=== PATIENT | male | born 1950 | race Caucasian/White ===

== ENCOUNTER 2018-07-17 10:52 | Inpatient (IN) | payer MEDICARE ==
[~2018-07-17] VITALS: Ht 167.6 cm; Wt 87.6 kg
[~2018-07-17 10:52] MED LIST: ALBU90OI INH; ALBU90OI61 INH; ALUMAG30SU PO; AMLO5 PO; ASPI81CH PO; AZIT500 PO; Aspir 8181 MG PO; BENTYL20 MG PO; BUPRENORPHINE HC8 MG SL; Bumetanide2 MG PO; CARV6.25 PO; CITA20 PO; COMBIVENT INH; COMBIVENT RESPIM4 GM INH; Catapres0.1 MG PO; Clonidine HCl0.2 MG PO; DOCU100 PO; DULERA 200 MCG/13 GM INH; DULO30 PO; FLUSAL2505 IH; FLUSAL2505 INH; FLUSAL5005 INH; GABA300 PO; GUAI600T33 PO; HYDCHL25 PO; Hydrochlorothia25 MG PO; Iron Supplemen325 MG PO; LAMZIDT PO; LEVFLO500 PO; LEVO750 PO; LISI20 PO; LISI5 PO; Lisinopril2.5 MG PO; METH10 PO; METO50 PO; METO50ER PO; MIRALAX119 GM PO; MORP30 PO; NICO14TP TOP; PANT40 PO; PRED10 PO; PRED20 PO; PROM25 PO; Percocet 10-321 EACH PO; Prednisone20 MG PO; SENN187 PO; SIMV10 PO; Stool Softener100 MG PO; TIOT18 INH; TRAZ50 PO; VENL37.5ER PO; VENL75ER PO; Ventolin Soln3 ML INH; Vistaril25 MG PO; Vitamin C1000 M1 PO
[2018-07-17 11:48] LABS: BASOPHILS ABSOLUTE AUTO 0.06 K/mm3 (0.00-0.23); BASOPHILS PERCENT AUTO 0 % (0-2); EOSINOPHILS ABSOLUTE AUTO 0.03 K/mm3 (0.00-0.68); EOSINOPHILS PERCENT AUTO 0 % (0-6); Hematocrit 39.1 % (37.0-53.0); Hemoglobin 11.9 g/dL (13.5-17.5); IMMATURE GRAN ABSOLUTE AUTO 0.23 K/mm3 (0.00-0.10); IMMATURE GRAN PERCENT AUTO 1 % (0-1); LYMPHOCYTES ABSOLUTE AUTO 0.62 K/mm3 (0.84-5.20); LYMPHOCYTES PERCENT AUTO 2 % (21-46); MONOCYTES ABSOLUTE AUTO 1.57 K/mm3 (0.16-1.47); MONOCYTES PERCENT AUTO 6 % (4-13); Mean Corpuscular HGB 30.5 pg (26.0-34.0); Mean Corpuscular HGB Conc 30.4 g/dL (31.5-36.5); Mean Corpuscular Volume 100 fL (80-100); Mean Platelet Volume 11.5 fL (9.1-12.4); NEUTROPHILS ABSOLUTE AUTO 23.28 K/mm3 (1.96-9.15); NEUTROPHILS PERCENT AUTO 90 % (41-73); Platelet Count 196 K/mm3 (150-400); RDW Coefficient Variation 12.1 % (11.7-14.2); RDW Standard Deviation 43.8 fL (35.1-46.3); White Blood Cell Count 25.79 K/mm3 (4.00-11.30)
[2018-07-17 12:13] LABS: Alanine Aminotransfer (ALT/SGP 54 U/L (12-78); Albumin, Blood 3.1 g/dL (3.4-5.0); Albumin/Globulin Ratio 0.8 (0.8-1.8); Alk Phos 165 U/L (50-136); Anion Gap 6 mmol/L (6-16); Aspartate Aminotrans (AST/SGOT 81 U/L (12-37); Bilirubin, Total 0.6 mg/dL (0.1-1.0); Blood Urea Nitrogen 48 mg/dL (8-24); Bun/Creatinine Ratio 20.7 (12.0-20.0); CO2, Blood 37 mmol/L (21-32); Calcium, Blood 9.4 mg/dL (8.5-10.1); Chloride, Blood 96 mmol/L (98-108); Creatinine, Blood 2.32 mg/dL (0.60-1.20); Globulin, Blood 4.1 g/dL (2.2-4.0); Glomerular Filtration Rate 30 (60-); Glucose, Blood 109 mg/dL (70-99); Potassium, Blood 4.2 mmol/L (3.5-5.5); Sodium, Blood 139 mmol/L (136-145); Total Protein, Blood 7.2 g/dL (6.4-8.2); Troponin I <0.015 ng/mL (0.000-0.040)
[2018-07-17] MEDS ORDERED: SERT50 PO (17:54)
[2018-07-17 18:22] LABS: Source, Urine Clean Catch
[2018-07-17 18:27] LABS: Appearance, Urine Hazy (Clear); Bilirubin, Urine Neg (Neg); Blood, Urine 5+ (Neg); Color, Urine Yellow (P-Yellow); Glucose Qualitative, Urine Neg (Neg); Ketones, Urine 1+ (Neg); Leukocyte Esterase, Urine 3+ (Neg); Nitrite, Urine Neg (Neg); Protein, Urine 2+ (Neg); Urobilinogen, Urine NORM (Normal)
[2018-07-17 18:56] LABS: Amorphous Light (0-Heavy); Bacteria Many /hpf; Hyaline Casts 0-2 /lpf (0-2); Squamous Epithelial Cells Few /hpf (Few)
--- NOTE | 2018-07-17 19:13 | NUR ---
SHIFT SUMMARY 1819 PT RECEIVED FROM ER. ALERT AND ORIENTED X3. VSS, SINUS TACHYCARDIA RATE 104 PER TELEMETRY. ABDOMEN DISTENDED, SOFT, TENDER ON PALPATION. PT AWARE OF STRICT NPO STATUS, PT VERBALIZES UNDERSTANDING. LUNG SOUNDS DIMINISHED, EXPIRATORY WHEEZES TO LEFT UPPER LOBE. 1+ PITTING EDEMA TO BLE. PT STANDING AT SIDE OF BED INDEPENDENTLY, DYSPNEA ON EXERTION. C/O 7/10 ABDOMINAL PAIN, MEDICATED WITH PRN PAIN MEDS.
--- NOTE | 2018-07-17 23:46 | NUR ---
24 HOUR URINE STARTED
[2018-07-18 04:22] LABS: Hematocrit 36.9 % (37.0-53.0); Hemoglobin 11.3 g/dL (13.5-17.5); Mean Corpuscular HGB 30.1 pg (26.0-34.0); Mean Corpuscular HGB Conc 30.6 g/dL (31.5-36.5); Mean Corpuscular Volume 98 fL (80-100); Mean Platelet Volume 11.2 fL (9.1-12.4); Platelet Count 203 K/mm3 (150-400); RDW Standard Deviation 43.6 fL (35.1-46.3); Red Blood Cell Count 3.76 M/mm3 (4.30-5.90); White Blood Cell Count 21.25 K/mm3 (4.00-11.30)
[2018-07-18 04:42] LABS: International Normalized Ratio 1.06; Prothrombin Time Results 11.2 Sec (9.7-11.5)
[2018-07-18 04:45] LABS: Albumin, Blood 2.7 g/dL (3.4-5.0); Anion Gap 4 mmol/L (6-16); BAND PERCENT MAN 11 % (0-8); BASOPHILS PERCENT MAN 0 % (0-2); Blood Urea Nitrogen 49 mg/dL (8-24); Bun/Creatinine Ratio 23.2 (12.0-20.0); CO2, Blood 38 mmol/L (21-32); Calcium, Blood 9.1 mg/dL (8.5-10.1); Chloride, Blood 99 mmol/L (98-108); Creatinine, Blood 2.11 mg/dL (0.60-1.20); EOSINOPHILS PERCENT MAN 0 % (0-6); Glomerular Filtration Rate 33 (60-); Glucose, Blood 137 mg/dL (70-99); MONOCYTES ABSOLUTE MAN 0.21 K/mm3 (0.16-1.47); MONOCYTES PERCENT MAN 1 % (4-13); MYELOCYTE ABSOLUTE MAN 0.21 K/mm3 (0.00-0.00); MYELOCYTE PERCENT MAN 1 % (0-0); Magnesium, Blood 2.2 mg/dL (1.6-2.4); NEUTROPHILS ABSOLUTE MAN 20.82 K/mm3 (1.96-9.15); Phosphorus, Blood 3.5 mg/dL (2.5-4.9); Potassium, Blood 4.1 mmol/L (3.5-5.5); SEG NEUTROPHILS PERCENT MAN 87 % (41-73); Sodium, Blood 141 mmol/L (136-145); TOTAL CELLS COUNTED 100
--- NOTE | 2018-07-18 06:53 | NUR ---
PCU NOC SHIFT SUMMARY PATIENT ALERT AND ORIENTED X4. RESP E/U ON 4 LPM NC. VSS. L/S COARSE TO DIM. PATIENTS ABD DISTENDED, FIRM, TENDER AND PAINFUL TO PALPATION. PATIENT MEDICATED FOR PAIN PER EMAR. FLUIDS RUNNING VIA IV PER EMAR. CANNON SAW PATIENT THIS SHIFT AND REDUCED FLUIDS BY 25MLS/HR. NO ACUTE EVENTS T/O SHIFT. VSS. REPORTED BACK TO KOLBY LENZ RN.
--- NOTE | 2018-07-18 13:44 | NUR ---
SANDRINE Be RN CALLED OUT FROM OR2. NOTIFIED US OF PT POSSIBLY NEEDING A VENT. RT CAME AND SET UP VENT IN PACU DUE TO NOT HAVING AVAILABILE BED IN ICU. SPOT 3 READY WITH APPROPRIATE EQUIPMENT FRO PT ARRIVAL FROM OR2.
--- NOTE | 2018-07-18 13:47 | NUR ---
07/18/18 1347 Keo Khan PATIENT ON SCHEDULED ANTIBIOTICS
--- NOTE | 2018-07-18 15:30 | NUR ---
PT TRANSFERRED FROM DAY SURG TO ICU 11 DUE TO INTUBATION. SETTINGS AT PRESSURE SUPPORT 450/PEEP 5/45% FIO2. OG IN PLACE AT LIS PER INSTRUCTION FROM DR DURHAM. ALLAN CATH PLACED PER DR DURHAM. SCDS IN PLACE AND BILATERAL WRIST RESTRAINTS. AWAITING 3RD IV PLACEMENT FOR MAINTENANCE FLUIDS DUE TO IV INCOMPATIBILITIES. CAN CARRIER AWARE.
--- NOTE | 2018-07-18 16:43 | NUR ---
RECEIVED PT FROM OR2 WITH ETT IN PLACE. RT AVAILABLE TO HOOK PT UP TO VENT ON ARRIVAL. PT PLACED ON PRESSURE SUPPORT, FI02 50%, TV 450, PEEP 5. SATS MAINTAINED HIGH 90'S T/O RECOVERY ACCEPT WHEN TO AWAKE. WRIST RESTRAINTS APPLIED, NEW 18G TO LEFT WRIST PLACED, HELD OFF PLACING THE OGT OR ALLAN TILL RECEIVED PROPOFOL DUE TO DECREASED STABILITY WITH FENTANYL COVERAGE. SPOKE TO DR DRUHAM AND RECEIVED ORDERS. CXR DONE. REPORT GIVEN. PT TOLERATED PROPOFOL AT 40MCGS DURING PACU STAY. ALLAN CATHETER PASSED TO ICU STAFF ALONG WITH REPORT REGARDING 24 HOUR URINE IN PROGRESS.
[2018-07-18 16:55] LABS: PCO2 Arterial 58.5 mmHg (35-45); PO2 Arterial 59.7 mmHg (80-100); pH Blood Arterial 7.39 (7.35-7.45)
--- NOTE | 2018-07-18 18:39 | NUR ---
SHIFT SUMMARY: PT REMAINS INTUBATED, AC 16/400/. PROPOFOL AT 30 MCG/KG/MIN. GETS AGITATED WITH REPOSITIONING AND STIMULATION. ALLAN BAG ON ICE FOR 24 HOUR URINE TEST. OG PUTTING OUT GREEN SECRETIONS. PLAN IS TO START WEANING IN AM. NO FURTHER NEEDS OR CONCERNS AT THIS TIME
--- NOTE | 2018-07-18 19:15 | NUR ---
ASSUMING CARE OF PT AT THIS TIME. PT REPORT RECEIVED AT BEDSIDE WITH OFFGOING NURSE, BILL QUIROS. PT LAYING IN BED, INTUBATED, AND SEDATED UPON ENTERING THE ROOM. VS STABLE - SEE VS FS. PT DOES NOT APPEAR TO BE IN DISTRESS AT THIS TIME. WILL REVIEW PLAN OF CARE.
--- NOTE | 2018-07-18 19:30 | NUR ---
ASSESSMENT PT CALM, COOPERATIVE, INCREASED AGITATION AND RESLTESSNESS WITH DECREASED SEDATION, RESPONDS TO VERBAL AND PAINFUL STIMULI, DOES NOT OPEN EYES, DOES NOT TRACK WITH EYES, NO MOVEMENT OF EYES, DOES NOT FOLLOW COMMANDS, DOES NOT NOD HEAD Y/N TO QUESTIONS. PROPOFOL AT 30 MCG/KG/MIN - WILL TITRATE TO EFFECT. NAFISA SENSATION. PT MADRIGAL. SLIGHT WEAKNESS NOTED FROM BASELINE. S/SX OF PAIN/DISCOMFORT NOTED. CNVI 3. MEDICATED WITH FENT PER PHYSICIAN'S ORDER / UTILIZED NONPHARM METHODS. NO S/SX OF PAIN/DSICOMFORT NOTED AFTER ADMINSITERING FENT. PT IN BILAT WRIST RESTRAINTS TO PROTECT VITAL LINES/CORDS/TUBES AND TO PROTECT FROM SELF EXTUBATION. LUNGS CLEAR, LOWER LOBES DIMINIHSED. VENT SETTINGS: AC 16, TV 400, PEEP 5, FIO2 45%. RR 20'S. OXY SAT >90%. SUCTION VIA ETT: SMALL AMOUNTS OF THIN CLEAR SECRETIONS. AFEBRILE. NSR. HR 90'S. SBP 160'S. STRONG PULSES. EDEMA BLE'S. WARM, PINK SKIN. INCREASED RR, HR, AND BP NOTED WITH DECREASED SEDATION. HYPOACTIVE BT X4 QUADRANTS. ABD SOFT, TENDER WITH PALPATION, MOD DIST. OG IN PLACE. OG TO LIS: SMALL AMOUNTS OF GREEN/YELLOW SECRETIONS IN OG. NO BM. NPO D/T INTUBATION. WOUND VAC ABD - NO OUTPUT NOTED. F/C IN PLACE: CLEAR YELLOW URINE NOTED. [address] UNTIL 2344. PIV X3. D5W NS AT 50 ML/HR.
--- NOTE | 2018-07-18 23:45 | NUR ---
24 HR URINE 24 HR URINE COMPLETED AT THIS TIME. 24 HR URINE SENT TO LAB.
[2018-07-19 03:22] LABS: BASOPHILS ABSOLUTE AUTO 0.01 K/mm3 (0.00-0.23); BASOPHILS PERCENT AUTO 0 % (0-2); EOSINOPHILS PERCENT AUTO 0 % (0-6); Hematocrit 32.4 % (37.0-53.0); Hemoglobin 10.2 g/dL (13.5-17.5); IMMATURE GRAN ABSOLUTE AUTO 0.11 K/mm3 (0.00-0.10); IMMATURE GRAN PERCENT AUTO 1 % (0-1); LYMPHOCYTES ABSOLUTE AUTO 0.28 K/mm3 (0.84-5.20); LYMPHOCYTES PERCENT AUTO 2 % (21-46); MONOCYTES ABSOLUTE AUTO 0.68 K/mm3 (0.16-1.47); MONOCYTES PERCENT AUTO 4 % (4-13); Mean Corpuscular HGB Conc 31.5 g/dL (31.5-36.5); Mean Corpuscular Volume 99 fL (80-100); Mean Platelet Volume 11.2 fL (9.1-12.4); NEUTROPHILS ABSOLUTE AUTO 16.14 K/mm3 (1.96-9.15); NEUTROPHILS PERCENT AUTO 94 % (41-73); Platelet Count 178 K/mm3 (150-400); RDW Standard Deviation 43.3 fL (35.1-46.3); Red Blood Cell Count 3.29 M/mm3 (4.30-5.90); White Blood Cell Count 17.22 K/mm3 (4.00-11.30)
[2018-07-19 03:36] LABS: Albumin, Blood 2.1 g/dL (3.4-5.0); Anion Gap 4 mmol/L (6-16); Blood Urea Nitrogen 46 mg/dL (8-24); Bun/Creatinine Ratio 28.4 (12.0-20.0); CO2, Blood 36 mmol/L (21-32); Calcium, Blood 8.5 mg/dL (8.5-10.1); Chloride, Blood 104 mmol/L (98-108); Creatinine, Blood 1.62 mg/dL (0.60-1.20); Glomerular Filtration Rate 45 (60-); Glucose, Blood 185 mg/dL (70-99); Magnesium, Blood 2.1 mg/dL (1.6-2.4); Phosphorus, Blood 1.6 mg/dL (2.5-4.9); Potassium, Blood 3.4 mmol/L (3.5-5.5); Sodium, Blood 144 mmol/L (136-145)
[2018-07-19 04:41] LABS: PCO2 Arterial 60.1 mmHg (35-45); PO2 Arterial 63.4 mmHg (80-100)
--- NOTE | 2018-07-19 05:00 | NUR ---
DR. CANNON CALLED DR. CANNON AT THIS TIME. INFORMED DR. CANNON OF AM LABS, MAINTAINCE FLUID, AND UO. DR. CANNON ORDERED POTASSIUM PHOS 20 MM IV. WAITING FOR MEDICATION FROM PHARMACY AT THIS TIME.
--- NOTE | 2018-07-19 05:13 | NUR ---
SHIFT ASSESSMENT NO ACUTE CHANGES NOTED T/O SHIFT. PT CALM WHILE ON SEDATION, COOPERATIVE, INCREASED AGITATION/ANXIETY/RESTLESSNESS WITH DECREASED SEDATION, RESPONDS TO VERBAL AND PAINFUL STIMULI, OPENED EYES SPONT DURING SEDATION VACATION, TRACKED WITH EYES DURING SEDATION VACATION, FOLLOWED COMMANDS DURING SEDATION VACATION, NODDED HEAD Y/N TO QUESTIONS DURING SEDATION VACATION. PROPOFOL CURRENTLY AT 40 MCG/KG/MIN - CONT TO TITRATE TO EFFECT. PT NODDED HEAD YES TO SENSATION INTACT BUE'S, NODDED HEAD NO TO N/T IN BUE'S, AND NODDED HEAD YES TO N/T BLE'S. PT MADRIGAL. SLIGHT WEAKNESS NOTED. S/SX OF PAIN/DISCOMFORT NOTED T/O SHIFT. PT NODDED HEAD YES TO PAIN/DISCOMFORT THIS AM. CONT TO MEDICATE WITH PAIN MEDS PER PHYSICIAN'S ORDER / UTILIZE NONPHARM METHODS. PT IN BILAT WRIST RESTRAINTS TO PROTECT VITAL LINES/CORDS/TUBES AND TO PROTECT FROM SELF-EXTUBATION. LUNGS CLEAR, LOWER LOBES DIMINISHED. VENT SETTINGS: AC 16, TV 400, PEEP 5, FIO2 40%. CONT TO TITRATE FIO2 TO MAINTAIN SPO2. RR 15 TO 30'S. SBT COMPLETED THIS AM BY RT ANDREW (SEE RT NOTE) ON PRESSURE SUPPORT 7, PEEP 5, FIO2 40%. SUCTION VIA ETT: SMALL AMOUNTS OF THIN CLEAR SECRETIONS. AFEBRILE. NSR WITH PVC'S. HR 70'S TO 90'S. BP STABLE - SEE VS FS. STRONG PULSES. EDEMA BLE'S. WARM, PINK SKIN. INCREASED RR, HR, AND BP NOATED WTIH DECREASED SEDATION. HYPOACTIVE BT X4 QUADRANTS. ABD SOFT, TENDER WITH PALPATION, MOD DIST. OG IN PLACE. OG TO LIS: SMALL AMOUNTS OF GREEN/YELLOW SECRETIONS IN OG TUBE. NO BM T/O SHIFT. NPO D/T INTUBATION. WOUND VAC ABD - NO OUTPUT. F/C IN PLACE: YELLOW CLOUDY URINE. 24 HR URINE COMPLETED AT 2345. PIV X3. D5W NS AT 50 ML/HR. NS TKO AT 10 ML/HR. WAITING FOR POTASSIUM PHOS IV FROM PHARMACY AT THIS TIME. WILL CONT TO MONITOR PT AND WILL PROVIDE BEDSIDE REPORT TO ONCOMING NURSE THIS AM.
--- NOTE | 2018-07-19 07:40 | NUR ---
ASSUMED CARE: PT RESTING IN BED, INTUBATED ON AC 14/400/40%/5. PROPOFOL AT 30MCG/KG/MIN. MINIMAL SECRETIONS FROM LUNGS NOTED. RESTRAINTS IN PLACE, OG PUTTING OUT GREEN SECRETIONS, SMALL AMOUNTS. ALLAN IN PLACE. PLAN IS FOR EXTUBATION TODAY.
--- NOTE | 2018-07-19 10:15 | NUR ---
DR DURHAM CAME TO SEE PT, PUT HIM ON SPONTANEOUS. PROPOFOL OFF, ALLOWING PT TO ROUSE MORE. CURRENTLY HE OPENS HIS EYES AND NODS HIS HEAD WHEN HE HEARS HIS NAME OR TO YES/NO QUESTIONS.
--- NOTE | 2018-07-19 11:00 | NUR ---
PT EXTUBATED. 5L O2 VIA NC. DOES NOT APPEAR TO BE IN ANY ACUTE DISTRESS
--- NOTE | 2018-07-19 18:05 | NUR ---
SHIFT SUMMARY: PT ON 5L NC POST EXTUBATION, SATTING LOW 90S. MEDICATED X2 FOR PAIN. REPOSITIONED IN BED FOR COMFORT. DRESSING IN TACT TO RIGHT MID ABDOMEN. DECLINES FURTHER NEEDS OR CONCERNS AT THIS TIME.
--- NOTE | 2018-07-19 21:39 | NUR ---
ASSUMED CARE PT IS ON 5L O2 NASAL CANULA. PT IS A&OX4; DENIES NEEDS CURRENTLY.
[2018-07-20 03:28] LABS: BASOPHILS ABSOLUTE AUTO 0.02 K/mm3 (0.00-0.23); BASOPHILS PERCENT AUTO 0 % (0-2); EOSINOPHILS PERCENT AUTO 0 % (0-6); Hematocrit 34.3 % (37.0-53.0); Hemoglobin 10.5 g/dL (13.5-17.5); IMMATURE GRAN ABSOLUTE AUTO 0.18 K/mm3 (0.00-0.10); IMMATURE GRAN PERCENT AUTO 1 % (0-1); LYMPHOCYTES ABSOLUTE AUTO 0.32 K/mm3 (0.84-5.20); LYMPHOCYTES PERCENT AUTO 2 % (21-46); MONOCYTES ABSOLUTE AUTO 0.63 K/mm3 (0.16-1.47); MONOCYTES PERCENT AUTO 3 % (4-13); Mean Corpuscular HGB 29.8 pg (26.0-34.0); Mean Corpuscular HGB Conc 30.6 g/dL (31.5-36.5); Mean Corpuscular Volume 97 fL (80-100); Mean Platelet Volume 11.1 fL (9.1-12.4); NEUTROPHILS ABSOLUTE AUTO 17.36 K/mm3 (1.96-9.15); NEUTROPHILS PERCENT AUTO 94 % (41-73); Platelet Count 177 K/mm3 (150-400); RDW Coefficient Variation 12.3 % (11.7-14.2); Red Blood Cell Count 3.52 M/mm3 (4.30-5.90); White Blood Cell Count 18.51 K/mm3 (4.00-11.30)
[2018-07-20 03:44] LABS: Albumin, Blood 2.1 g/dL (3.4-5.0); Anion Gap 4 mmol/L (6-16); Blood Urea Nitrogen 36 mg/dL (8-24); CO2, Blood 35 mmol/L (21-32); Calcium, Blood 8.4 mg/dL (8.5-10.1); Chloride, Blood 109 mmol/L (98-108); Creatinine, Blood 1.44 mg/dL (0.60-1.20); Glomerular Filtration Rate 52 (60-); Glucose, Blood 134 mg/dL (70-99); Magnesium, Blood 2.2 mg/dL (1.6-2.4); Sodium, Blood 148 mmol/L (136-145)
[2018-07-20 05:07] LABS: PCO2 Arterial 66.9 mmHg (35-45); PO2 Arterial 64.2 mmHg (80-100); pH Blood Arterial 7.34 (7.35-7.45)
--- NOTE | 2018-07-20 06:21 | NUR ---
SHIFT SUMMARY PT IS ALERT AND ORIENTED X 4 AND SLEPT THROUGH MOST OF THE NIGHT. PAIN IS ADEQUATELY CONTROLLED WITH 2MG DILAUDID Q2H. PT IS ON 5L NC. CURRENT GTTS: D5W @ 75ML/HR. WOUND VAC INTACT; DERESSING C/D/I.
--- NOTE | 2018-07-20 08:33 | NUR ---
NURSING PCU DAYSHIFT: Assumed care of pt at approx 0700. A/O, pleasant, cooperative w/care. Noted general weakness. C/O 7/10 abd pain r/t recent procedure, treating w/meds and positioning. Skin is fragile w/scattered bruising and scabs on ext's, R abd incision w/prevena vac in place. Cardiac monitoring present, NSR w/PVC's, no c/o CP/pressure, general SHAKE SAWYER edema. L/S w/exp wheezes t/o, respirations shallow, fine crackles to LLL, O2 sat stable on 5L NC, occ congested/SHAKE SAWYER cough. Abd mildly distended, tender, BT hypoactive, tolerating CL diet, FC w/stat lock present and draining well. PIV x2, s/l. Pt denies any current questions/needs at this time. Call light in reach, able to use w/o difficulty. Seen by nephrology, new d/o received, awaiting rounding from surgeon and PMD. Cont to monitor for any changes.
--- NOTE | 2018-07-20 09:09 | NUR ---
NURSING ICU DAYSHIFT: Assumed care of pt at approx 0700. A/O, pleasant, cooperative w/care. Noted general weakness. C/O 10/26 abd pain r/t recent procedure, treating w/meds and positioning. Skin is fragile w/scattered bruising and scabs on ext's, R abd incision w/prevena vac in place. Cardiac monitoring present, NSR w/PVC's, no c/o CP/pressure, general MATTRESS SPECIALIST edema. L/S w/exp wheezes t/o, respirations shallow, fine crackles to LLL, O2 sat stable on 5L NC, occ congested/MATTRESS SPECIALIST cough. Abd mildly distended, tender, BT hypoactive, tolerating CL diet, FC w/stat lock present and draining well. PIV x2, D5 infusing at 75cc as per d/o. Pt denies any current questions/needs at this time. Call light in reach, able to use w/o difficulty. Seen by nephrology, new d/o received, awaiting rounding from surgeon and PMD. Cont to monitor for any changes.
--- NOTE | 2018-07-20 09:09 | NUR ---
NURSING PCU DAYSHIFT: Assumed care of pt at approx 0700. A/O, pleasant, cooperative w/care. Noted general weakness. C/O 7/10 abd pain r/t recent procedure, treating w/meds and positioning. Skin is fragile w/scattered bruising and scabs on ext's, R abd incision w/prevena vac in place. Cardiac monitoring present, NSR w/PVC's, no c/o CP/pressure, general CONSTRUCTION RIGGER edema. L/S w/exp wheezes t/o, respirations shallow, fine crackles to LLL, O2 sat stable on 5L NC, occ congested/CONSTRUCTION RIGGER cough. Abd mildly distended, tender, BT hypoactive, tolerating CL diet, FC w/stat lock present and draining well. PIV x2, D5 infusing at 75cc as per d/o. Pt denies any current questions/needs at this time. Call light in reach, able to use w/o difficulty. Seen by nephrology, new d/o received, awaiting rounding from surgeon and PMD. Cont to monitor for any changes.
--- NOTE | 2018-07-20 10:44 | NUR ---
NOTED CONFUSION/FORGETFUL Though pt was oriented this a.m., intermittent confusion and forgetfulness has been noted. Pt asked who had eaten most of his CL breakfast this a.m. and had no recollection of what care was completed the previous hour. Intermittent irritability also noted followed by pt apologizing and stating he is not sure as to why he is making irritable comments. Appears to be resting comfortably at this time. Call light remains in reach, cont to monitor for any changes.
--- NOTE | 2018-07-20 13:49 | NUR ---
NURSING ICU TRANSFER SUMMARY: No acute changes noted t/o the a.m. Seen by anesthesiology medical doctor, new d/o received. Pt changed to surgical status w/o tele, bed assignment received, rpt given. Call placed to daughter, no answer, will notify accepting RN. No s/s of acute distress at this time, will xfer to surgical unit via bed, monitor until xfer is completed.
--- NOTE | 2018-07-20 17:37 | NUR ---
SHIFT SUMMARY PT HAS DONE WELL SINCE ARRIVAL TO UNIT. MEDICATED ONCE WITH IV DILAUDID, WILL SWITCH TO ORAL PERCOCET. O2 TITRATED TO 4L NC, O2 SAT 94%.
--- NOTE | 2018-07-20 18:24 | NUR ---
VS THIS AFTERNOON WERE HYPERTENSIVE. RECHECK B/P, 152/72 WHILE AT REST. PT REPORTS VS THIS AFTERNOON WERE AFTER TRANSFERING TO BS.
[2018-07-21 06:24] LABS: BASOPHILS ABSOLUTE AUTO 0.03 K/mm3 (0.00-0.23); BASOPHILS PERCENT AUTO 0 % (0-2); EOSINOPHILS PERCENT AUTO 0 % (0-6); Hematocrit 33.7 % (37.0-53.0); Hemoglobin 10.2 g/dL (13.5-17.5); IMMATURE GRAN ABSOLUTE AUTO 0.37 K/mm3 (0.00-0.10); IMMATURE GRAN PERCENT AUTO 2 % (0-1); LYMPHOCYTES ABSOLUTE AUTO 0.96 K/mm3 (0.84-5.20); LYMPHOCYTES PERCENT AUTO 5 % (21-46); MONOCYTES ABSOLUTE AUTO 1.13 K/mm3 (0.16-1.47); MONOCYTES PERCENT AUTO 6 % (4-13); Mean Corpuscular HGB 30.4 pg (26.0-34.0); Mean Corpuscular HGB Conc 30.3 g/dL (31.5-36.5); Mean Corpuscular Volume 100 fL (80-100); Mean Platelet Volume 11.4 fL (9.1-12.4); NEUTROPHILS ABSOLUTE AUTO 15.74 K/mm3 (1.96-9.15); NEUTROPHILS PERCENT AUTO 86 % (41-73); Platelet Count 175 K/mm3 (150-400); RDW Coefficient Variation 12.3 % (11.7-14.2); RDW Standard Deviation 45.3 fL (35.1-46.3); Red Blood Cell Count 3.36 M/mm3 (4.30-5.90); White Blood Cell Count 18.23 K/mm3 (4.00-11.30)
--- NOTE | 2018-07-21 06:32 | NUR ---
SUMMARY: NO ACUTE CHANGE THIS SHIFT. PT SLEPT WELL. UP TO VOID X2. ATTEMPTING TO WEAN 02 UNSUCCESSFUL. PT IS ON 4.5 L, SATS 88-94%. PT HAS DYSAPNEA ON EXERTION, TAKES A GOOD AMOUNT OF TIME TO RECOVER. ENCOURAGING PURSED LIP BREATHING AFTER EXERTION. VSS AND SURGICAL SITE WNL. PT TOLERATING FULL LIQ DIET, DENIES N/V. PT DENIED PAIN TONIGHT. WILL CTM PT STATUS AND REPORT TO DAY RN
[2018-07-21 06:50] LABS: Magnesium, Blood 2.4 mg/dL (1.6-2.4)
[2018-07-21 06:51] LABS: Alanine Aminotransfer (ALT/SGP 35 U/L (12-78); Albumin/Globulin Ratio 0.5 (0.8-1.8); Alk Phos 89 U/L (50-136); Anion Gap 4 mmol/L (6-16); Aspartate Aminotrans (AST/SGOT 33 U/L (12-37); Bilirubin, Total 0.8 mg/dL (0.1-1.0); Blood Urea Nitrogen 35 mg/dL (8-24); Bun/Creatinine Ratio 24.5 (12.0-20.0); CO2, Blood 36 mmol/L (21-32); Calcium, Blood 8.6 mg/dL (8.5-10.1); Chloride, Blood 107 mmol/L (98-108); Creatinine, Blood 1.43 mg/dL (0.60-1.20); Globulin, Blood 3.7 g/dL (2.2-4.0); Glomerular Filtration Rate 52 (60-); Glucose, Blood 128 mg/dL (70-99); Phosphorus, Blood 2.2 mg/dL (2.5-4.9); Potassium, Blood 3.7 mmol/L (3.5-5.5); Sodium, Blood 147 mmol/L (136-145); Total Protein, Blood 5.7 g/dL (6.4-8.2)
[2018-07-21 10:44] LABS: PCO2 Arterial 69.2 mmHg (35-45); PO2 Arterial 64.7 mmHg (80-100); pH Blood Arterial 7.33 (7.35-7.45)
[2018-07-21 11:08] LABS: ALDOS/RENIN RATIO <1.3 (0.0-30.0); ALDOSTERONE <1.0 ng/dL (0.0-30.0)
--- NOTE | 2018-07-21 13:27 | NUR ---
PT HAD INCREASED CONFUSION AT APROX 1030, ORIENTED TO SELF BUT DID NOT KNOW YEAR/PLACE/SITUATION. PT ALSO HAS VISABLE TREMORS IN BUE. DR MÉNDEZ NOTIFIED-ORDER FOR ABG. PER RESULTS CO2 69, NOTIFED AND ORDER FOR BIPAP PLACED. RT NOTIFIED AND BIPAP WAS PLACED ON PATIENT. TOLERATING WELL.
--- NOTE | 2018-07-21 18:45 | NUR ---
SHIFT SUMMARY PT C/O THAT HE "CAN'T BREATHE" WHILE WEARING BI-PAP-ONLY ABLE TO TOELRATE FOR APROX 4 HRS WHILE HE SLEPT. TRIED TO TITRATE O2 TO 4.5L NC, O2 SAT DROPPED TO 85% SO PT INCREASED BACK UP TO 5L NC-O2 SAT 92%. PAIN MEDICATION SWITCHED TO ULTRAM-PT REPORTS GOOD RESULTS WITH THIS.
[2018-07-22 03:39] LABS: PO2 Arterial 67.3 mmHg (80-100); pH Blood Arterial 7.39 (7.35-7.45)
[2018-07-22 04:19] LABS: Hematocrit 33.3 % (37.0-53.0); Hemoglobin 10.2 g/dL (13.5-17.5)
[2018-07-22 04:38] LABS: Albumin, Blood 2.1 g/dL (3.4-5.0); Anion Gap 2 mmol/L (6-16); Blood Urea Nitrogen 31 mg/dL (8-24); Bun/Creatinine Ratio 22.1 (12.0-20.0); CO2, Blood 37 mmol/L (21-32); Calcium, Blood 8.5 mg/dL (8.5-10.1); Chloride, Blood 106 mmol/L (98-108); Glomerular Filtration Rate 53 (60-); Glucose, Blood 106 mg/dL (70-99); Magnesium, Blood 2.2 mg/dL (1.6-2.4); Phosphorus, Blood 2.3 mg/dL (2.5-4.9); Potassium, Blood 3.4 mmol/L (3.5-5.5); Sodium, Blood 145 mmol/L (136-145)
--- NOTE | 2018-07-22 06:31 | NUR ---
SUMMARY: SEE RT ASSESSMENTS ASWELL. PT HAS BEEN A/O TONIGHT. ATTEMPTING TO USE BIPAP WITH POOR RESULT. SP02 UNABLE TO BE MAINTAINED ABOVE 86%, AT TIMES PT WOULD BE AT 88 OR 89%, BUT THEN DROP BACK TO 84-86 RANGE. SETTINGS ADJUSTED ON BIPAP MULTIPLE TIMES AND PT REPOSITIONED. RT IN TO ASSESS PT SERVERAL TIMES, WHEN BIPAP CONTINUED TO ALARM. AT ABOUT 0300, RT PUT PT BACK ON 7L NC AND PT SPO2 AT 88-92%. DR. SHEETS NOTIFIED OF PT STATUS AND 2 VIEW CHEST XRAY ORDERED ALONG WITH ABG AND BNP. NO CRITICAL RESULTS WITH DRAWS. PT HAS REMAINED A/O, PT SEEMING TO BE BETTER THIS AM. PT WEARING BIPAP AND SP02 CURRENTLY 88% OTHERWISE PT STABLE, VSS, MEDICATED FOR PAIN X1. SURGICAL SITE WNL. PT GETTING UP TO COMMODE SBA, DYSAPNEA WITH EXERTION. WILL CTM PT STATUS AND REPORT TO DAY RN
--- NOTE | 2018-07-22 07:43 | NUR ---
AT ABOUT 0713 PT REPORTED PAIN AND STATES THAT HE WANTS THE DOCTOR CALLED BECAUSE HE IS SO PAINFUL. PT REPORTS TO THIS RN THAT HE SPECIFICALLY ASKED THAT I CALL THE DOCTOR TONIGHT AND IS ANGRY THE DOCTOR WAS NOT CALLED. PT DID NOT SPEAK TO THIS RN ABOUT THIS THIS SHIFT AND PT WAS ASKED ABOUT PAIN TONIGHT, IN WHICH PT DENIED NEED FOR PAIN MEDICATION EXCEPT FOR START OF SHIFT, AND PT WAS MEDICATED. PT GIVEN AN ULTRAM AT THIS TIME. WILL MAKE DAY RN AWARE.
[2018-07-22 11:07] LABS: CREATININE, URINE 70.8 mg/dL (Not Estab.)
--- NOTE | 2018-07-22 17:31 | NUR ---
SHIFT SUMMARY NO ACUTE CHANGES THIS SHIFT. PT DOING BETTER TODAY. LUNGS WITH FINE CRACKLES IN THE BASES. PT GETS VERY SOB OF WITH EXERTION AND IS ALSO SOB AT REST AT TIMES. BREATHING TXS PER RT. CONT BIOX IN PLACE. ON 5L NC SATTING BETWEEN 90-93%. PT UP TO BSC WITH 1 SBA. DIET ADVANCED TO REGULAR AND PT FRANK WELL WITH NO N/V. PT REPORTS PASSING GAS. IVF INFUSING PER ORDERS. PROVENA WOUND VAC IN PLACE AND IS CDI. PT USES CALL LIGHT APPROPRIATELY. PT PLANNING TO DC TO SNF POSSIBLY TOMORROW.
[2018-07-22 22:07] LABS: METANEPHRINE, UR 282 ug/L (Undefined)
[2018-07-23 04:57] LABS: Hematocrit 31.9 % (37.0-53.0); Hemoglobin 9.7 g/dL (13.5-17.5)
[2018-07-23 05:12] LABS: Albumin, Blood 2.1 g/dL (3.4-5.0); Anion Gap 3 mmol/L (6-16); Blood Urea Nitrogen 28 mg/dL (8-24); Bun/Creatinine Ratio 18.4 (12.0-20.0); CO2, Blood 38 mmol/L (21-32); Calcium, Blood 8.3 mg/dL (8.5-10.1); Chloride, Blood 105 mmol/L (98-108); Creatinine, Blood 1.52 mg/dL (0.60-1.20); Glomerular Filtration Rate 49 (60-); Glucose, Blood 113 mg/dL (70-99); Magnesium, Blood 2.3 mg/dL (1.6-2.4); Phosphorus, Blood 3.1 mg/dL (2.5-4.9); Potassium, Blood 3.8 mmol/L (3.5-5.5); Sodium, Blood 146 mmol/L (136-145)
--- NOTE | 2018-07-23 06:55 | NUR ---
recvd report from previous shift rn summer, pt lying in bed, a/0 x4, pleasant/cooperative, 5l nc with lungs diminished, slight exp wheeze in bases. bed in lowest position, call light within reach, bed rails up x 2
--- NOTE | 2018-07-23 16:43 | NUR ---
shift summary: vss, no acute changes. pt remained on continuous bioxx with spo2 >92% on 5l NC. pt reports SOB with talking and exertion. DC IV fluids per Dr Moreno, administered Lasix with urine output >500 ml. pt up in chair x 1, worked with physical therapy x 1, reports feeling weak. pt states he does not feel he would be able to go home. This RN spoke with Dr Swenson, who agrees pt will most likely need to continue in the hospital this weekend, SNF on wednesday if bed is available. PT recommends SNF placement as well following today's therapy. pt reports slight nausea, no vomiting, reports he is "just not hungry" at lunch time, only drinks approx 150 ml coffee. provided pt with antinausea medication per jun.
--- NOTE | 2018-07-23 22:43 | NUR ---
PT YELLING AT STAFF. PT STATES HE ASKED TO USE RESTROOM HOWEVER HE DID NOT ASK ANY STAFF MEMBER TO USE RESTROOM. PT APPEARS CONFUSED.
[2018-07-24 04:50] LABS: BASOPHILS ABSOLUTE AUTO 0.02 K/mm3 (0.00-0.23); BASOPHILS PERCENT AUTO 0 % (0-2); EOSINOPHILS ABSOLUTE AUTO 0.44 K/mm3 (0.00-0.68); EOSINOPHILS PERCENT AUTO 4 % (0-6); Hematocrit 32.4 % (37.0-53.0); Hemoglobin 9.8 g/dL (13.5-17.5); IMMATURE GRAN ABSOLUTE AUTO 0.45 K/mm3 (0.00-0.10); IMMATURE GRAN PERCENT AUTO 4 % (0-1); LYMPHOCYTES ABSOLUTE AUTO 0.91 K/mm3 (0.84-5.20); LYMPHOCYTES PERCENT AUTO 8 % (21-46); MONOCYTES ABSOLUTE AUTO 0.81 K/mm3 (0.16-1.47); MONOCYTES PERCENT AUTO 7 % (4-13); Mean Corpuscular HGB Conc 30.2 g/dL (31.5-36.5); Mean Corpuscular Volume 99 fL (80-100); Mean Platelet Volume 10.4 fL (9.1-12.4); NEUTROPHILS ABSOLUTE AUTO 9.09 K/mm3 (1.96-9.15); NEUTROPHILS PERCENT AUTO 78 % (41-73); Platelet Count 177 K/mm3 (150-400); RDW Coefficient Variation 12.2 % (11.7-14.2); RDW Standard Deviation 44.3 fL (35.1-46.3); Red Blood Cell Count 3.27 M/mm3 (4.30-5.90); White Blood Cell Count 11.72 K/mm3 (4.00-11.30)
[2018-07-24 05:12] LABS: Albumin, Blood 2.2 g/dL (3.4-5.0); Anion Gap 3 mmol/L (6-16); Blood Urea Nitrogen 24 mg/dL (8-24); Bun/Creatinine Ratio 15.5 (12.0-20.0); CO2, Blood 36 mmol/L (21-32); Calcium, Blood 8.4 mg/dL (8.5-10.1); Chloride, Blood 105 mmol/L (98-108); Creatinine, Blood 1.55 mg/dL (0.60-1.20); Glomerular Filtration Rate 47 (60-); Glucose, Blood 105 mg/dL (70-99); Magnesium, Blood 2.3 mg/dL (1.6-2.4); Phosphorus, Blood 2.6 mg/dL (2.5-4.9); Potassium, Blood 3.9 mmol/L (3.5-5.5); Sodium, Blood 144 mmol/L (136-145)
--- NOTE | 2018-07-24 06:33 | NUR ---
SHIFT SUMMARY PT IS S/P APPY WITH ILEOCECECTOMY. 3.5L VIA NC, USED BIPAP ON AND OFF OVERNIGHT. PT BECOMES SOB WITH ANY EXERTION AND O2 SATS DROP EVEN WITH CONVERSATION. MEDICATED FOR PAIN PER EMAR; PT HAS CHRONIC PAIN ISSUES AND COMPLAINS THE PERCOCET IS INEFFECTIVE ON ITS OWN, MEDICATED W/ IV PAIN MEDS TWICE. PREVENA IN PLACE TO RLQ. PT HAD A SMEAR LAST NIGHT, PASSING SOME FLATUS. HE IS FORGETFUL AND INTERMITTENTLY IRRITIBLE WITH CARES. WILL CTM UNTIL PASS TO NEXT SHIFT.
--- NOTE | 2018-07-24 17:15 | NUR ---
SUMMARY PT PLEASANT T/O MOST OF SHIFT. APPEARED TO BECOME CONFUSED AND IRRITABLE THIS AFTERNOON, WAS ATTEMPTING TO USE REMOTE TO CHANGE CHANNELS ON COMPUTER INSTEAD OF TV. REORIENTED. MEDICATED PER ORDERS FOR PAIN TO ABD T/O SHIFT. SOB W/EXERTION. O2 SATS DROPPED TO LOW 80S WHEN PT REMOVED NC TO BLOW NOSE AND FORGOT TO REPLACE IN NARES. 02 SATS NOW IN LOW 90S. CALL LIGHT IN REACH.
--- NOTE | 2018-07-24 19:30 | NUR ---
RECEIVED HAND OFF FROM DAY NURSE USING SBAR DURING BEDSIDE REPORT. ROOM, POC, ANS CALL [facility] REITERATED, VOICES UNDERSTANDING. ALL QUESTIONS ANSWERED AT THIS TIME. SHIFT ASSESSMENT IN PROGRESS. SAFETY MEASURES IN PLACE. WILL CONTINUE TO MONITOR.
--- NOTE | 2018-07-24 21:20 | NUR ---
PLACED ON BSC. URINATED 100ML AND SMALL SMEAR OF BM CLEANED. ASSSITED BACK TO SITTING UP ON SIDE OF BED. DENIES FURTHER NEEDS AT THIS TIME. SAFETY MEASURES IN PLACE. WILL CONTINUE TO MONITOR.
--- NOTE | 2018-07-24 21:50 | NUR ---
ASSISTED WITH LYING IN BED. PILLOWS ADJUSTED BEHIND BACK AND PILLOW PLACED UNDER BUTTOCKS AND SCROTUM PER REQUEST HE LIFTED HIMSELF UP IN THE BED. RECOVERY OF O2 SAT LEVEL WAS WITHIN SECONDS AFTER ENCOURAGING HIM TO BREATH. DENIES FURTHER NEEDS AT THIS TIME. SAFETY MEASURES IN PLACE. WILL CONTINUE TO MONITOR.
--- NOTE | 2018-07-24 21:55 | NUR ---
USED CALL [facility] TO CALL FOR PAIN MEDS. WHEN ASKED WHAT HIS NEEDS ARE, HE STATES THAT HE WAS JUST TRYING TO TURN HIS TV VOLUME UP. PT ASSISTED WITH THIS AND ENCOURAGED TO USE CALL [facility] WITH NEEDS. DENIES FURTHER NEEDS AT THIS TIME. SAFETY MEASURES IN PLACE. WILL CONTINUE OT MONITOR.
--- NOTE | 2018-07-24 22:20 | NUR ---
PT CALLED OUT VERBALLY FROM HIS ROOM DEMANDING THAT SOMEONE COME IN AND HELP HIM IMMEDIATELY. NURSING ENTERED HIS ROOM TO ASK WHAT HE NEEDED AND WHY HE DIDN'T USE HIS CALL [facility]. HE STATED THAT HE HIT ALL THE BUTTONS AND THAT NO ONE CAME TO SEE ABOUT HIS NEEDS. NURSING REITERATED TAHT THE BIG RED BUTTON IS THE ONE THAT CALLS NURSING. HE STATES THAT HE WANTES HIS PAIN PILLS. NURSING REITERATED THAT HIS NEXT AVAILABLE PAIN PILLS WOULD BE AT 0045HRS. PT STATES, "I HAVE NEVER IN MY LIFE HAD TO WAIT THAT LONG FOR PAIN MEDICATION!" NURSING REMINDED HIM THAT HIS PAST PAIN MED WAS LESS THAT 2 HRS AGO AND WERE ORDERED EVERY 4HRS NEEDED. ALSO THAT IV PAIN MEDS WERE AVAILABLE AT THIS TIME. HE STATED, "YOU ARE SPLITTING HAIRS AND I JUST WANT MY PAIN MEDICINE, I DON'T CARE IF IT IS IN MY MOUTH OR MY ARM. LISTEN, I HAVE BEEN IN REHAB AND TALKED TO THOSE KIDS ABOUT DRUGS, I KNOW WHAT IS GOING ON." NURSING LEFT ROOM TO GET IV PAIN MEDS. WITHIN 1 MINUTE, PT HAD PUSHED CALL [facility] AGAIN. WHEN NURSING RETURNED WITH IVP PAIN MEDS, PT STATED THAT HE WAS TRYING TO TURN THE TV BACK ON. NURSING ASSSITED WITH TURNING THE TV ON. IVP PRN PAIN MED GIVEN, WILL REASSESS FOR EFFECTIVENESS. SAFETY MEASURES IN PLACE. WILL CONTINUE TO MONITOR.
--- NOTE | 2018-07-24 23:15 | NUR ---
ASSISTED BACK TO SEMI FOWLERRS AFTER PT SAT SELF UP ON SIDE OF BED. SAFETY MEASURES IN PLACE. WILL CONTINUE TO MONITOR.
--- NOTE | 2018-07-25 00:35 | NUR ---
ASSISTED BACK TO SEMI FOWLERS AFTER PT SAT SELF UP ON SIDE OF BED. SAFETY MEASURES IN PLACE. WILL CONTINUE TO MONITOR.
--- NOTE | 2018-07-25 01:25 | NUR ---
ASSISTED TO BSC AND BACK TO BED, URINATED 150ML IN COMMODE. POSITIONED SELF FOR COMFORT. DENIES FURTHER NEEDS AT THIS TIME. SAFETY MEASURES IN PLACE. WILL COTINUE TO MONITOR.
--- NOTE | 2018-07-25 02:34 | NUR ---
ASSISTED BACK TO SEMI FOWLERS AFTER PT SAT SELF UP ON SIDE OF BED. SAFETY MEASURES IN PLACE. WILL CONTINUE TO MONITOR.
--- NOTE | 2018-07-25 03:48 | NUR ---
ASSISTED BACK TO [place] AFTER PT SAT SELF UP ON SIDE OF BED WHEN DONE USING BSC. 250ML URINE AND 1XBM EMPTIED BY SECURITY PUBLIC SAFETY OFFICER. SAFETY MEASURES IN PLACE. WILL CONTINUE TO MONITOR.
--- NOTE | 2018-07-25 04:20 | NUR ---
ASSISTED BACK TO [place] AFTER PT SAT SELF UP ON SIDE OF BED WHEN DONE USING BSC AFTER PASSING A LOT OF GAS. SAFETY MEASURES IN PLACE. WILL CONTINUE TO MONITOR.
[2018-07-25 04:25] LABS: BASOPHILS ABSOLUTE AUTO 0.02 K/mm3 (0.00-0.23); BASOPHILS PERCENT AUTO 0 % (0-2); EOSINOPHILS PERCENT AUTO 4 % (0-6); Hematocrit 31.8 % (37.0-53.0); Hemoglobin 9.7 g/dL (13.5-17.5); IMMATURE GRAN PERCENT AUTO 3 % (0-1); LYMPHOCYTES PERCENT AUTO 7 % (21-46); MONOCYTES ABSOLUTE AUTO 0.96 K/mm3 (0.16-1.47); MONOCYTES PERCENT AUTO 8 % (4-13); Mean Corpuscular HGB 31.1 pg (26.0-34.0); Mean Corpuscular HGB Conc 30.5 g/dL (31.5-36.5); Mean Platelet Volume 11.2 fL (9.1-12.4); NEUTROPHILS ABSOLUTE AUTO 9.97 K/mm3 (1.96-9.15); NEUTROPHILS PERCENT AUTO 78 % (41-73); Platelet Count 185 K/mm3 (150-400); RDW Coefficient Variation 12.3 % (11.7-14.2); RDW Standard Deviation 45.5 fL (35.1-46.3); Red Blood Cell Count 3.12 M/mm3 (4.30-5.90); White Blood Cell Count 12.75 K/mm3 (4.00-11.30)
[2018-07-25 04:26] LABS: Mean Corpuscular Volume 102 fL (80-100)
[2018-07-25 04:42] LABS: Albumin, Blood 2.3 g/dL (3.4-5.0); Anion Gap 2 mmol/L (6-16); Blood Urea Nitrogen 22 mg/dL (8-24); Bun/Creatinine Ratio 13.5 (12.0-20.0); CO2, Blood 36 mmol/L (21-32); Calcium, Blood 8.5 mg/dL (8.5-10.1); Chloride, Blood 106 mmol/L (98-108); Creatinine, Blood 1.63 mg/dL (0.60-1.20); Glomerular Filtration Rate 45 (60-); Glucose, Blood 98 mg/dL (70-99); Magnesium, Blood 2.2 mg/dL (1.6-2.4); Phosphorus, Blood 2.5 mg/dL (2.5-4.9); Sodium, Blood 144 mmol/L (136-145)
--- NOTE | 2018-07-25 05:31 | NUR ---
ASSISTED BACK TO [place] AFTER PT SAT UP ON SIDE OF BED WHEN DONE USING BSC. 50ML URINE EMPTIED BY WHITE LEAD FILTERER. SAFETY MEASURES IN PLACE. WILL CONTINUE TO MONITOR.
--- NOTE | 2018-07-25 06:08 | NUR ---
LYING IN SEMI FOWLERS WITH EYES OPEN WHILE WATCHING TV. REPOSITIONS SELF FOR COMFORT. MEDICATED FOR PAIN X5. DENIES FURTHER NEEDS AT THIS TIME. SAFETY MEASURES IN PLACE. WILL GIVE HAND OFF TO ONCOMING SHIFT USING SBAR.
--- NOTE | 2018-07-25 17:58 | NUR ---
Shift Summary: Impulsive PT HAS BEEN IMPULSIVELY GETTING UP TO CHAIR AND BACK TO BED, ALARMS IN PLACE. PT STATES PAIN LEVEL OF 7 THROUGHOUT SHIFT, STAYED AT 7 AFTER MEDS BUT PATIENT STATES IT HAS IMPROVED. MINIMAL ASSISTANCE WITH TRANSFER TO BSC. LASIX 40MG GIVEN THIS AM PER DR. CANNON, PATIENT HAS BEEN URINATING FREQUENTLY DURING SHIFT. PATIENT S.O.B. WITH EXERTION, MINIMAL WALKING TO WINDOW IN ROOM, ENCOURAGING BEING ACTIVE. PT HAS HAD 2 BOWEL MOVEMENTS MAROONISH IN COLOR. PHYSICAN NOTIFIED BY PRIMARY RN.
[2018-07-25 18:31] LABS: Hematocrit 33.8 % (37.0-53.0); Hemoglobin 10.1 g/dL (13.5-17.5)
--- NOTE | 2018-07-25 19:45 | NUR ---
PT CALLED OUT OVER THE INTERCOM STATING, "I WANT SOMEONE IN HERE NOW!" WHEN ASKED WHAT HE NEEDED, HE STATED, "I WANT MY PAIN MEDS", "I HAVE BEEN LEFT IN HERE HURTING LIKE THIS!", "I'VE BEEN HURTING FOR SO LONG!" UPON ENTERING ROOM NURSING ASKED WHY HE DIDN'T SAY ANYTHING WHEN NURSING WAS AT BEDSIDE FOR ASSESMENT WHEN HE DENIED NEEDING ANYTHING, HE STATED, "I DID SAY SOMETHING!" NURSING ASKED FOR CHARGE NURSE TO ENTER ROOM AND ALLOW PT TO VOICE HIS CONCERNS. PT WAS AGREEABLE WITH CHARGE NURSE THAT WRITTING THE TIME THAT THE NEXT DOSE WAS AVAILABLE ON THE BOARD AND ON A PEICE OF PAPER AT BEDSIDE WOULD ALLOW PT TO BE ABLE TO KEEP UP WITH THE NEXT TIME THAT HIS PAIN MEDS WERE AVAILABLE. RATES CURRENT PAIN LEVEL AT 7/10 TO BACK, NECK, AND ABD. MEDICATED PER MD ORDERS. SAFETY MEASURES IN PLACE. WILL CONTINUE TO MONITOR.
--- NOTE | 2018-07-25 20:50 | NUR ---
INCONTINENT OF BOWEL NOTED WHEN ATTEMPTING TO APPLY NYSTATIN POWDER. PT CLEANED AND TRANSFERED TO CHAIR AT BEDSIDE. LINENS CHANGED AND HE WAS ASSISTED BACK TO BED. VOICES SHAME DUE TO INCONTINENT EPISODE, STATING, "I'M SO EMBARASED, I THOUGHT IT WAS JUST A FART!" NURSING VERBALIZED THAT IT IS OK. DENIES FURTHER NEEDS AT THIS TIME. SAFETY MEASURES IN PLACE. WILL CONTINUE TO MONITOR.
--- NOTE | 2018-07-25 22:45 | NUR ---
PT CALLED OUT AND ASKED IF NURSING WOULD LIKE SOME OF HIS HAM AND CHEESE SANDWICH. WHEN ROOM WAS ENTERED, PT WAS HOLDING A WADDED UP JUDGE PAD. HE HELD UP THE PAD AND ASKED AGAIN IF NURSING WOULD LIUKE TO HAVE SOME OF HIS WONDERFUL HAM AND CHEESE SANDWICH. NURSING RECEIVED THE JUDGE FROM HIM AND THANKED HIM FOR SHARING. PT SMILED AND RELAXED BACK INTO THE BED WHILE WATCHING TV. DENIES FURTHER NEEDS OR WANTS AT THIS TIME. SAFETY MEASURES IN PLACE. WILL CONTINUE TO MONITOR.
[2018-07-26 00:36] LABS: Hematocrit 33.1 % (37.0-53.0); Hemoglobin 9.9 g/dL (13.5-17.5)
--- NOTE | 2018-07-26 00:45 | NUR ---
NURSING ENTERED ROOM TO HANG PT'S 0000HRS DOSE OF ZOSYN ALONG WITH REQUESTED PERCOCET FOR PAIN. ZOSYN AND PERCOCET GIVEN PER MD ORDERS. PT THEN ASKS WHERE HIS OTHER PILL IS. WHEN ASKED WHAT OTHER PILL HE IS ASKING ABOUT HE STATES, "YOU KNOW, THAT OTHER PILL THAT STARTS WITH AN F THAT I ALWAYS TAKE WITH MY PERCOCET." NURSING PULLED UP PT'S MAR AND LOOKED AT HIS MED LIST AND INFORMED HIM THAT THERE WAS NO PILL ON HIS LIST THAT STARTED WITH AN F. WHEN ASKED IF HE COULD BE THINKING ABOUT A DIFFERENT MED HE BECAME VERY AGITATED AND BEGAN RAISING HIS VOICE STATING, "HERE WE GO AGAIN, EVERY DAMN TIME I WANT MY STUFF YOU HAVE TO TRY TO ARGUE WITH ME!." "I DON'T UNDERSTAND WHY YOU JUST CAN'T GO GET IT AND BRING IT TO ME!" AT THIS TIME NURSING CONTACTED CHARGE NURSE AND ASKED HIM TO SPEAK TO THE PT. WILL CONTINUE TO MONITOR.
--- NOTE | 2018-07-26 03:30 | NUR ---
PT GOT UP TO SIT ON THE SIDE OF THE BED AND SET OFF BED ALARM. PT STOOD UP SEVERAL MORE TIMES SETTING OFF THE BED ALARM EACH TIME. AFTER THE 4TH TIME NURSING ASKED OF HE WAS READY TO LAY BACK DOWN, PT STATED THAT HE WAS READY. NURSING ASSSITED IN HOLDING CORDS OUT OF THE WAY. PT ENTERED THE BED FACING THE HOB. NURSING ASSSITED AGAIN IN TURNING TO FACE THE FOOT OF THE BED. ONCE POSITIONED FOR COMFORT, PT ASKED NURSING WHY HE WAS BEING MISTREATED. NURSING ASKED WHAT HE MEANT BY THAT. PT STATES THAT NURSING HAS MISTREATED HIM ALL DAY AND ALL NIGHT. WHEN NURSING REITERATED THAT THIS SHIFT HAD STARTED AT 7PM AND THAT NURSING WAS NOT ON DUTY DURING THE DAY SHIFT. PT THEN STATES, "I KNOW IT WAS YOU, YOU WERE HERE!" NURSING UNABLE TO REORIENT PT AFTER SEVERAL MORE ATTEMPTS. SAFETY MEASURES IN PLACE. WILL CONTINUE TO MONITOR.
[2018-07-26 04:52] LABS: BASOPHILS ABSOLUTE AUTO 0.02 K/mm3 (0.00-0.23); BASOPHILS PERCENT AUTO 0 % (0-2); EOSINOPHILS ABSOLUTE AUTO 0.52 K/mm3 (0.00-0.68); EOSINOPHILS PERCENT AUTO 4 % (0-6); Hematocrit 32.4 % (37.0-53.0); Hemoglobin 9.7 g/dL (13.5-17.5); IMMATURE GRAN ABSOLUTE AUTO 0.38 K/mm3 (0.00-0.10); IMMATURE GRAN PERCENT AUTO 3 % (0-1); LYMPHOCYTES ABSOLUTE AUTO 1.16 K/mm3 (0.84-5.20); LYMPHOCYTES PERCENT AUTO 9 % (21-46); MONOCYTES ABSOLUTE AUTO 1.02 K/mm3 (0.16-1.47); MONOCYTES PERCENT AUTO 8 % (4-13); Mean Corpuscular HGB 30.1 pg (26.0-34.0); Mean Corpuscular HGB Conc 29.9 g/dL (31.5-36.5); Mean Corpuscular Volume 101 fL (80-100); Mean Platelet Volume 11.3 fL (9.1-12.4); NEUTROPHILS ABSOLUTE AUTO 10.05 K/mm3 (1.96-9.15); NEUTROPHILS PERCENT AUTO 76 % (41-73); Platelet Count 215 K/mm3 (150-400); RDW Coefficient Variation 12.6 % (11.7-14.2); RDW Standard Deviation 45.8 fL (35.1-46.3); Red Blood Cell Count 3.22 M/mm3 (4.30-5.90); White Blood Cell Count 13.15 K/mm3 (4.00-11.30)
[2018-07-26 05:07] LABS: Magnesium, Blood 2.1 mg/dL (1.6-2.4)
[2018-07-26 05:08] LABS: Albumin, Blood 2.5 g/dL (3.4-5.0); Anion Gap 3 mmol/L (6-16); Blood Urea Nitrogen 21 mg/dL (8-24); Bun/Creatinine Ratio 10.8 (12.0-20.0); CO2, Blood 36 mmol/L (21-32); Calcium, Blood 8.7 mg/dL (8.5-10.1); Chloride, Blood 106 mmol/L (98-108); Creatinine, Blood 1.95 mg/dL (0.60-1.20); Glomerular Filtration Rate 36 (60-); Glucose, Blood 111 mg/dL (70-99); Phosphorus, Blood 2.7 mg/dL (2.5-4.9); Sodium, Blood 145 mmol/L (136-145)
[2018-07-26 05:30] LABS: PCO2 Venous 71.5 mmHg (38-42); PO2 Venous 44.2 mmHg (38-42); pH Blood Venous 7.33 (7.34-7.37)
[2018-07-26 05:31] LABS: Base Excess Venous 11.8 mmol/L; Bicarbonate Venous 33.1 mmol/L (24.0-30.0)
--- NOTE | 2018-07-26 14:42 | NUR ---
DRESSING REMOVED PROVENA DRESSING REMOVED PER MD ORDERS. ZENA IN PLACE. NO DISCHARGE NOTED.
--- NOTE | 2018-07-26 16:36 | NUR ---
SHIFT SUMMARY PT HAS BEEN IN AND OUT OF BED. PAIN MANAGED WITH PRN MEDICATIONS DURING SHIFT. PT HAS HAD 3 MAROON BOWEL MOVEMENTS TODAY. MINIMAL URINARY OUTPUT. STABLE WITH TRANSFERS TO [place] [facility] [place] REMOVED WOUND VAC DRESSING FROM RIGHT LOWER ABDOMEN, ZENA IN PLACE.
--- NOTE | 2018-07-26 16:45 | NUR ---
ASSUMED CARE OF PATIENT AT THIS TIME.
--- NOTE | 2018-07-26 20:58 | NUR ---
O2.OFFERED SNACKS AND DRINK.OFFERED URINAL.PATIENT AGITATED AND RN CALLED.
--- NOTE | 2018-07-26 23:43 | NUR ---
TRANSFER PT WAS MOVED FROM ROOM 232 TO ROOM 224 DUE TO SAFETY CONCERNS. PT IS CONTINUOUSLY GETTING OOB AND ATTEMPTING TO WALK AROUND THE ROOM. HE IS UNSTAEDY ON HIS FEET AND HAS SOME CONFUSION. PT STATES THAT HE IN HIS HOUSE AND CAN DO WHAT HE PLEASES. PT REORIENTED FREQUENTLY YET CONTINUES TO BE VERBALLY AGGRESSIVE. PT IS REFUSING CARE AT THIS TIME. PT WAS OFFERED A W/C RIDE IN THE HALLS TO [facility] AND GET SOME"FRESH AIR" HE REFUSED. PT ATTEMPTED TO CALL THE POLICE. SECURITY WAS CALLED INTO THE ROOM TO ATTEMPT TO CALM HIM DOWN AND COMPLY WITH CARE. A VOICEMAIL WAS LEFT ON FAMILYS PHONE TO NOTIFY THEM OF THE ROOM CHANGE AND BEHAVIOUR
--- NOTE | 2018-07-27 01:05 | NUR ---
RESTRAINT PT HAS BECOME NONCOMPLIANT WITH CARE, HE IS BECOMING COMBATIVE, YELLING AND SWINGING THE PHONE, THREATENING TO BREAK IT IF WE DO NOT "CALL THE POLICE". SECURITY WAS NOTIFED AND CAME TO THE ROOM. PT WAS IN A W/C BUT KEPT STANDING UP AND ALMOST FALLING, PT WAS ENC TO GET IN BED FOR SAFETY, HE WAS NON COMPLIANT. PT WAS ASSISTED TO BED, HE BEGAN TO SWING AT STAFF. BILATERAL SOFT WRIST RESTRAINTS WERE APPLIED, ATIVAN WAS GIVEN PER HOSPITALIST ORDERS. PULSE OX IN PLACE, VSS, RESP LABORED DUE TO EXERTION. PT RECIEVED A SMALL SKIN TEAR TO HIS RIGHT HAND, PRESSURE DRSG WAS APPLIED. NOTIFIED OF RESTRAINTS, ORDER OBTAINED.
--- NOTE | 2018-07-27 03:07 | NUR ---
STATUS CHANGE O2 SATS HAVE DROPPED TO THE HIGH 70'S TO MID 80'S. APNEA PRESENT. CPAP PLACED ON PT, O2 MONITOR CHANGED, RT NOTIFIED. PT UNABLE TO WAKE. 0.4 MG NARCAN GIVEN. PT BEGAN TO WAKE A LITTLE, RESP INCREASED WNL, O2 SATS 93% ON CPAP WITH 8L 02. RT AT BEDSIDE. HOSPITALIST NOTIFED FOR FURTHER ORDERS. HOSPITALIST CAME TO THE BEDSIDE AND DECIDED TO TRANSFER PT TO PCU AND PLACE ON BIPAP. NURSING PROFESSOR OF BIOSTATISTICS NOTIFIED.
--- NOTE | 2018-07-27 03:40 | NUR ---
TRANSFER PT TRANSFERRED TO ICU 14 PCU STATUS. REPORT WAS GIVEN TO GREYSON QUIROS. RT IS AT BEDSIDE. PT PLACED ON BIPAP. VSS. VOICEMAIL WAS LEFT FOR FAMILY TO NOTIFY THEM OF TRANSFER.
[2018-07-27 04:47] LABS: BASOPHILS ABSOLUTE AUTO 0.03 K/mm3 (0.00-0.23); BASOPHILS PERCENT AUTO 0 % (0-2); EOSINOPHILS ABSOLUTE AUTO 0.34 K/mm3 (0.00-0.68); EOSINOPHILS PERCENT AUTO 3 % (0-6); Hematocrit 31.4 % (37.0-53.0); Hemoglobin 9.3 g/dL (13.5-17.5); IMMATURE GRAN ABSOLUTE AUTO 0.42 K/mm3 (0.00-0.10); IMMATURE GRAN PERCENT AUTO 4 % (0-1); LYMPHOCYTES ABSOLUTE AUTO 0.74 K/mm3 (0.84-5.20); LYMPHOCYTES PERCENT AUTO 7 % (21-46); MONOCYTES ABSOLUTE AUTO 0.78 K/mm3 (0.16-1.47); MONOCYTES PERCENT AUTO 7 % (4-13); Mean Corpuscular HGB 30.7 pg (26.0-34.0); Mean Corpuscular HGB Conc 29.6 g/dL (31.5-36.5); Mean Platelet Volume 11.1 fL (9.1-12.4); NEUTROPHILS ABSOLUTE AUTO 8.83 K/mm3 (1.96-9.15); NEUTROPHILS PERCENT AUTO 79 % (41-73); Platelet Count 207 K/mm3 (150-400); RDW Coefficient Variation 12.7 % (11.7-14.2); RDW Standard Deviation 47.7 fL (35.1-46.3); Red Blood Cell Count 3.03 M/mm3 (4.30-5.90); White Blood Cell Count 11.14 K/mm3 (4.00-11.30)
[2018-07-27 04:49] LABS: Mean Corpuscular Volume 104 fL (80-100)
[2018-07-27 05:06] LABS: Albumin, Blood 2.4 g/dL (3.4-5.0); Anion Gap 2 mmol/L (6-16); Blood Urea Nitrogen 16 mg/dL (8-24); Bun/Creatinine Ratio 9.4 (12.0-20.0); CO2, Blood 37 mmol/L (21-32); Calcium, Blood 8.9 mg/dL (8.5-10.1); Chloride, Blood 107 mmol/L (98-108); Glomerular Filtration Rate 43 (60-); Glucose, Blood 119 mg/dL (70-99); Magnesium, Blood 2.4 mg/dL (1.6-2.4); Phosphorus, Blood 3.5 mg/dL (2.5-4.9); Potassium, Blood 4.2 mmol/L (3.5-5.5); Sodium, Blood 146 mmol/L (136-145)
--- NOTE | 2018-07-27 08:00 | NUR ---
ARRIVAL TO ICU / SUMMARY PT ARRIVED TO ICU APPROX 0340. SINCE ARRIVAL, PT HAS BEEN MINIMALLY RESPONSIVE. TO MAINTAIN OXYGEN SATURATIONS PT REQUIRING BIPAP. NASOPHARYNGEAL AIRWAY PLACED BY RESPIRATORY THERAPY. PT TRIALED ON NASAL CANNULA, THEN EVENTUALLY PLACED BACK ON BIPAP DUE TO DESATURATIONS. PT'S EYES PINPOINT, SLUGGISH AND DO NOT TRACK THOUGH HAVE GOTTEN SLIGHTLY LARGER MORNING HAS PROGRESSED. PT RESPONDS WITH MOANS AND MOVEMENT OF ARMS/HANDS WITH PAINFUL STIMULI. PT LEFT IN RESTRAINTS TO PROTECT PT AND STAFF AND ENSURE CONTINUED BIPAP USE PT PROGRESSES. SEE SHIFT ASSESSMENT. SEE VITALS FLOWSHEET. REPORT TO ISHAAN WALLACE AT 0715 TO ASSUME CARE.
--- NOTE | 2018-07-27 11:13 | NUR ---
BEGINNING OF SHIFT Assumed care of pt at 0700. Report received from Leila QUIROS. Pt on BiPAP. At beginning of shift, pt aroused only to sternal rub. Dr Hooks in to see pt. Discussed plan of care and discussed pt's abdominal distention. Provider requested to be notified if pt's family is at bedside. Dr Brooks in to see pt. This RN also discussed pt's abdominal distention with Dr Brooks. No new orders. Pt's daughter in law, Maggie, at bedside. Notified Dr Hooks. Pt awokened and became very agitated shortly after administration of lasix. Pt yelled that he had to pee. Urinal placed, however pt was unable to void. Call placed to Dr Hooks. Orders given for mcknight catheter. Pt medicated for pain. Dr Hooks aware. Dr Hooks at bedside shortly afterwards to meet with the pt's family member. At this time, pt is wearing BiPAP and sleeping in bed. Restraints remain in place. Pt NPO due to altered mentation and difficulty following directions. Care of pt shared with SN Schneider. Orders acknowledged by this RN and Jennie HODGSON.
[2018-07-27 12:12] LABS: Source, Urine Catheter
[2018-07-27 12:32] LABS: Bilirubin, Urine Neg (Neg); Blood, Urine 1+ (Neg); Glucose Qualitative, Urine Neg (Neg); Ketones, Urine Neg (Neg); Leukocyte Esterase, Urine Neg (Neg); Nitrite, Urine Neg (Neg); Protein, Urine 2+ (Neg); Urobilinogen, Urine NORM (Normal)
[2018-07-27 12:58] LABS: Appearance, Urine Clear (Clear); Color, Urine Yellow (P-Yellow)
[2018-07-27 12:59] LABS: Bacteria Few /hpf; Squamous Epithelial Cells Not Seen /hpf (Few); White Blood Cells, Urine 0-2 /hpf (0-5); Yeast/Fungi Urine Few /hpf
[2018-07-27 14:38] LABS: PO2 Arterial 87.3 mmHg (80-100); pH Blood Arterial 7.32 (7.35-7.45)
[2018-07-27 14:39] LABS: PCO2 Arterial 70.3 mmHg (35-45)
--- NOTE | 2018-07-27 19:20 | NUR ---
PT HAS A SKIN TEAR WOUND ON RIGHT WRIST. WOUND WAS CLEANED WITH [employer]INTEGRITY WOUND CLEANSER AND MEPITEL ONE DRESSING WAS PLACED ALONG WITH NON-ADHERENT DRESSING OVER THE TOP.
--- NOTE | 2018-07-27 19:31 | NUR ---
SHIFT SUMMARY Hernandez catheter placed by SN Schneider as pt was agitated and stated he couldn't pee. Plan of care discussed with Dr Hooks at bedside. Orders given for IV haldol PRN at bedtime. New orders entered by provider around 1330. ABG drawn by RT Tom. Critical value received. RT called Dr Hooks with results. Dr Hooks stated she would enter new orders. This RN notified Dr Juarez of pulmonology consultation and provided ABG results. Dr Juarez in to see pt. Stated plan for CT head to rule out stroke, along with chest Xray. This RN placed call to Dr Hooks to request status change to ICU as pt requires SWW and BiPAP concurrently. Orders given; additionally, orders for SWW renewed. This evening Dr Juarez discussed results with this RN. Stated to keep pt on BiPAP and to call if pt becomes agaitated, as precedex may be necessary. Pt has been on BiPAP for entire shift. Attempted to place pt on NC. O2 titrated up to 6 LPM via NC, however pt continued to desaturate, reaching SpO2 in 60s. Pt awakens to movement and pain. Report given to oncoming RN, Vandana.
--- NOTE | 2018-07-27 21:12 | NUR ---
START OF SHIFT: REPORT FROM RODRIGO RN AND STUDENT RN. PT VERY SOLMULENT AND ONLY RESPONSIVE TO PAIN AT BEDSIDE REPORT. PT ON BIPAP 14/6 FiO2 35% SATS 93%, BP SLIGHTLY HTN (WILL MONITOR). DURING INITIAL ASSESSMENT PT TRIES TO OPEN EYES ON COMMAND BUT NOT FULLY OPENING, PUPILS PINPOINT, PT SEEMS TO GRASP ON COMMAND BUT ALSO HAS CONSTANT TWITCHING SO HARD NO KNOW FOR SURE. ABD DISTENDED BUT HAS BEEN PER DAY RN REPORT. ZENA TO RLA INTACT WITH NO REDNESS OR DRAINAGE NOTED. SEE ASSESSMENT CHART FOR FULL ASSESSMENT. WILL CONTINUE TO MONITOR.
--- NOTE | 2018-07-27 23:20 | NUR ---
PT AWAKENS: IV PLACED AT 2219 TO LEFT ARM. PT AWAKENED SLIGHTLY THEN. BIPAP OFF AT 2230 FOR ORAL CARE AND N/C 5L PLACED. PT AWAKENED MORE WITH SATS 100%. N/C REDUCED TO 3L. PT C/O PAIN AND ASKED REPEATEDLY, "HOW'D THIS HAPPEN". PT UPDATED AND INFORMED. PT TEACHING RE: RUPTURED APPENDIX AND REASON PLACED ON BPAP. PT FULLY AWAKE AND REQUESTED TO SPEAK WITH [id number] WHO IS NOW AT BEDSIDE. PT FULL A+O TALKING FULL SENTENCES. WILL CONTINUE TO MONITOR.
--- NOTE | 2018-07-28 00:05 | NUR ---
BIPAP BACK ON: PT BECAME SOB AFTER TALKING WITH STEP DAUGHTER (VERIFIED IS STEP FUAD AND NOT [id number]). PT ACTUALLY REQUESTED BIPAP. VSS. RESTRAINTS OFF. PT TOLERATING WELL.
[2018-07-28 03:31] LABS: BASOPHILS ABSOLUTE AUTO 0.02 K/mm3 (0.00-0.23); BASOPHILS PERCENT AUTO 0 % (0-2); EOSINOPHILS ABSOLUTE AUTO 0.21 K/mm3 (0.00-0.68); EOSINOPHILS PERCENT AUTO 2 % (0-6); Hematocrit 29.3 % (37.0-53.0); Hemoglobin 8.7 g/dL (13.5-17.5); IMMATURE GRAN ABSOLUTE AUTO 0.17 K/mm3 (0.00-0.10); IMMATURE GRAN PERCENT AUTO 2 % (0-1); LYMPHOCYTES ABSOLUTE AUTO 0.93 K/mm3 (0.84-5.20); LYMPHOCYTES PERCENT AUTO 9 % (21-46); MONOCYTES ABSOLUTE AUTO 0.91 K/mm3 (0.16-1.47); MONOCYTES PERCENT AUTO 9 % (4-13); Mean Corpuscular HGB Conc 29.7 g/dL (31.5-36.5); Mean Platelet Volume 11.3 fL (9.1-12.4); NEUTROPHILS ABSOLUTE AUTO 8.47 K/mm3 (1.96-9.15); NEUTROPHILS PERCENT AUTO 79 % (41-73); Platelet Count 230 K/mm3 (150-400); RDW Standard Deviation 46.5 fL (35.1-46.3); White Blood Cell Count 10.71 K/mm3 (4.00-11.30)
[2018-07-28 03:34] LABS: Mean Corpuscular Volume 101 fL (80-100)
[2018-07-28 03:47] LABS: Albumin, Blood 2.2 g/dL (3.4-5.0); Anion Gap 8 mmol/L (6-16); Blood Urea Nitrogen 16 mg/dL (8-24); CO2, Blood 32 mmol/L (21-32); Calcium, Blood 8.6 mg/dL (8.5-10.1); Chloride, Blood 108 mmol/L (98-108); Glomerular Filtration Rate 46 (60-); Glucose, Blood 85 mg/dL (70-99); Magnesium, Blood 2.3 mg/dL (1.6-2.4); Phosphorus, Blood 2.4 mg/dL (2.5-4.9); Potassium, Blood 3.6 mmol/L (3.5-5.5); Sodium, Blood 148 mmol/L (136-145)
--- NOTE | 2018-07-28 04:02 | NUR ---
PT AWAKENED REQUESTING WATER. BIPAP OFF. 3L N/C APPLIED. VSS. PT TOOK SIPS OF WATER. PT MEDICATED FOR PAIN. CALL LIGHT WITHIN REACH.
--- NOTE | 2018-07-28 05:31 | NUR ---
PT AWAKENS C/O PAIN 10/10 TO ABD AND BACK. PT MEDICATED WITH PERCOCET. WILL CONTINUE TO MONITOR.
--- NOTE | 2018-07-28 07:48 | NUR ---
BEGINNING OF SHIFT Assumed care at 0700. Report recieved from Vandana QUIROS. Pt on 3 LPM DC. Pt awake and talking to staff. Pt continuously asks for pain meds. Education provided on reason pt is in ICU and that pt did not really awaken during previous day shift. Pt unreceptive to education and becomes angry, stating "These meds don't do anything for my pain. They were giving me two of the percocet and those seemed to work pretty well", when tramadol was provided. Pt again educated that he was sent to ICU because he was unresponsive. Will continue to educate.
--- NOTE | 2018-07-28 10:40 | NUR ---
UPDATE Plan of care discussed with Dr Juarez. Provider states pt no longer needs ICU status. Pt having rust-colored bowel movements. This RN notified Dr Hooks. H&H reviewed and discussed with provider. Provider agrees surgical floor status is appopriate, without telemetry. Provider also states pt may begin eating meals.
--- NOTE | 2018-07-28 11:18 | NUR ---
FLUID RESTRICTION Discontined by Dr Juarez. Pt updated on plan of care.
--- NOTE | 2018-07-28 14:52 | NUR ---
CALL PLACED TO DR CANNON Results of sodium lab draw given to Dr Cannon
--- NOTE | 2018-07-28 16:44 | NUR ---
PAIN Pt reports 7/10 pain in right pectoral area. Pt attributes this pain to an encounter with security prior to transfer to ICU. Pt was combative prior to ICU transfer. Call placed to Dr Hooks to notify of the pt's pain. Provider gave telephone order for troponin to be added on to earlier lab draw. Pain meds given per orders.
--- NOTE | 2018-07-28 17:51 | NUR ---
SHIFT SUMMARY No acute changes since last note. Pt has been A&O x 2 for entire shift. Dyspnea with exertion, but otherwise tolerates activity well. Pt agreeable with wearing BiPAP and wore it during a 2 hour nap today. Pt verbalizes understanding of importance for wearing BiPAP. Bed in lowest position. Call light in reach. Pt denies need at this time. Will continue to closely montior until care handoff and bedside report with oncoming RN. Pt currently surgical floor status without continuous heart monitoring.
--- NOTE | 2018-07-28 18:02 | NUR ---
INTAKE AND OUTPUT Pt has tolerated meals well. No reports of abdominal pain, nausea, or vomiting. Pt has voided urine since removal of Hernandez catheter.
--- NOTE | 2018-07-28 19:41 | NUR ---
START OF SHIFT: REPORT FROM RODRIGO QUIROS AT CHANGE OF SHIFT. PT SITTING UP IN BED WATCHING TV. PT A+O-PLEASANT, COOPERATIVE, AND CONVERSING WELL. VSS. PT MAIN C/O IS PAIN AND HAVING NEW PAIN TODAY UNDER RIGHT [id number] AREA. PT TEACHING RE: THIS IS COMMON AFTER ABDOMINAL SURGERY AND USUALLY DISSIPATES OVER TIME. PT ASKED WHEN NEXT PAIN MEDICATION DUE AND WAS INFORMED. PT GIVEN TIME TO TALK AND EXPRESS SELF. PT TALKED ABOUT LATE SPOUSE AND HOW LIFE HAS CHANGED WITHOUT HER. PT TALKED ABOUT HIS DOG BUT KNOWS THAT HIS STEP-DAUGHTER IS TAKING CARE OF IT. PT VOICES CONCERNS ABOUT WHY HE GOT DISORIENTED AND HOW HE BEHAVED CAUSING HIM TO BE TRANSFERRED TO ICU. PT STATED THAT HE AND HIS STEP-DAUGHTER HAD TALKED ABOUT THIS ALSO. PT GIVEN OPPORTUNITY TO MOVE TO CHAIR AND TAKE A SPONGE BATH AND TO CHANGE GOWN. PT STATED, "NOT RIGHT NOW". PT STATED WILL LET RN KNOW WHEN HE'S READY. PT'S STEP-DAUGHTER TO UNIT AND GIVEN UPDATE. RT CRIS TO CONVERSATION AND WILL TRANSITION PT TO THE [facility] BIPAP FOR POSSIBLE TRANSFER TO MEDICAL FLOOR. WILL CONTINUE TO MONITOR. CALL LIGHT IN HAND. PT CONTINUING TO WATCH TV.
--- NOTE | 2018-07-28 23:11 | NUR ---
BIPAP: PT REQUESTED, SHORTLY AFTER RECEIVING SEROQUEL AND OTHER NIGHT MEDS, TO HAVE BIPAP PLACED FOR SLEEP. BIPAP SETTINGS 14/6 FiO2 30% TO KEEP SATS OVER 90%. PT SPOT CHECKED TWICE WITH 93% AND 95%. CALL LIGHT WITHIN REACH. PT PLEASANT AND COOPERATIVE EACH TIME RN AT BEDSIDE.
--- NOTE | 2018-07-29 02:02 | NUR ---
REPORT CALLED TO LEIGH QUIROS FOR PCU ROOM 1. ALL QUESTIONS ANSWERED. PT SITTING ON EDGE OF BED AFTER USING BSC. TOLERATING WELL WITH O2 SATS 93% 5L FOR ACTIVITY. WILL TRANSFER PT VIA W/C WITH O2.
[2018-07-29 04:27] LABS: BASOPHILS ABSOLUTE AUTO 0.02 K/mm3 (0.00-0.23); BASOPHILS PERCENT AUTO 0 % (0-2); EOSINOPHILS ABSOLUTE AUTO 0.26 K/mm3 (0.00-0.68); EOSINOPHILS PERCENT AUTO 3 % (0-6); Hematocrit 31.3 % (37.0-53.0); Hemoglobin 9.4 g/dL (13.5-17.5); IMMATURE GRAN ABSOLUTE AUTO 0.15 K/mm3 (0.00-0.10); IMMATURE GRAN PERCENT AUTO 2 % (0-1); LYMPHOCYTES ABSOLUTE AUTO 1.42 K/mm3 (0.84-5.20); LYMPHOCYTES PERCENT AUTO 14 % (21-46); MONOCYTES PERCENT AUTO 9 % (4-13); Mean Corpuscular HGB 30.7 pg (26.0-34.0); Mean Corpuscular Volume 102 fL (80-100); Mean Platelet Volume 11.3 fL (9.1-12.4); NEUTROPHILS ABSOLUTE AUTO 7.28 K/mm3 (1.96-9.15); NEUTROPHILS PERCENT AUTO 73 % (41-73); Platelet Count 281 K/mm3 (150-400); RDW Coefficient Variation 13.3 % (11.7-14.2); RDW Standard Deviation 48.1 fL (35.1-46.3); Red Blood Cell Count 3.06 M/mm3 (4.30-5.90); White Blood Cell Count 10.03 K/mm3 (4.00-11.30)
[2018-07-29 04:50] LABS: Alanine Aminotransfer (ALT/SGP 28 U/L (12-78); Albumin, Blood 2.4 g/dL (3.4-5.0); Albumin/Globulin Ratio 0.6 (0.8-1.8); Alk Phos 205 U/L (50-136); Anion Gap 4 mmol/L (6-16); Aspartate Aminotrans (AST/SGOT 19 U/L (12-37); Bilirubin, Total 0.4 mg/dL (0.1-1.0); Blood Urea Nitrogen 14 mg/dL (8-24); Bun/Creatinine Ratio 8.5 (12.0-20.0); CO2, Blood 34 mmol/L (21-32); Calcium, Blood 8.7 mg/dL (8.5-10.1); Chloride, Blood 106 mmol/L (98-108); Creatinine, Blood 1.65 mg/dL (0.60-1.20); Glomerular Filtration Rate 44 (60-); Glucose, Blood 108 mg/dL (70-99); Magnesium, Blood 2.3 mg/dL (1.6-2.4); Phosphorus, Blood 2.3 mg/dL (2.5-4.9); Potassium, Blood 3.3 mmol/L (3.5-5.5); Sodium, Blood 144 mmol/L (136-145); Total Protein, Blood 6.4 g/dL (6.4-8.2)
--- NOTE | 2018-07-29 06:22 | NUR ---
SHIFT SUMMARY: PATIENT ARRIVED TO [facility] AT 0222 VIA WHEELCHAIR FROM ICU. PATIENT ABLE TO PIVOT TRANSFER TO BED WITH 1 PERSON ASSIST, PATIENT SHAKEY AND WEAK. VSS, PATIENT FORGETFULL AND REPEATING SAME QUESTION. PATIENT C/O PAIN AND RECIEVED PAIN MEDICATION PER MD ORDERS, PATIENT SLEEPING WITH BIPAP ON, VSS, BED LOW AND LOCKED WITH EXIT ALARM ON.
--- NOTE | 2018-07-29 17:55 | NUR ---
SHIFT SUMMARY: PT IS ALERT AND ORIENTED TO PERSON, PLACE AND TIME. PT WAS ON BIPAP WHILE NAPPING DURING THE DAY. HE IS CURRENTLY ON 2L OF OXYGEN VIA NC. PT BECOMES SOB WITH AMBULATION, HOWEVER, HE IS ABLE TO TOLERATE ACTIVITIES WELL. PT HAS BEEN UP AT THE SIDE OF THE BED FOR EVERY MEAL. HE CALLS APPROPRIATELY BEFORE ATTEMPTING TO GET OUT OF BED. PT USES THE FWW WHEN AMBULATING AND IS ABLE TO FOLLOW DIRECTIONS.HE IS COOPERATIVE WITH ALL CARE. SPOKE TO ARE PLANNING TO DISCHARGE TO SNF, [facility] FOR BED.
[2018-07-30 05:37] LABS: Hematocrit 30.8 % (37.0-53.0); Hemoglobin 9.1 g/dL (13.5-17.5)
[2018-07-30 06:02] LABS: Albumin, Blood 2.4 g/dL (3.4-5.0); Anion Gap 3 mmol/L (6-16); Blood Urea Nitrogen 13 mg/dL (8-24); Bun/Creatinine Ratio 7.6 (12.0-20.0); CO2, Blood 35 mmol/L (21-32); Calcium, Blood 8.7 mg/dL (8.5-10.1); Chloride, Blood 108 mmol/L (98-108); Glomerular Filtration Rate 43 (60-); Glucose, Blood 100 mg/dL (70-99); Magnesium, Blood 2.2 mg/dL (1.6-2.4); Phosphorus, Blood 3.1 mg/dL (2.5-4.9); Potassium, Blood 3.9 mmol/L (3.5-5.5); Sodium, Blood 146 mmol/L (136-145)
--- NOTE | 2018-07-30 06:35 | NUR ---
SHIFT SUMMARY PT IS A 68 Y/O MALE, WHO WAS ADMITTED FOR APPENDICITIS. HE WAS TRANSFERED FROM PCU DURING THE NIGHT, ARRIVING ON THE FLOOR AT 2050. HE IS A&O X 3. THE PT REPORTED ABDOMINAL AND R SHOULDER/CHEST PAIN, FOR WHICH HE WAS MEDICATED WITH PRN OXYCODONE AND FENTANYL, WHICH WORKED WELL TO CONTROL HIS PAIN. HE DENIED ANY SOB OR NAUSEA. PT WAS ON CONTINUOUS 3L OF O2, AND ON A BIPAP DURING THE NIGHT WITH AN O2 BLEED OF 4L. VITALS REMAINED STABLE SINCE ARRIVAL. NO OTHER ACUTE CHANGES IN PT CONDITION NOTED. WILL CONTINUE TO MONITOR AND TREAT PER EMAR UNTIL HAND OFF TO DAY SHIFT.
--- NOTE | 2018-07-30 17:05 | NUR ---
SHIFT SUMMARY PATIENT HAS BEEN PLEASANT ALL DAY. NO ACUTE CONCERNS ACCORDING TO THE PATIENT. AN ADVANCED DIRECTIVE HAS BEEN FILLED OUT AT THIS TIME WITH THE PATIENT'S DAUGHTER. WILL ASSESS FOR ANY CHANGES.
[2018-07-31 06:01] LABS: Hematocrit 35.1 % (37.0-53.0); Hemoglobin 10.3 g/dL (13.5-17.5)
[2018-07-31 06:24] LABS: Albumin, Blood 2.6 g/dL (3.4-5.0); Anion Gap 4 mmol/L (6-16); Blood Urea Nitrogen 15 mg/dL (8-24); Bun/Creatinine Ratio 8.5 (12.0-20.0); CO2, Blood 32 mmol/L (21-32); Calcium, Blood 9.1 mg/dL (8.5-10.1); Chloride, Blood 107 mmol/L (98-108); Creatinine, Blood 1.77 mg/dL (0.60-1.20); Glomerular Filtration Rate 41 (60-); Glucose, Blood 112 mg/dL (70-99); Magnesium, Blood 2.3 mg/dL (1.6-2.4); Phosphorus, Blood 2.7 mg/dL (2.5-4.9); Potassium, Blood 4.6 mmol/L (3.5-5.5); Sodium, Blood 143 mmol/L (136-145)
--- NOTE | 2018-07-31 07:09 | NUR ---
alert and orintated, call light in reach but would frequently loose it and require assistance to find it, saline locked, walking rounds completed with day staff, woke up and was sure he was being ignored, stated he had been calling out and had been ignored, apologized later, very pleasent to work with
--- NOTE | 2018-07-31 10:27 | NUR ---
REMOVED PATIENT'S ZEAN. HE TOLERATED IT WELL. STERI STRIPS APPLIED.
--- NOTE | 2018-07-31 17:42 | NUR ---
SHIFT SUMMARY PATIENT PLEASANT. ALERT AND MOSTLY ORIENTED. INDEPENDENTLY MOVES AROUND IN THE ROOM. CALLS APPROPRIATELY. SWALLOWS PILLS WHOLE WITH WATER. NO ACUTE CONCERNS PER PATIENT.
[2018-08-01 05:11] LABS: Hematocrit 34.9 % (37.0-53.0); Hemoglobin 10.1 g/dL (13.5-17.5)
--- NOTE | 2018-08-01 05:18 | NUR ---
SHIFT SUMMARY PT IS A 68 Y/O MALE, ADMITTED FOR PERFORATED APPENDICITIS. HE HAS A SURGICAL SITE ON HIS RIGHT LOWER ABDOMEN THAT IS CURRENTLY OPEN TO AIR AND HELD WITH STERI STRIPS. HE IS A&O X 3, AND ABLE TO AMBULATE INDEPENDENTLY TO THE [facility]. THE PT REPORTED PAIN IN HIS R CHEST/SHOULDER AND HIS ABDOMEN, FOR WHICH HE WAS MEDICATED X 3 WITH BOTH PRN FENTANYL AND PERCOCET. HE DENIED ANY NAUSEA OR SOB. PT WAS ON CONTINUOUS OXYGEN AT 3L VIA NC. VITALS REMAINED STABLE. NO OTHER ACUTE CHANGES IN PT CONDITION NOTED. WILL CONTINUE TO MONITOR AND TREAT PER EMAR.
[2018-08-01 05:38] LABS: Magnesium, Blood 2.3 mg/dL (1.6-2.4)
[2018-08-01 05:40] LABS: Albumin, Blood 2.7 g/dL (3.4-5.0); Anion Gap 5 mmol/L (6-16); Blood Urea Nitrogen 17 mg/dL (8-24); Bun/Creatinine Ratio 10.2 (12.0-20.0); CO2, Blood 31 mmol/L (21-32); Calcium, Blood 9.1 mg/dL (8.5-10.1); Chloride, Blood 106 mmol/L (98-108); Creatinine, Blood 1.67 mg/dL (0.60-1.20); Glomerular Filtration Rate 44 (60-); Glucose, Blood 103 mg/dL (70-99); Phosphorus, Blood 3.3 mg/dL (2.5-4.9); Potassium, Blood 4.8 mmol/L (3.5-5.5); Sodium, Blood 142 mmol/L (136-145)
--- NOTE | 2018-08-01 08:08 | NUR ---
PT HAS RETURNED FROM IMAGING. HE TRANSPORTED VIA W/C WITH 2L O2 VIA NC. HE WAS A SBA.
[2018-08-01] MEDS ORDERED: Feverall650 MG PR (11:07)
[2018-08-01] MEDS ORDERED: ENOX30I SC (11:08)
[2018-08-01] MEDS ORDERED: ALBU3IS INH (11:08)
[2018-08-01] MEDS ORDERED: Nystop60 GM TOP (11:08)
[2018-08-01] MEDS ORDERED: PANT40 PO (11:09)
[2018-08-01] MEDS ORDERED: Percocet 10-321 EACH PO (11:10)
[2018-08-01] MEDS ORDERED: QUET25 PO (11:10)
--- NOTE | 2018-08-01 16:52 | NUR ---
DISCHARGE SUMMARY: REPORT CALLED TO RHIANNA OREILLY AT [facility]. PT IS RESISTANT TO GO TO . HE CONSTANTLY STS HE WANTS TO STAY HERE. EDUCATED PT ON IMPORTANCE OF SNF. HE WAS AGREEABLE TO SNF FOR A SHORT TIME. RX FOR PAIN MEDICATION INCLUDED IN D/C PACK TO SNF. BELONGINGS SENT WITH PT VIA [facility]. TRANSPORTED VIA W/C W/2L O2. NO ACUTE CHANGES NOTED T/O SHIFT.
== END 2018-08-01 16:44 | DRG 853 ==
LOC: ER 10:52 → PCU 16:26 → ICUW 16:26 → PCU 17:38 → ICUE 07-18 14:17 → ICUW 07-18 15:34 → SURS 07-20 14:14 → ICUW 07-27 03:55 → PCU 07-29 02:20 → MEDS 07-29 20:51
PROVIDERS: Family Medicine; Internal Medicine; Internal Medicine Critical Care Medicine; Internal Medicine Nephrology; Physician Assistant; Student in an Organized Health Care Education/Training Program; Surgery; ADMIT Internal Medicine
PROC: 0DTH0ZZ Resection of Cecum, Open Approach (ICD-10-PCS; 2018-07-18)
PROC: 0DNH0ZZ Release Cecum, Open Approach (ICD-10-PCS; 2018-07-18)
PROC: 5A1935Z Respiratory Ventilation, Less than 24 Consecutive Hours (ICD-10-PCS; 2018-07-18)
PROC: 0BH17EZ Insertion of Endotracheal Airway into Trachea, Via Natural or Artificial Opening (ICD-10-PCS; 2018-07-18)
PROC: 0DTJ0ZZ Resection of Appendix, Open Approach (ICD-10-PCS; principal; 2018-07-18 12:50)
DX: A41.9 Sepsis, unspecified organism (principal); J95.2 Acute pulmonary insufficiency following nonthoracic surgery; G92 Toxic encephalopathy; K35.33 Acute appendicitis with perforation, localized peritonitis, and gangrene, with abscess; J44.1 Chronic obstructive pulmonary disease with (acute) exacerbation; N17.9 Acute kidney failure, unspecified; D62 Acute posthemorrhagic anemia; E87.0 Hyperosmolality and hypernatremia; F17.210 Nicotine dependence, cigarettes, uncomplicated; Z99.81 Dependence on supplemental oxygen; G47.33 Obstructive sleep apnea (adult) (pediatric); F03.90 Unspecified dementia, unspecified severity, without behavioral disturbance, psychotic disturbance, mood disturbance, and anxiety; M54.5 Low back pain; I12.9 Hypertensive chronic kidney disease with stage 1 through stage 4 chronic kidney disease, or unspecified chronic kidney disease; I71.4 Abdominal aortic aneurysm, without rupture; M48.56XS Collapsed vertebra, not elsewhere classified, lumbar region, sequela of fracture; Z79.82 Long term (current) use of aspirin; E83.39 Other disorders of phosphorus metabolism; N18.3 Chronic kidney disease, stage 3 (moderate)
CPT/HCPCS: 31500; 31720; 36415; 36600; 51702; 51703; 70450; 71045; 71046; 74176; 76705; 80048; 80053; 80069; 81001; 81050; 82088; 82140; 82533; 82570; 82803; 82947; 83690; 83735; 83835; 83880; 84100; 84145; 84244; 84295; 84484; 84585; 85014; 85018; 85025; 85610; 85730; 87086; 88307; 90686; 93005; 93010; 94002; 94003; 94640; 94644; 94660; 94667; 94760; 94762; 96361; 96365; 96375; 97110; 97162; 97166; 97530; 97535; 99285-25; A9270-GY; C9113; J0360; J0881; J1170; J1650; J1940; J2060; J2250; J2310; J2405; J2543; J2704; J2920; J2930; J3010; J3411; J7030; J7042; J7050; J7060; J7070; J7120

== ENCOUNTER → 2018-10-03 | Outpatient (CLI) | payer MEDICARE, OTHER ==
[~2018-10-03] MED LIST changes: +ACET325 PO; +ALBU2.5V5 INH; +ALBU3IS INH; +BISA10S PR; +Bumetanide1 MG PO; +ENOX30I SC; +Feverall650 MG PR; +META800 PO; +METO25ER PO; +METOPROLOL SUCC25 MG PO; +Nystop60 GM TOP; +OMEPRAZOLE20 MG PO; +ONDA4 PO; +ONDA4ODT MM; +OXYC10TA19 PO; +QUET25 PO; +SERT50 PO; +SUBOXONE 4 MG-1 EACH SL; +TIZA4 PO; +Tizanidine HCl2 MG PO
[2018-10-03 12:51] LABS: Bilirubin, Urine Neg (Neg); Blood, Urine 1+ (Neg); Glucose Qualitative, Urine Neg (Neg); Ketones, Urine 3+ (Neg); Leukocyte Esterase, Urine 3+ (Neg); Nitrite, Urine Neg (Neg); Protein, Urine 2+ (Neg); Urobilinogen, Urine NORM (Normal)
[2018-10-03 12:58] LABS: Appearance, Urine Hazy (Clear); Bacteria Rare /hpf; Color, Urine Yellow (P-Yellow); Squamous Epithelial Cells Not Seen /hpf (Few); White Blood Cells, Urine 25-50 /hpf (0-5)
== END | disposition home or self-care (01) ==
LOC: LAB UVN 12:34 → LAB RH 12:34 → EDSTATUS 14:37
PROVIDERS: Internal Medicine
DX: N39.0 Urinary tract infection, site not specified (principal)
CPT/HCPCS: 81001; 87077; 87086; 87186

== ENCOUNTER 2018-10-30 18:32 | Inpatient (IN) | payer MEDICARE, OTHER ==
[~2018-10-30] VITALS: Ht 175.3 cm; Wt 62.9 kg
[~2018-10-30 18:32] MED LIST changes: -ACET325 PO; -ALBU2.5V5 INH; -BISA10S PR; -METO25ER PO; -OMEPRAZOLE20 MG PO; -ONDA4 PO; -OXYC10TA19 PO; -SUBOXONE 4 MG-1 EACH SL; -TIZA4 PO; -Tizanidine HCl2 MG PO
[2018-10-30 19:27] LABS: BASOPHILS ABSOLUTE AUTO 0.03 K/mm3 (0.00-0.23); BASOPHILS PERCENT AUTO 0 % (0-2); Hematocrit 45.2 % (37.0-53.0); Hemoglobin 13.6 g/dL (13.5-17.5); LYMPHOCYTES ABSOLUTE AUTO 0.74 K/mm3 (0.84-5.20); LYMPHOCYTES PERCENT AUTO 6 % (21-46); MONOCYTES ABSOLUTE AUTO 1.18 K/mm3 (0.16-1.47); MONOCYTES PERCENT AUTO 9 % (4-13); Mean Corpuscular HGB 29.6 pg (26.0-34.0); Mean Corpuscular HGB Conc 30.1 g/dL (31.5-36.5); NRBC ABSOLUTE 0.02 K/mm3 (0.00-0.02); NRBC Auto 0.2 /100 WBC (0.0-0.2); Platelet Count 182 K/mm3 (150-400); RDW Coefficient Variation 12.8 % (11.7-14.2); RDW Standard Deviation 45.9 fL (35.1-46.3); White Blood Cell Count 13.11 K/mm3 (4.00-11.30)
[2018-10-30 19:36] LABS: EOSINOPHILS ABSOLUTE AUTO 0.15 K/mm3 (0.00-0.68); EOSINOPHILS PERCENT AUTO 1 % (0-6); IMMATURE GRAN ABSOLUTE AUTO 0.18 K/mm3 (0.00-0.10); IMMATURE GRAN PERCENT AUTO 1 % (0-1); Mean Corpuscular Volume 98 fL (80-100); Mean Platelet Volume 13.2 fL (9.1-12.4); NEUTROPHILS ABSOLUTE AUTO 10.83 K/mm3 (1.96-9.15); NEUTROPHILS PERCENT AUTO 83 % (41-73)
[2018-10-30 19:44] LABS: Albumin, Blood 2.8 g/dL (3.4-5.0); Albumin/Globulin Ratio 0.6 (0.8-1.8); Bilirubin, Total 0.4 mg/dL (0.1-1.0); Bun/Creatinine Ratio 28.8 (12.0-20.0); Calcium, Blood 9.9 mg/dL (8.5-10.1); Creatinine, Blood 2.36 mg/dL (0.60-1.20); Globulin, Blood 4.5 g/dL (2.2-4.0); Total Protein, Blood 7.3 g/dL (6.4-8.2)
[2018-10-30] MEDS ORDERED: Lisinopril2.5 MG PO (21:54)
--- NOTE | 2018-10-30 23:30 | NUR ---
ADMIT PT ARRIVES TO PCU 8 FROM ER VIA GURNEY AND IS TRANSFERRED TO HOSPITAL BED VIA SLIDER SHEET. PT CURRENTLY ORIENTED TO SELF AND TOWN ONLY, DISORIENTED TO SURROUNDINGS, DATE/TIME, EVENT, AND SOMEWHAT FOLLOWING DIRECTIONS. PT IS IRRITABLE AND HAVING INAPPROPRIATE SPEECH- UNABLE TO ANSWER QUESTIONS APPROPRIATELY, SUCH RESPONDING "BILL" WHEN ASKED . ABLE TO ANSWER QUESTIONS WHEN BROKEN UP AND REPEATED MULTIPLE TIMES, BUT GROWS INCREASINGLY IRRITABLE WHEN ATTEMPTING TO PROVIDE CARE AND PERFORM ASSESSMENT. SKIN NOTED TO BE ECCHYMOTIC AND FRAGILE. PT IS VERY PAINFUL WHEN MOVED OR TOUCHED IN ANY CAPACITY, WILL MEDICATE FOR PAIN. PT IS POOR HISTORIAN OF MEDICAL HISTORY AND UNABLE TO PROVIDE ACCURATE INFORMATION. MEDICAL POA IS DAUGHTER, QING, PHONE NUMBER IN CHART. PT RE-ORIENTED TO EVENT AND SURROUNDINGS, ALSO ORIENTED TO ROOM AND CALL LIGHT SYSTEM. ENCOURAGED TO CALL FOR ASSISTANCE WITH CARE. WILL CONTINUE WITH ADMISSION AND ASSESSMENT. BED IN LOW POSITION, CALL LIGHT IN REACH. BED ALARM SET FOR SAFETY.
[2018-10-31 02:04] LABS: BASOPHILS ABSOLUTE AUTO 0.05 K/mm3 (0.00-0.23); BASOPHILS PERCENT AUTO 1 % (0-2); Hematocrit 41.4 % (37.0-53.0); Hemoglobin 12.2 g/dL (13.5-17.5); LYMPHOCYTES ABSOLUTE AUTO 0.78 K/mm3 (0.84-5.20); LYMPHOCYTES PERCENT AUTO 7 % (21-46); MONOCYTES PERCENT AUTO 10 % (4-13); Mean Corpuscular HGB 29.6 pg (26.0-34.0); Mean Corpuscular HGB Conc 29.5 g/dL (31.5-36.5); Platelet Count 141 K/mm3 (150-400); RDW Coefficient Variation 12.9 % (11.7-14.2); RDW Standard Deviation 47.8 fL (35.1-46.3); Red Blood Cell Count 4.12 M/mm3 (4.30-5.90); White Blood Cell Count 10.86 K/mm3 (4.00-11.30)
[2018-10-31 02:06] LABS: EOSINOPHILS ABSOLUTE AUTO 0.21 K/mm3 (0.00-0.68); EOSINOPHILS PERCENT AUTO 2 % (0-6); IMMATURE GRAN ABSOLUTE AUTO 0.09 K/mm3 (0.00-0.10); IMMATURE GRAN PERCENT AUTO 1 % (0-1); Mean Corpuscular Volume 101 fL (80-100); NEUTROPHILS ABSOLUTE AUTO 8.63 K/mm3 (1.96-9.15); NEUTROPHILS PERCENT AUTO 80 % (41-73)
[2018-10-31 02:22] LABS: Bun/Creatinine Ratio 26.4 (12.0-20.0); Calcium, Blood 8.9 mg/dL (8.5-10.1); Creatinine, Blood 2.27 mg/dL (0.60-1.20)
--- NOTE | 2018-10-31 02:30 | NUR ---
SVT PT WITH TWO RUNS OF SVT NOTED THIS AM @ 0209 AND 0226. PT IS ASYMPTOMATIC WITH THESE AND CONTINUES TO REST QUIETLY IN BED. RHYTHM STRIPS IN CHART. WILL CONTINUE TO MONITOR.
[2018-10-31] MEDS ORDERED: SUBOXONE 4 MG-1 EACH SL (02:49)
[2018-10-31] MEDS ORDERED: ONDA4 PO (02:51)
--- NOTE | 2018-10-31 03:30 | NUR ---
CARDIAC CONVERSION/PROVIDER CONTACTED PT WITH RHYTHM CONVERSION TO ATRIAL FIBRILLATION WITH A RATE IN THE 160'S PER TELEMETRY. NO REPORTED CHANGE IN PATIENT CONDITION AT THIS TIME. DR LEVY CONTACTED AND ORDERS INPUT FOR CARDIZEM DRIP TO BE TITRATED PER PROTOCOL WELL ECHOCARDIAGRAM IN THE AM. WILL INITIATE ORDERS WHEN MEDS RECEIVED.
--- NOTE | 2018-10-31 04:30 | NUR ---
CARDIAC CONVERSION PT CONVERTED TO NORMAL SINUS RHYTHM. CARDIZEM DRIP PLACED ON STANDBY AT THIS TIME. WILL CONTINUE TO MONITOR CLOSELY.
[2018-10-31 04:58] LABS: Adenovirus F 40/41 Not Detected (NOT DETECT); Campylobacter Sp Not Detected (NOT DETECT); Cryptosporidium Not Detected (NOT DETECT); Cyclospora Cayetanensis Not Detected (NOT DETECT); E. Coli O157 Not Detected (NOT DETECT); Entamoeba Histolytica Not Detected (NOT DETECT); Enteroaggregative E. coli-EAEC Not Detected (NOT DETECT); Enteropathogenic E. coli-EPEC Not Detected (NOT DETECT); Enterotoxigenic E. coli-ETEC Not Detected (NOT DETECT); Giardia Lamblia Not Detected (NOT DETECT); Plesiomonas Shigelloides Not Detected (NOT DETECT); Salmonella Sp Not Detected (NOT DETECT); Shiga Toxin-prod E. coli-STEC Not Detected (NOT DETECT); Shigella/Enteroin E. coli-EIEC Not Detected (NOT DETECT); Vibrio Cholerae Not Detected (NOT DETECT); Vibrio Sp Not Detected (NOT DETECT); Yersinia Enterocolitica Not Detected (NOT DETECT)
[2018-10-31 04:59] LABS: Astrovirus Not Detected (NOT DETECT); Norovirus GI/GII Not Detected (NOT DETECT); Rotavirus A Not Detected (NOT DETECT); Sapovirus Not Detected (NOT DETECT)
--- NOTE | 2018-10-31 05:35 | NUR ---
SHIFT SUMMARY PT HAS REMAINED ALERT AND ORIENTED TO SELF THROUHGOUT THE SHIFT. VSS. PT HAS BEEN MINIMALLY COOPERATIVE WITH CARE AND GROWS INCREASINGLY IRRITABLE WHEN CARE IS ATTEMPTED. PT HAS SWUNG AT STAFF WITH BALLED UP FISTS WITHOUT MAKING PHYSICAL CONTACT AND YELLED AT STAFF MULTIPLE TIMES THROUGHOUT THE NIGHT. PT IS REFUSING TURNING AND DIFFICULT TO CONVINCE TO LET US CHANGE HIS ATTENDS. PT YELLS "NO" WHEN STAFF ENTERS ROOM AND WAKES HIM TO PROVIDE ANY CARE OR WHEN HE IS AWAKENED BY STAFF ENTERING ROOM FOR NURSE ROUNDING. HAS REMAINED IN NORMAL SINUS RHYTHM SINCE CONVERSION @ 0422 THIS AM. CARDIZEM DRIP REMAINS IN ROOM, BUT IS CURRENTLY ON STANDBY. O2 SATS HAVE REMAINED >90% ON 2L VIA NASAL CANNULA. NO OTHER CHANGES FROM INITIAL ASSESSMENT. WILL CONTINUE TO MONITOR AND REPORT TO ONCOMING SHIFT RN. BED IN LOW POSITION, CALL LIGHT IN REACH. BED ALARM SET FOR SAFETY.
--- NOTE | 2018-10-31 07:42 | NUR ---
PCU DAYSHIFT ASSUMED CARE OF PT APPROX. 0700. PT ALERT TO SELF. WHEN INQUIRING ABOUT DATE, TIME AND OR SURROUNDING PT UNABLE TO GIVE APPRORIATE ANSWER. PT EITHER ANSWERED WITH HIS NAME OR DID NOT ANSWER AT ALL. PT LETHARGIC THIS MORNING BUT ARROUASABLE. PT DID NOT WANT TO FOLLOW DIRECTIONS WHEN GIVEN. RE ORIENTED PT NEEDED. BED IN LOW PSOITION CALL LIGHT IN REACH AND PT DENIES ANY NEEDS.
--- NOTE | 2018-10-31 10:02 | NUR ---
Echocardiogram completed.
[2018-10-31 11:26] LABS: International Normalized Ratio 1.04
[2018-10-31 11:29] LABS: Bun/Creatinine Ratio 24.5 (12.0-20.0); Calcium, Blood 8.7 mg/dL (8.5-10.1); Creatinine, Blood 2.16 mg/dL (0.60-1.20); Potassium, Blood 2.9 mmol/L (3.5-5.5)
--- NOTE | 2018-10-31 13:49 | NUR ---
NOTE FAMILY AT BEDSIDE THIS MORNING AND WAS ABLE TO SPEAK WITH PHYSICIAN THIS MORNING. CODE STATUS WAS CLARIFIED AND UPDATED. PT COORPERATIVE AND FOLLOWED DIRECTIONS WITH FAMILY HERE. PT CALM AND WAS WILLING LISTEN TO STAFF NEEDED. FAMILY LATER LEFT. PT HAD INCREASED AGGITATION AFTER THIS. PT FOLLOWS DIRECTIONS ON OCCASION. PT IRRITABLE AND RUDE WITH STAFF INTERMITENTLY. PT HOLLERING OUT INTERMITENTLY. REORITENED PT NEEDED. UTILIZED RELAXATION TECHNIQUES AND REASSURED PT NEEDED. EDUCATED PT ON USING CALL LIGHT NEEDDED. PT IN BED, BED IN LOW POSITION, CALL LIGHT IN REACH. WILL CONTINUE TO MONITOR.
[2018-10-31 16:37] LABS: Bun/Creatinine Ratio 26.7 (12.0-20.0); Calcium, Blood 8.6 mg/dL (8.5-10.1); Creatinine, Blood 1.95 mg/dL (0.60-1.20); Potassium, Blood 3.2 mmol/L (3.5-5.5)
--- NOTE | 2018-10-31 18:23 | NUR ---
SHIFT SUMMARY PT MENTATION REMAINS UNCHANGED. PT HAD INCREASED AGGITATION AT TIMES. REORIENTED NEEDED. UTILIZED RELAXATION TECHNIQUES AT NEEDED. OFTEN TIMES PT DIDNT FOLLOW DIRECTIONS, ALTHOUGH OTHER TIMES PT WAS WILLING TO LISTEN AND FOLLOW DIRECTIONS FROM STAFF. ENCOURGAED PT TO USE URINAL. STAFF MEMEBERS WENT INTO ROOM AND HELD URNIAL IN PLACE AND ENCOURAGED PT TO PEE. THIS WAS SUCCESSFUL ON OCCASION. PT ATTEMPTED TO GET OUT OF BED A COUPLE OF TIMES TODAY. REORIRENT AND REASSURED PT AND PLACED PT BACK IN BED. PT CURRENLTY IN BED RESTING. BED IN LOW POSITION, BED ALARM ON, CALL LIGHT IN REACH AND PT DENIES ANY NEEDS AT THIS TIME. WILL CONTINUE TO MONITOR UNTIL HANDOFF TO NIGHTSHIFT RN.
[2018-10-31 18:42] LABS: Source, Urine Clean Catch
[2018-10-31 18:50] LABS: Bilirubin, Urine Neg (Neg); Blood, Urine Neg (Neg); Glucose Qualitative, Urine Neg (Neg); Ketones, Urine Neg (Neg); Leukocyte Esterase, Urine 3+ (Neg); Nitrite, Urine Neg (Neg); Protein, Urine 2+ (Neg); Urobilinogen, Urine NORM (Normal)
[2018-10-31 19:00] LABS: Appearance, Urine Clear (Clear); Color, Urine Yellow (P-Yellow)
[2018-10-31 19:01] LABS: Bacteria Mod /hpf; Red Blood Cells, Urine 0-2 /hpf (0-2); Squamous Epithelial Cells Not Seen /hpf (Few)
--- NOTE | 2018-10-31 20:45 | NUR ---
ASSESSMENT AND REFUSAL OF CARE PT IS CURRENTLY ALERT AND ORIENTED TO SELF ONLY. PT IS VERY MINIMALLY COOPERATIVE WITH CARE WHEN ATTEMPTING TO TALK HIM THROUGH ASSESSMENT PROCESS AND REORIENT TO PLACE/TIME. ATTEMPTED USE OF DISTRACTION WHILE ASSESSING PATIENT AND OBTAINING VS, BUT WAS PUSHED AWAY AND HIT MULTIPLE TIMES. PT REFUSING CARE FROM THIS RN AND YELLING "HELP" OUT INTO MOMIN WELL REPEATEDLY TELLING THIS RN TO LEAVE. PT CONTINUES TO CURSE AND REFUSE MEDICATIONS, TURNING, CHANGING, AND CARE OF PATIENT IN ANY WAY AFTER VITAL SIGNS OBTAINED AND PARTIAL ASSESSMENT COMPLETED. SECONDARY RN TO ROOM IN ATTEMPT TO ASSIST WITH CARE OF PATIENT. PATIENT CONTINUED TO REFUSE MOST CARE, WAS WILLING TO TAKE ONE MEDICATION FROM SECONDARY RN. WILL CONTINUE TO MONITOR AND PROVIDE CARE ABLE.
--- NOTE | 2018-10-31 21:19 | NUR ---
PT REFUSING CARE PT ALERT, REFUSING CARE. THIS NURSE IN TO ASSIST PRIMARY CARE NURSE W/ MEDICATION PASS AND IV CARE. CURRENT IV INFILTRATION W/ PT REFUSAL TO REMOVE IV AND REFUSAL TO START NEW IV. 3RD NURSE IN ROOM TO ATTEMPT IV REMOVAL AND IV INSERTION W/ PT REFUSAL AGAIN.
[2018-11-01 04:19] LABS: BASOPHILS ABSOLUTE AUTO 0.02 K/mm3 (0.00-0.23); BASOPHILS PERCENT AUTO 0 % (0-2); EOSINOPHILS ABSOLUTE AUTO 0.61 K/mm3 (0.00-0.68); EOSINOPHILS PERCENT AUTO 6 % (0-6); Hematocrit 38.9 % (37.0-53.0); Hemoglobin 11.8 g/dL (13.5-17.5); IMMATURE GRAN ABSOLUTE AUTO 0.11 K/mm3 (0.00-0.10); IMMATURE GRAN PERCENT AUTO 1 % (0-1); LYMPHOCYTES ABSOLUTE AUTO 1.26 K/mm3 (0.84-5.20); LYMPHOCYTES PERCENT AUTO 13 % (21-46); MONOCYTES PERCENT AUTO 13 % (4-13); Mean Corpuscular HGB Conc 30.3 g/dL (31.5-36.5); Mean Corpuscular Volume 96 fL (80-100); NEUTROPHILS ABSOLUTE AUTO 6.34 K/mm3 (1.96-9.15); NEUTROPHILS PERCENT AUTO 66 % (41-73); Platelet Count 146 K/mm3 (150-400); RDW Coefficient Variation 12.9 % (11.7-14.2); RDW Standard Deviation 45.1 fL (35.1-46.3); Red Blood Cell Count 4.07 M/mm3 (4.30-5.90); White Blood Cell Count 9.54 K/mm3 (4.00-11.30)
[2018-11-01 04:40] LABS: Albumin, Blood 2.2 g/dL (3.4-5.0); Albumin/Globulin Ratio 0.6 (0.8-1.8); Bilirubin, Total 0.3 mg/dL (0.1-1.0); Bun/Creatinine Ratio 23.4 (12.0-20.0); Calcium, Blood 8.6 mg/dL (8.5-10.1); Creatinine, Blood 1.88 mg/dL (0.60-1.20); Globulin, Blood 3.7 g/dL (2.2-4.0); Phosphorus, Blood 1.5 mg/dL (2.5-4.9); Potassium, Blood 3.3 mmol/L (3.5-5.5); Total Protein, Blood 5.9 g/dL (6.4-8.2)
--- NOTE | 2018-11-01 05:47 | NUR ---
SHIFT SUMMARY PT HAS REMAINED ALERT AND ORIENTED TO SELF ONLY THROUHGOUT THE SHIFT, DESPITE MULTIPLE ATTEMPTS AT REORIENTATION. PT CONTINUES TO REFUSE ALL CARE, WITH ACCEPTION OF BRIEF COOPERATION WITH NEW IV START EARLY THIS AM - PT STILL REFUSING REMOVAL OF OLD IV SITE. PT CONTINUES TO REFUSE TO LET STAFF TOUCH HIM, DESPITE CALLING OUT FOR HELP INTO THE HALLWAY. WHEN ENTERING THE ROOM AND ASKING PT WHAT HE NEEDS, HE YELLS AT STAFF TO LEAVE THE ROOM AND NOT TO TOUCH HIM. MULTIPLE ATTEMPTS MADE TO PROVIDE CARE BY ALL STAFF MEMBERS ON UNIT WITHOUT SUCCESS. VITAL SIGNS THAT HAVE BEEN TAKEN ARE STABLE. PT REPORTING PAIN ONE TIME THROUGHOUT THE NIGHT, BUT WHEN ATTEMPTS WHERE MADE AT PROVIDING ORDERED MEDICATION, PT REFUSED NEW IV PLACEMENT TO ADMINISTER- PAIN REASSESSED WHEN NEW IV PLACED AND PT REPORTED THAT HE DID NOT WANT MEDS. NO OTHER CHANGES NOTED FROM INITIAL ASSESSMENT. WILL CONTINUE TO MONITOR AND REPORT TO ONCOMING SHIFT RN. BED IN LOW POSITION, CALL LIGHT IN REACH. BED ALARM SET FOR SAFETY.
--- NOTE | 2018-11-01 07:38 | NUR ---
PCU DAYSHIFT ASSUMED CARE OF PT APPROX. 0700. PT SLEEPING AT START OF SHIFT. ONCE PT AWOKE WAS ABLE TO GO IN AND TALK WITH PT. PT ALERT TO SELF. PT FAMILY ARRIVED TO PT ROOM SHORTLY AFTER ENTERING ROOM. PT SAW FAMILY AND WAS DELIGHTED TO SEE HER. PT WAS COOPERATIVE AFTER THIS POINT. ASSESSMENT COMPLETED. AND VITAL SIGNS STABLE. WILL CONTINUE TO ORIENT PT NEEDED. BED ALARM ON, BED IN LOW POSITION, CALL LIGHT IN REACH AND PT DENIES ANY NEEDS. WILL CONTINUE TO MONITOR.
--- NOTE | 2018-11-01 11:30 | NUR ---
NOTE PT FAMILY IN TO SEE PT THIS MILIND. FAMILY INTRODUCED STAFF HER FRIEND. PT MORE COOPERATIVE WITH STAFF AFTER THIS. PT ABLE TO USE URINAL TO URINATE. PT WAS ABLE TO ASKED FOR URINAL WHEN NEEDED IT. PT ABLE TO USE BEDSDIE COMMODE WHEN REPORTED NEEDING TO HAVE A BOWEL MOVEMENT. PT ALLOWED STAFF TO PERFORM CARE THIS MORNING, ALONG WITH ASSESSMENTS AND ABLE TO COMPLET SELF CARE, WHICH WAS DONE BY STAFF. PT ABLE TO HAVE A SMALL AMOUNT OF BREAKFAST. PT CURRENLTY UP IN CHAIR PER REQUEST OF PT. CHAIR ALARM ON. CALL LIGHT IN REACH AND PT DENIES ANY NEEDS AT THIS TIME. WILL CONTINUE TO MONITOR.
--- NOTE | 2018-11-01 11:44 | NUR ---
NOTE PT USE CALL LIGHT APPROPRAITELY. THIS WAS THE FIRST TIME SO FAR THIS SHIFT THE PT WAS ABLE TO DO SO. WHEN GOING INTO ROOM PT WAS ABLE TO CALMY EXPRESS HIS NEEDS AND STAFF WAS ABLE TO ASSIST THIS.
--- NOTE | 2018-11-01 13:03 | NUR ---
NOTE PT BEGAN TO HOLLER OUT AND HAD INCREASED AGGITATION WHILE SITTING IN CHAIR. STAFF ATTEMPTED TO GO IN AND UTILIZE RELAXATION TECHNIQUES AND REORIENT PT. PT CONTINUE TO INSIST HE NEEDED TO LEAVE AND THAT WE WERE "TRAPPING HIM". REASSURE HIM THAT WE ARE HERE TO HELP HIM GET BETTER. PT CONTINUED TO INSTIST THAT HE NEEDED TO TALK WITH QING. ASSISTED PT IN ATTEMPTING TO CALL QING WITH NO ANSWER. PT WAS FRUSTRATED WITH THIS ANSWER. WITH INCREASED AGGIATION I WENT AHEAD AND GAVE PRN SEREQUEL PER EMAR. PT KEPT TRYING TO GET OUT OF CHAIR AND REPORTED FEELING TIRED. DUE TO THIS AND PT SAFETY FELT IT WAS BEST FOR PT TO BE BACK IN BED. ANOTHER STAFF MEMEBR AND MYSELF ASSIST PT TO BED. PT CONTINUE TO YELL AND CURSE AT STAFF WHILE ASSISTING HIM TO BED. GET PT COMFORTBALE BACK IN BED. PT REPROTS BEING COMFORTABLE BUT CONTINUES TO HOLLER OUT AND STATE THAT HE NEEDS TO LEAVE. BED IN LOW POSITION, BED ALARM ON, CALL LIGHT IN REACH. REORIENTED PT AND DISCUSSED IMPORTANCE OF USING CALL LIGHT AND NOT HOLLER OUT. PT CONTINUES TO HOLLER OUT "PLEASE" AT THIS TIME. WHEN CHECKING IN WITH PT HE STATES HE MUST LEAVE. REORIENT NEEDED. WILL CONTINUE TO MONITOR.
--- NOTE | 2018-11-01 18:03 | NUR ---
PT ARRIVED TO THE MEDICAL FLOOR AT THIS TIME, ALERT DISORIENTED AND IRRIATABLE, THE PT WAS ORIENTED TO THE CALL SYSTEM, CALL LIGHT IN REACH, BED ALARM APPLIED, THE PT APPEARS TO BE BREATHING EASILY ON O2 @ 2LMIN AT REST, THE PT WAS MEDICATED FOR PAIN JUST PRIOR TO ARRIVING ON THE MEDICAL FLOOR , WILL CONTINUE TO MONITOR AND ASSESS FOR CHANGES
--- NOTE | 2018-11-01 18:15 | NUR ---
NOTE AND TRANSFER NOTE- PT CONTINUE TO HOLLER OUT AND HAVE INCREASED AGGITATION. SEVERAL DIFFERENT STAFF MEMEBERS ATTEMPTED TO GO IN AND CALMLY TALK WITH PATIENT AND ATTEMPT TO GET PT TO LISTEN. DURING THIS TIME STAFF ALSO TRIED MANY DIFFERENT INTERVENTIONS INCLUDING SETTING PT IN CHAIR, MOVING PT TO RECLINER, PROVIDING PT WITH MAGAZINES AND NEWSPAPER, TURNING MUSIC ON THE TV, OPENED AND CLOSED THE BLINDS AND PT CONTINUED TO HOLLER AND BE AGGITATED. PT AGGITATION CONTINUED TO WORSEN DISBITE ATTEMPTS FROM STAFF. PT OFTEN WOULD CALM DOWN BRIEFLY AND THEN HAVE INCREASED AGGIATION. PT BEGAN TO ATTEMPT TO TAKE OFF OXYGEN TUBES, IV AND BOTTLE GAUGER. PT ALSO BEGAN TO ATTEMPT TO WALK OUT OF ROOM STATING THAT HE WAS LEAVING. HE CONTINUE TO HOLLER FOR PEOPLE AND ASKED FOR SOMEONE TO GET HIM OUT. WHEN REORIENTING AND PROVIDING PT WITH REASSURANCE PT WOULD CURSE AND YELL BACK AT STAFF. THE DAY PROGRESS THE PT BEGAN TO MAKE FITS AND SWING AT THE PT. A FEW TIMES WHEN ATTEMPT TO ASSIST PT BACK TO BED OR THE CHAIR PT GRABBED MY ARMS AND YELLED AT ME TO LEAVE HIM ALONE. I RESPONDED WITH LETTING HIM KNOW HE WAS EXPRESS HIS WISHES WITH HIS WORDS AND THAT HE NEEDED TO RESPECT THE STAFF. TOLD THE PATIENT THAT TRYING TO HIT THE STAFF WAS NOT THE SOLUTION TO THE PROBLEM. PT WAS BACK AND FORTH FROM THE BED TO THE CHAIR DURING THESE TIMES, WITH ASSISTANCE FROM STAFF. ALARMS WERE TURNED WITH EACH OF THESE. PT WAS SETTING OFF ALARM EVERY COUPLE OF MINUTES. MYSELF AND OTHER STAFF IN UNIT WERE UNABLE TO EFFECTIVE PROVIDE CARE IN OTHER ROOMS WITH THIS PT CONTINUALLY SETTING BED ALARM OFF AND ATTEMPTING TO LEAVE. NOTIFIED PHYSICIAN OF THIS. PHYSICIAN WAS ABLE TO GO IN ROOM AND SPEAK WITH PATIENT, PHYSICIAN REVIEWED THE CHART AND MADE ADJUSTMENTS TO ORDERS. AT THIS TIME I RECIEVED ORDERS TO TRANSFER THE PT TO MEDICAL FLOOR. GAVE MEDICATIONS PER EMAR AND PHYSICIAN ORDERS. TRANSFER- RECIEVED NEW ROOM ASSIGNMENT. GAVE REPORT TO RECIEVING RN. PT WAS THEN TRANSFERED FROM UNIT BY MYSELF AND PEER STAFF MEMEBER TO NEW ROOM VIA BED. ONCE THERE WE WERE ABLE TO SLIDE PT OVER TO NEW BED. INTRODUCED PT TO NEW NURSE. NO S/S/X OF ACUTE DISTRESS AT THIS TIME.
--- NOTE | 2018-11-01 18:24 | NUR ---
GAVE THE PT 1 MG ATIVAN ORDERED BY DR. SHAHRAM TRINIDAD AT THIS TIME UNTIL FURTHER REVIEW OF PT FOR SEDATION
[2018-11-01 20:52] LABS: Vancomycin, Random 9.3 ug/mL
[2018-11-02 05:18] LABS: Bun/Creatinine Ratio 20.5 (12.0-20.0); Calcium, Blood 7.9 mg/dL (8.5-10.1); Creatinine, Blood 1.71 mg/dL (0.60-1.20); Potassium, Blood 4.1 mmol/L (3.5-5.5)
[2018-11-02 05:25] LABS: Phosphorus, Blood 5.3 mg/dL (2.5-4.9)
--- NOTE | 2018-11-02 06:35 | NUR ---
SHIFT SUMMARY PT IS A 68 Y/O MALE, ADMITTED WITH ACUTE METABOLIC ENCEPHALOPATHY. HE IS A&O X SELF ONLY, WITH A HX OF ADVANCING DEMENTIA. AFTER THE PT RECEIVED IV ATIVAN DURING DAY SHIFT, HE SLEPT WELL THROUGH THE NIGHT. HE APPEARED COMFORTABLE WITH NO S/SX OF PAIN OR DISTRESS. HE REMAINED ON 2L OF O2 VIA NC. VITALS REMAINED STABLE. THE PT DID HAVE ONE LIQUID BM DURING THE NIGHT, THOUGH THE HOSPITALIST DR LEVY DENIED THE NEED FOR A C-DIFF RULE OUT UNTIL THE PT HAS HAD AT LEAST 4 LIQUID BMS IN A 24-HOUR PERIOD. NO OTHER ACUTE CHANGES IN PT CONDITION NOTED. WILL CONTINUE TO MONITOR AND TREAT PER EMAR UNTIL HAND OFF TO DAY SHIFT.
[2018-11-02 13:32] LABS: Adenovirus F 40/41 Not Detected (NOT DETECT); Astrovirus Not Detected (NOT DETECT); Campylobacter Sp Not Detected (NOT DETECT); Cryptosporidium Not Detected (NOT DETECT); Cyclospora Cayetanensis Not Detected (NOT DETECT); E. Coli O157 Not Detected (NOT DETECT); Entamoeba Histolytica Not Detected (NOT DETECT); Enteroaggregative E. coli-EAEC Not Detected (NOT DETECT); Enteropathogenic E. coli-EPEC Not Detected (NOT DETECT); Enterotoxigenic E. coli-ETEC Not Detected (NOT DETECT); Giardia Lamblia Not Detected (NOT DETECT); Norovirus GI/GII Not Detected (NOT DETECT); Plesiomonas Shigelloides Not Detected (NOT DETECT); Rotavirus A Not Detected (NOT DETECT); Salmonella Sp Not Detected (NOT DETECT); Sapovirus Not Detected (NOT DETECT); Shiga Toxin-prod E. coli-STEC Not Detected (NOT DETECT); Shigella/Enteroin E. coli-EIEC Not Detected (NOT DETECT); Vibrio Cholerae Not Detected (NOT DETECT); Vibrio Sp Not Detected (NOT DETECT); Yersinia Enterocolitica Not Detected (NOT DETECT)
--- NOTE | 2018-11-02 13:52 | NUR ---
PER REQUEST BLADDER SCAN FOR LOWER ABD PAIN AND IF OVER 200ML PUT IN ALLAN. NOTIFIED SCAN SHOWED 146ML.AND PATIENT HAS BEEN URINATING TODAY. NO FURTHER ORDERS.
--- NOTE | 2018-11-02 16:35 | NUR ---
PT IS ALERT, HAS BEEN DROWSY T/O THE DAY, AWAKENS TO VERBAL STIMULI, THE PT IS UP WITH MINIMAL ASSIST, TO THE BATHROOM, THE PT WAS UP IN THE CHAIR FOR BREAKFAST AND LUNCH MOMENTARILY, THE PT HAD LITTLE PO INTAKE EVEN WHEN ENCOURAGED TO EAT, THE PT DID HOWEVER TAKE HIS MORNING MEDICATIONS, THE PT HAD MULTIPLE INCONTNENT VOIDS, WELL SOME UNMEASURED VOIDS, THE OCCUPATIONAL THERAPIST ATTEMPTED TO WORK WITH THE PT THIS AFTERNOON AND WAS ABLE TO HAVE SOME MINIMAL INTERACTION, THE PT IS A MOUTH BREATHER WHILE ASLEEP AND THERFORE O2 WAS APPLIED TO THE MOUTH FOR BETTER O2 SAT, CALL LIGHT IN REACH, BED ALARM ON
[2018-11-03 05:20] LABS: BASOPHILS ABSOLUTE AUTO 0.03 K/mm3 (0.00-0.23); BASOPHILS PERCENT AUTO 0 % (0-2); EOSINOPHILS ABSOLUTE AUTO 0.45 K/mm3 (0.00-0.68); EOSINOPHILS PERCENT AUTO 5 % (0-6); Hematocrit 37.2 % (37.0-53.0); Hemoglobin 11.2 g/dL (13.5-17.5); IMMATURE GRAN PERCENT AUTO 1 % (0-1); LYMPHOCYTES ABSOLUTE AUTO 1.21 K/mm3 (0.84-5.20); LYMPHOCYTES PERCENT AUTO 14 % (21-46); MONOCYTES ABSOLUTE AUTO 0.91 K/mm3 (0.16-1.47); MONOCYTES PERCENT AUTO 10 % (4-13); Mean Corpuscular HGB 29.1 pg (26.0-34.0); Mean Corpuscular HGB Conc 30.1 g/dL (31.5-36.5); Mean Corpuscular Volume 97 fL (80-100); NEUTROPHILS ABSOLUTE AUTO 6.06 K/mm3 (1.96-9.15); NEUTROPHILS PERCENT AUTO 69 % (41-73); Platelet Count 135 K/mm3 (150-400); RDW Coefficient Variation 12.7 % (11.7-14.2); RDW Standard Deviation 44.7 fL (35.1-46.3); Red Blood Cell Count 3.85 M/mm3 (4.30-5.90); White Blood Cell Count 8.76 K/mm3 (4.00-11.30)
[2018-11-03 05:57] LABS: Albumin/Globulin Ratio 0.6 (0.8-1.8); Bilirubin, Total 0.2 mg/dL (0.1-1.0); Calcium, Blood 7.5 mg/dL (8.5-10.1); Creatinine, Blood 1.62 mg/dL (0.60-1.20); Globulin, Blood 3.5 g/dL (2.2-4.0); Potassium, Blood 4.1 mmol/L (3.5-5.5); Total Protein, Blood 5.5 g/dL (6.4-8.2)
--- NOTE | 2018-11-03 06:13 | NUR ---
SHIFT SUMMARY PT SOMNOLENT SLEEPY WILL BE IMPULSIVE AND AWAKE TO URINATE OR BM BUT THEN WILL GO BACK TO SLEEPING AFTERWARDS. HAD BEEN INCONT OF BM AND URINE X1 BUT WILL ALSO BE CONT AND WILL AWAKE AND GET OOB UNASSISTED WHEN HE NEEDS TO URINATE. BED ALARM IN USE. PT VERY CONFUSED AND DOESNT FOLLOW COMMANDS VERY WELL, DOESNT SEEM TO COMPREHEND WELL, REPEATS WORDS. 2L O2 NC. BLADDER SCAN SHOWED POSTVOID OF 145. PT SLEEPING, AWAKES FOR URINATING.
--- NOTE | 2018-11-03 16:50 | NUR ---
PT AOX2 AND VERY CONFUSED.PT APPEARS VERY UNCOMFORTABLE AND DOES NOT LIKE TO BE UP IN CHAIR LONG. PT HAS NOT EATEN AND HAS REFUSED ALL MEDICATIONS. PT CALLS OUT WANTING TO LEAVE AND AT FIRST COULD BE REDIRECTED. CALLED DR OMALLEY TO SEE IF SHE COULD PRESCRIBE SOMETHING IV TO HELP CALM PT HE IS CALLING OUT MORE AND REDIRECTION IS NOT WORKING. PT IS IMPULSIVE AND HAS TO HAVE BED ALARM IN PLACE HE JUMPS UP TO USE RESTROOM AND WILL NOT PAY ATTENTION TO IV LINES OR O2 LINE. WILL CONTINUE TO MONITOR.
[2018-11-03 18:04] LABS: PCO2 Arterial 44.8 mmHg (35-45); PO2 Arterial 102 mmHg (80-100); pH Blood Arterial 7.37 (7.35-7.45)
[2018-11-04 05:47] LABS: Bun/Creatinine Ratio 12.5 (12.0-20.0); Calcium, Blood 7.9 mg/dL (8.5-10.1); Creatinine, Blood 1.68 mg/dL (0.60-1.20); Potassium, Blood 4.1 mmol/L (3.5-5.5)
--- NOTE | 2018-11-04 06:32 | NUR ---
SHIFT SUMMARY PT CONFUSED FORGETFUL ANXIOUS AND IMPULSIVE. VERY HIGH ANXIETY WITH RR AND HR INCREASED. DANO ALLOY WEIGHER ORDERED OT IM ZYPREXA AND THIS WAS ABLE TO CALM HIM DOWN SO THAT HE COULD GET TO SLEEP. HE WILL AWAKE TO URINATE BUT WILL GO BACK TO SLEEP AFTER. STILL HAVING SOME DIFFICULTY WITH CUEING AND REDIRECTING. HAS BEEN CONT OF URINE. BED ALARM IN USE.
--- NOTE | 2018-11-04 16:50 | NUR ---
INCREASE IN AGITATION PT EXPERIENCING AN INCREASE IN AGITATION. DR. BALDERAS CALLED & NOTIFIED. 5MG ZYPREXA IM ORDERED Q6 NEEDED. PT MEDICATED WITH FIRST DOSE. WILL CONTINUE TO MONITOR.
--- NOTE | 2018-11-04 17:31 | NUR ---
SHIFT SUMMARY PT INCREASED IN AGITATION & YELLING INTO HALLWAY THIS AFTERNOON. PT MEDICATED WITH ZYREXA IM. PT NOW RESTING IN BED. CALL LIGHT IN REACH. NO OTHER CHANGES IN ASSESSMENT AT THIS TIME. PT TACHYCARDIC. THIS IS CONSISTANT WITH HIS STAY. PT REFUSES DAILY ORAL MEDICATIONS, INCLUDING HIS METOPEROL. DR. BALDERAS AWARE. OTHER VITALS STABLE. WILL CONTINUE TO MONITOR UNTIL TURNOVER IS COMPLETE.
--- NOTE | 2018-11-05 05:42 | NUR ---
SUMMARY: PT BEGAN SHIFT CALLING INTO THE HALLS REPEATEDLY FOR "HELP" BUT WAS UNABLE TO SPECIFY NEEDS. HE WOULD BE IMPULSIVE TO EOB AND CLAIMED TO BE HAVING TROUBLE BX. HE APPEARED ANXIOUS BUT RESPS WERE E/U AND SPO2 WNL ON HOME DOSE OF 2.5L O2 VIA NC. HE EVENTUALLY REPORTED BACK PAIN AND TYLENOL WAS PROVIDED PRN FOR GOOD EFFECT. PT FELL ASLEEP AFTERWARD AND SLEPT MAJORITY OF NOCTE. MEPILEX REMAINS INTACT TO BUTTOCKS AND SCATTERED BRUISES OBSERVED TO EXT'S. URINAL AND BSC ASSIST PROVIDED PRN AND HE HAD A SMALL LOOSE BM THIS SHIFT. NO ACUTE CHANGES, VSS/AFEBRILE. WCTM AND REPORT TO DAY RN.
--- NOTE | 2018-11-05 05:50 | NUR ---
PT REFUSING AM LABS. WILL TRY AGAIN LATER AND ENSURE DAY STAFF ARE AWARE.
--- NOTE | 2018-11-05 08:39 | NUR ---
REFUSAL OF BREAKFAST PT CONTINUES TO REFUSE ORAL INTAKE OF FOOD. PT ALLOWS SMALL SIPS OF WATER. PT AGREED TO TAKE ORAL MEDICATION THIS AM. WILL CONITUNE TO MONITOR.
[2018-11-05 09:25] LABS: BASOPHILS ABSOLUTE AUTO 0.02 K/mm3 (0.00-0.23); BASOPHILS PERCENT AUTO 0 % (0-2); EOSINOPHILS ABSOLUTE AUTO 0.46 K/mm3 (0.00-0.68); EOSINOPHILS PERCENT AUTO 6 % (0-6); Hematocrit 40.9 % (37.0-53.0); Hemoglobin 12.5 g/dL (13.5-17.5); IMMATURE GRAN ABSOLUTE AUTO 0.07 K/mm3 (0.00-0.10); IMMATURE GRAN PERCENT AUTO 1 % (0-1); LYMPHOCYTES ABSOLUTE AUTO 1.14 K/mm3 (0.84-5.20); LYMPHOCYTES PERCENT AUTO 15 % (21-46); MONOCYTES ABSOLUTE AUTO 0.76 K/mm3 (0.16-1.47); MONOCYTES PERCENT AUTO 10 % (4-13); Mean Corpuscular HGB 28.7 pg (26.0-34.0); Mean Corpuscular HGB Conc 30.6 g/dL (31.5-36.5); Mean Platelet Volume 12.3 fL (9.1-12.4); NEUTROPHILS PERCENT AUTO 68 % (41-73); Platelet Count 162 K/mm3 (150-400); RDW Coefficient Variation 13.1 % (11.7-14.2); RDW Standard Deviation 44.2 fL (35.1-46.3); Red Blood Cell Count 4.36 M/mm3 (4.30-5.90); White Blood Cell Count 7.75 K/mm3 (4.00-11.30)
[2018-11-05 09:34] LABS: Mean Corpuscular Volume 94 fL (80-100)
[2018-11-05 09:46] LABS: Albumin, Blood 2.2 g/dL (3.4-5.0); Albumin/Globulin Ratio 0.6 (0.8-1.8); Bilirubin, Total 0.3 mg/dL (0.1-1.0); Bun/Creatinine Ratio 12.1 (12.0-20.0); Calcium, Blood 8.2 mg/dL (8.5-10.1); Creatinine, Blood 1.57 mg/dL (0.60-1.20); Globulin, Blood 3.8 g/dL (2.2-4.0); Potassium, Blood 3.8 mmol/L (3.5-5.5)
--- NOTE | 2018-11-05 17:15 | NUR ---
SHIFT SUMMARY PT VERY SLEEPY THIS SHIFT. PT WAKES TO VERBAL STIMULI & TO VOID. PT CONTINUES TO REFUSE MEALS OR SNACKS. SMALL SIPS OF WATER ACCEPTED WHEN AWAKE. NO OTHER CHANGES IN ASSESSMENT AT THIS TIME. VSS. WILL CONTINUE TO MONITOR UNTIL TURNOVER IS COMPLETE.
--- NOTE | 2018-11-06 06:05 | NUR ---
SHIFT SUMMARY NO ACUTE CHANGES OVERNIGHT. PT HAS SLEPT ON AND OFF T/O THE NIGHT. RESPONDED TO THE INCREASED DOSE OF SEROQUELL THAT WAS ORDERED FOR 2100. MEDICATED ONCE FOR CHRONIC LOW BACK PAIN EALIER THIS AM. PT YELLS OUT OCCASIONALLY BUT FOR THE MOST PART HAS BEEN PLESANT AND COOPERATIVE. VITALS STABLE WILL CONTINUE TO MONITOR AND REPORT TO ONCOMING RN.
[2018-11-06 06:10] LABS: BASOPHILS ABSOLUTE AUTO 0.03 K/mm3 (0.00-0.23); BASOPHILS PERCENT AUTO 0 % (0-2); EOSINOPHILS ABSOLUTE AUTO 0.44 K/mm3 (0.00-0.68); EOSINOPHILS PERCENT AUTO 6 % (0-6); Hematocrit 39.3 % (37.0-53.0); IMMATURE GRAN ABSOLUTE AUTO 0.04 K/mm3 (0.00-0.10); IMMATURE GRAN PERCENT AUTO 1 % (0-1); LYMPHOCYTES PERCENT AUTO 20 % (21-46); MONOCYTES ABSOLUTE AUTO 0.78 K/mm3 (0.16-1.47); MONOCYTES PERCENT AUTO 11 % (4-13); Mean Corpuscular HGB 29.4 pg (26.0-34.0); Mean Corpuscular HGB Conc 30.5 g/dL (31.5-36.5); Mean Corpuscular Volume 96 fL (80-100); Mean Platelet Volume 11.9 fL (9.1-12.4); NEUTROPHILS ABSOLUTE AUTO 4.34 K/mm3 (1.96-9.15); NEUTROPHILS PERCENT AUTO 62 % (41-73); Platelet Count 177 K/mm3 (150-400); RDW Standard Deviation 45.6 fL (35.1-46.3); Red Blood Cell Count 4.08 M/mm3 (4.30-5.90); White Blood Cell Count 7.03 K/mm3 (4.00-11.30)
[2018-11-06 06:41] LABS: Albumin, Blood 2.2 g/dL (3.4-5.0); Albumin/Globulin Ratio 0.6 (0.8-1.8); Bilirubin, Total 0.5 mg/dL (0.1-1.0); Bun/Creatinine Ratio 11.8 (12.0-20.0); Calcium, Blood 8.3 mg/dL (8.5-10.1); Creatinine, Blood 1.7 mg/dL (0.60-1.20); Globulin, Blood 3.5 g/dL (2.2-4.0); Potassium, Blood 3.8 mmol/L (3.5-5.5); Total Protein, Blood 5.7 g/dL (6.4-8.2)
--- NOTE | 2018-11-06 17:21 | NUR ---
PT IS AOX2 AND STILL HAS A LOT OF CONFUSION. PT CONTINUES TO NOT WANT TO EAT MUCH, BUT WAS MUCH MORE COOPERATIVE THAN HE WAS TWO DAYS AGO. PT APPEARS MORE ALERT AND NOT SLEEPY. PT DOING WELL A ONE PERSON ASSIST TO RESTROOM. PT HAS HAD A HEADACE AND BACK ACHE AND HAS BEEN TREATED PER EMAR. WILL CONTINUE TO MONITOR.
--- NOTE | 2018-11-07 04:37 | NUR ---
SHIFT SUMMARY PT HAS SLEPT MOST OF THE NIGHT, HE HAS BEEN PLESANT WITH CARE. VITALS STABLE, ASSESSMENT UNCHANGED. WILL CONTINUE TO MONITOR AND REPORT TO ONCOMING RN.
--- NOTE | 2018-11-07 10:36 | NUR ---
PT SLEEPING MOST OF THE AM. IV TO R WRIST 22G FLUSHED WITH 10ML NS, PATENT.
--- NOTE | 2018-11-07 18:23 | NUR ---
SHIFT SUMMARY. ALERT, INTERMITTENT ORIENTATION, PT KNEW HIS NAME, HE IS IN HOSPITAL, AND HE IS IN [place]. PT PLEASANT THROUGHOUT SHIFT, FOLLOWS COMMANDS, ANSWERS QUESTIONS APPROPRIATELY. PT WITH CHRONIC PAIN TO LOWER BACK, ATTEMPTED TO MEDICATE WITH APAP THAT WAS ORDERED, PT CONTINUED TO BE IN PAIN. DR. MÉNDEZ NOTIFIED AND RECIEVED NEW ORDERS FOR ULTRAM AND LIDOCAINE PATCH. PT REPORTS IMPROVED PAIN MANAGEMENT AFTER NEW INTERVENTIONS, PT APPEARS IN LESS DISCOMFORT AND WITH IMPROVED MOOD. PT DENIES SOB, N/V. CONTINUES WITH 2L O2 NC, LUNGS CLEAR. PT CONTINUES WITH POOR PO INTAKE, PT ENCOURAGED TO INCREASE INTAKE WITH EACH MEAL, SUPPLEMENTS OFFERED WITH POOR MEAL INTAKE. FRESH WATER AT BEDSIDE TABLE WITH EACH MEAL. PT REFUSED TO GET INTO CHAIR FOR 2 MEALS. PT DID PARTICIPATE WITH PT/OT, ALTHOUGH WAS RESISTANT.
--- NOTE | 2018-11-08 05:03 | NUR ---
Shift summary: Pt has been alert, oriented and appropriate for the most part during the shift. Pt c/o alot of back pain at beginning of shift. Ultram given with little relief. Pt given tylenol also at 2230 and pt was able to get relief. Order for percocet was recieved but pt did not request it. Pt sleeping since getting the tylenol. Pt remains on contact isolation.
--- NOTE | 2018-11-08 15:46 | NUR ---
PT WITH 22G TO R WRIST THAT WAS REMOVED IT WAS NO LONGER PATENT. DR. MÉNDEZ NOTIFIED AND RECIEVED ORDERS FOR NO IV ACCESS NEEDED, D/C IV LASIX, AND LASIX 40MG PO BID.
--- NOTE | 2018-11-08 18:18 | NUR ---
SHIFT SUMMARY. A&OX2-3, INTERMITTENT CONFUSION ALTHOUGH COGNITION APPEARS IMPROVED FROM YESTERDAY. PT IS COOPERATIVE WITH CARE, ALTHOUGH IS RESISTANT TO PARTICIPATE COMPLETLY WITH PT/OT. PT REFUSED SHOWER AND BED BATH. PT WITH CHRONIC BACK PAIN THAT HAS BEEN MANAGED BETTER TODAY WITH MEDICATIONS THAT WERE ADDED YESTERDAY. DRESSING TO L BUTTOCK CHANGED TODAY, DECUB IS NEARLY HEALED. PLAN IS TO D/C BACK TO [facility] TOMORROW.
--- NOTE | 2018-11-09 04:04 | NUR ---
Shift summary: Pt had good shift. Pain control adequate. Pt slept most of shift. Up to bedside commode x 1 with assist. pt calls for help appropriately. pt has been alert, oriented and cooperative with cares. Pt awaiting placement .
[2018-11-09 04:53] LABS: BASOPHILS ABSOLUTE AUTO 0.04 K/mm3 (0.00-0.23); BASOPHILS PERCENT AUTO 1 % (0-2); EOSINOPHILS ABSOLUTE AUTO 0.39 K/mm3 (0.00-0.68); EOSINOPHILS PERCENT AUTO 8 % (0-6); Hematocrit 38.4 % (37.0-53.0); Hemoglobin 11.7 g/dL (13.5-17.5); IMMATURE GRAN ABSOLUTE AUTO 0.03 K/mm3 (0.00-0.10); IMMATURE GRAN PERCENT AUTO 1 % (0-1); LYMPHOCYTES ABSOLUTE AUTO 1.75 K/mm3 (0.84-5.20); LYMPHOCYTES PERCENT AUTO 34 % (21-46); MONOCYTES ABSOLUTE AUTO 0.71 K/mm3 (0.16-1.47); MONOCYTES PERCENT AUTO 14 % (4-13); Mean Corpuscular HGB 29.8 pg (26.0-34.0); Mean Corpuscular HGB Conc 30.5 g/dL (31.5-36.5); Mean Corpuscular Volume 98 fL (80-100); Mean Platelet Volume 11.1 fL (9.1-12.4); NEUTROPHILS ABSOLUTE AUTO 2.31 K/mm3 (1.96-9.15); NEUTROPHILS PERCENT AUTO 44 % (41-73); Platelet Count 159 K/mm3 (150-400); RDW Coefficient Variation 12.9 % (11.7-14.2); RDW Standard Deviation 45.1 fL (35.1-46.3); Red Blood Cell Count 3.93 M/mm3 (4.30-5.90); White Blood Cell Count 5.23 K/mm3 (4.00-11.30)
[2018-11-09 05:33] LABS: Bun/Creatinine Ratio 16.7 (12.0-20.0); Calcium, Blood 8.5 mg/dL (8.5-10.1); Creatinine, Blood 1.74 mg/dL (0.60-1.20); Potassium, Blood 3.5 mmol/L (3.5-5.5)
[2018-11-09] MEDS ORDERED: QUET25 PO (13:39)
--- NOTE | 2018-11-09 16:31 | NUR ---
DISCHARGE PATIENT DISCHARGED TO [facility]. PACKET WITH INSPECTOR POISING. BELONGINGS WITH PATIENT. PATIENT TRANSPORTED VIA WHEELCHAIR TRANSPORT. REPORT CALLED TO [facility] NURSE.
== END 2018-11-09 16:28 | DRG 682 ==
LOC: ER 18:32 → PCU 21:46 → MEDS 21:46 → PCU 22:54 → MEDS 11-01 17:51
PROVIDERS: Emergency Medicine; Family Medicine; Internal Medicine; ADMIT Internal Medicine
DX: N17.9 Acute kidney failure, unspecified (principal); G92 Toxic encephalopathy; E86.0 Dehydration; I48.2 Chronic atrial fibrillation; Z79.01 Long term (current) use of anticoagulants; F03.90 Unspecified dementia, unspecified severity, without behavioral disturbance, psychotic disturbance, mood disturbance, and anxiety; K74.60 Unspecified cirrhosis of liver; E87.6 Hypokalemia; I12.9 Hypertensive chronic kidney disease with stage 1 through stage 4 chronic kidney disease, or unspecified chronic kidney disease; N18.3 Chronic kidney disease, stage 3 (moderate); Z99.81 Dependence on supplemental oxygen; J44.9 Chronic obstructive pulmonary disease, unspecified; G47.33 Obstructive sleep apnea (adult) (pediatric); F17.210 Nicotine dependence, cigarettes, uncomplicated; R63.0 Anorexia
CPT/HCPCS: 0097U; 36415; 36600; 71046; 74018; 74176; 80048; 80053; 80202; 81001; 82140; 82803; 83605; 83690; 83735; 83880; 84100; 84145; 84295; 84443; 84484; 85025; 85610; 87040; 87086; 92523; 93005; 93010; 93306; 94640; 94760; 94762; 96361; 96365; 96366; 96374; 97110; 97162; 97166; 97530; 97535; 99284-25; 99285-25; A9270; C9113; J0696; J1630; J1650; J1940; J2060; J2405; J3010; J3370; J3480; J7030; J7042; J7070

== ENCOUNTER 2019-01-14 00:41 | Inpatient (IN) | payer MEDICARE, OTHER ==
[~2019-01-14] VITALS: Ht 167.6 cm; Wt 68.4 kg
[~2019-01-14 00:41] MED LIST changes: +ONDA4 PO; +SUBOXONE 4 MG-1 EACH SL
[2019-01-14 00:50] LABS: PCO2 Arterial 99.4 mmHg (35-45); PO2 Arterial 70.7 mmHg (80-100); pH Blood Arterial 7.18 (7.35-7.45)
[2019-01-14] MEDS ORDERED: QUET25 PO ×2 (00:56→00:58)
[2019-01-14] MEDS ORDERED: Bumetanide1 MG PO (00:56)
[2019-01-14] MEDS ORDERED: SENN187 PO (00:56)
[2019-01-14] MEDS ORDERED: DULO30 PO (00:56)
[2019-01-14] MEDS ORDERED: ASPI81CH PO (00:56)
[2019-01-14 00:57] LABS: BASOPHILS ABSOLUTE AUTO 0.07 K/mm3 (0.00-0.23); BASOPHILS PERCENT AUTO 1 % (0-2); EOSINOPHILS ABSOLUTE AUTO 1.28 K/mm3 (0.00-0.68); EOSINOPHILS PERCENT AUTO 10 % (0-6); Hematocrit 35.7 % (37.0-53.0); Hemoglobin 10.7 g/dL (13.5-17.5); IMMATURE GRAN ABSOLUTE AUTO 0.06 K/mm3 (0.00-0.10); IMMATURE GRAN PERCENT AUTO 1 % (0-1); LYMPHOCYTES ABSOLUTE AUTO 2.39 K/mm3 (0.84-5.20); LYMPHOCYTES PERCENT AUTO 19 % (21-46); MONOCYTES ABSOLUTE AUTO 1.31 K/mm3 (0.16-1.47); MONOCYTES PERCENT AUTO 10 % (4-13); Mean Corpuscular HGB 30.8 pg (26.0-34.0); Mean Corpuscular Volume 103 fL (80-100); Mean Platelet Volume 10.7 fL (9.1-12.4); NEUTROPHILS ABSOLUTE AUTO 7.46 K/mm3 (1.96-9.15); NEUTROPHILS PERCENT AUTO 59 % (41-73); Platelet Count 261 K/mm3 (150-400); RDW Coefficient Variation 13.5 % (11.7-14.2); RDW Standard Deviation 51.3 fL (35.1-46.3); Red Blood Cell Count 3.47 M/mm3 (4.30-5.90); White Blood Cell Count 12.57 K/mm3 (4.00-11.30)
[2019-01-14] MEDS ORDERED: DOCU100 PO (00:57)
[2019-01-14] MEDS ORDERED: METO25ER PO (00:57)
[2019-01-14] MEDS ORDERED: META800 PO ×2 (00:58→01:00)
[2019-01-14] MEDS ORDERED: ALBU3IS INH (00:59)
[2019-01-14] MEDS ORDERED: ACET325 PO (00:59)
[2019-01-14] MEDS ORDERED: OXYC10TA19 PO (00:59)
[2019-01-14] MEDS ORDERED: COMBIVENT RESPIM4 GM INH (01:00)
[2019-01-14] MEDS ORDERED: GUAI600T33 PO (01:00)
[2019-01-14] MEDS ORDERED: Tizanidine HCl2 MG PO (01:01)
[2019-01-14] MEDS ORDERED: ONDA4 PO ×2 (01:01→05:02)
[2019-01-14] MEDS ORDERED: TIZA4 PO (01:01)
[2019-01-14 01:18] LABS: Alanine Aminotransfer (ALT/SGP 14 U/L (12-78); Albumin/Globulin Ratio 0.7 (0.8-1.8); Alk Phos 139 U/L (50-136); Anion Gap 2 mmol/L (6-16); Aspartate Aminotrans (AST/SGOT 9 U/L (12-37); Bilirubin, Total 0.3 mg/dL (0.1-1.0); Blood Urea Nitrogen 23 mg/dL (8-24); Bun/Creatinine Ratio 17.4 (12.0-20.0); CO2, Blood 38 mmol/L (21-32); Calcium, Blood 9.2 mg/dL (8.5-10.1); Chloride, Blood 103 mmol/L (98-108); Creatinine, Blood 1.32 mg/dL (0.60-1.20); Globulin, Blood 4.4 g/dL (2.2-4.0); Glomerular Filtration Rate 57 (60-); Glucose, Blood 161 mg/dL (70-99); Potassium, Blood 4.3 mmol/L (3.5-5.5); Sodium, Blood 143 mmol/L (136-145); Total Protein, Blood 7.4 g/dL (6.4-8.2); Troponin I <0.015 ng/mL (0.000-0.040)
--- NOTE | 2019-01-14 04:30 | NUR ---
PT ARRIVES TO ICU BED 1 VIA GURNEY A PCU STATUS PATIENT FOR DX OF COPD EXACERBATION. PT ADMITS TO CONTINUING TO BE SHORT OF BREATH HOWEVER STATES THAT HIS BREATHING FEELS IMPROVED FROM ARRIVAL IN ER, BIPAP WITH SETTINGS 14/6, BUR 12, FIO2 30% PT TOLERATING WELL WITH SATS MID 90S, LUNGS ARE DIM THROUGHOUT, TIDAL VOLUMES 5-600 AT THIS TIME. HRR, SINUS TACH NOTED ON MONITOR, RATE 100-110S AT THIS TIME, PT DENIES CP/PRESSURE, DENIES N/V, PRESSURE IS MAINTAINING AT THIS TIME, SKIN IS PWD WITH CAP REFILL 3-4 SECONDS, TRACE, NON-PITTING EDEMA NOTED TO BILAT LOWER EXTREMITIES. ABD SOFT, NORMOACTIVE BOWEL TONES, NO GRIMACING OR GUARDING WITH LIGHT PALPATION. IV ACCESS NOTED 18 G TO LEFT AC AND 20 TO RIGHT FOREARM, INFUSING ROCEPHIN AT THIS TIME VIA RIGHT FOREARM SITE.
[2019-01-14] MEDS ORDERED: BISA10S PR (05:02)
--- NOTE | 2019-01-14 05:42 | NUR ---
INCREASED FIO2 TO 40% FROM 30% FOR SATS 85-88% WILL MONITOR.
--- NOTE | 2019-01-14 06:20 | NUR ---
PT NEW ADMIT THIS SHIFT FOR DX OF COPD EXACERBATION, TOLERATING BIPAP WELL AND RESTING QUIETLY. FIO2 INCREASED TO 40% SINCE ADMISSION OTHERWISE NO ACUTE CHANGES SINCE 429 ADMISSION.
--- NOTE | 2019-01-14 06:55 | NUR ---
REPORT FROM PETER QUIROS. ASSUMED PT CARE.
--- NOTE | 2019-01-14 07:25 | NUR ---
VSS. ASSESSMENT CHARTED. PT MEDICATED WITH SCHED SOLUMEDROL IV. FLUSHED WELL. CAPS PLACED. PT SEEMS TO BE RESTING EASILY. BIPAP IN PLACE. PT FRANK WELL. CALL LIGHT IN REACH.
--- NOTE | 2019-01-14 08:01 | NUR ---
PT CALLING OUT "IM GONNA , IM GONNA " STAFF TO ROOM, PT SOOTHED EASILY. ASSISTED IN BOOSTING PT UP IN BED.
--- NOTE | 2019-01-14 08:51 | NUR ---
PT ASSISTED IN SITTING UP IN BED. BREAKFAST PROVIDED. PT MEDICATED PER EMAR. LINENS DRY. OFFERED PT URINAL. PT STATES HE DOESNT NEED TO GO.
--- NOTE | 2019-01-14 09:37 | NUR ---
PT MEDICATED PER EMAR. TRAY CLEARED. PT STATES THAT PAIN MEDS HAVE NOT TOUCHED HIS PAIN, WILL LOOK AT EMAR FOR FURTHER PAIN MEDS.
--- NOTE | 2019-01-14 13:20 | NUR ---
PT SLEEPING, RESP EVEN WITH BIPAP. SATS 99%. NADN. WILL CONT TO MONITOR.
--- NOTE | 2019-01-14 14:20 | NUR ---
PT MEDICATED PER EMAR, THIS RN HAD TO WAKE PT FROM SLEEP TO GIVE MEDS. URINAL EMPTIED. BIPAP PLACED BACK ON PT.
--- NOTE | 2019-01-14 14:48 | NUR ---
DR ROBERTS TO ROOM FOR EVAL. PLAN TO REPEAT GAS.
--- NOTE | 2019-01-14 15:07 | NUR ---
RESP THERAPIST TO ROOM FOR REPEAT ABG.
[2019-01-14 15:13] LABS: PCO2 Arterial 71 mmHg (35-45); PO2 Arterial 124 mmHg (80-100); pH Blood Arterial 7.33 (7.35-7.45)
--- NOTE | 2019-01-14 16:44 | NUR ---
VSS. PT AWAKE, PLACED ON 4L O2 PER NC TO EAT DINNER. PT UPSET RE NO MED CHANGED. EXPLAINED TO PT THAT WITH THE CURRENT SCHEDULED DOSING HE SLEPT FOR 5HRS WITH MINIMAL INTERRUPTION.
--- NOTE | 2019-01-14 16:46 | NUR ---
COLOSTOMY DEVICE CHANGED. BED LINENS CHANGED DUE TO INCONTINENCE. NEW ATTENDS PLACED.
--- NOTE | 2019-01-14 16:55 | NUR ---
PT NEDICATED WITH SCHED OXYCODONE AND SOLUMEDROL. PT SIPPING CLEARS LIQUID.
[2019-01-15 04:18] LABS: BASOPHILS ABSOLUTE AUTO 0.01 K/mm3 (0.00-0.23); BASOPHILS PERCENT AUTO 0 % (0-2); EOSINOPHILS PERCENT AUTO 0 % (0-6); Hematocrit 31.8 % (37.0-53.0); Hemoglobin 9.8 g/dL (13.5-17.5); IMMATURE GRAN ABSOLUTE AUTO 0.07 K/mm3 (0.00-0.10); IMMATURE GRAN PERCENT AUTO 1 % (0-1); LYMPHOCYTES ABSOLUTE AUTO 0.65 K/mm3 (0.84-5.20); LYMPHOCYTES PERCENT AUTO 6 % (21-46); MONOCYTES ABSOLUTE AUTO 0.22 K/mm3 (0.16-1.47); MONOCYTES PERCENT AUTO 2 % (4-13); Mean Corpuscular HGB 30.3 pg (26.0-34.0); Mean Corpuscular HGB Conc 30.8 g/dL (31.5-36.5); Mean Platelet Volume 11.2 fL (9.1-12.4); NEUTROPHILS ABSOLUTE AUTO 10.46 K/mm3 (1.96-9.15); NEUTROPHILS PERCENT AUTO 92 % (41-73); Platelet Count 222 K/mm3 (150-400); RDW Coefficient Variation 13.5 % (11.7-14.2); RDW Standard Deviation 48.6 fL (35.1-46.3); Red Blood Cell Count 3.23 M/mm3 (4.30-5.90); White Blood Cell Count 11.41 K/mm3 (4.00-11.30)
[2019-01-15 04:19] LABS: Mean Corpuscular Volume 99 fL (80-100)
[2019-01-15 04:41] LABS: Albumin, Blood 2.6 g/dL (3.4-5.0); Anion Gap 1 mmol/L (6-16); Blood Urea Nitrogen 28 mg/dL (8-24); Bun/Creatinine Ratio 20.3 (12.0-20.0); CO2, Blood 37 mmol/L (21-32); Calcium, Blood 9.2 mg/dL (8.5-10.1); Chloride, Blood 102 mmol/L (98-108); Creatinine, Blood 1.38 mg/dL (0.60-1.20); Glomerular Filtration Rate 54 (60-); Glucose, Blood 133 mg/dL (70-99); Magnesium, Blood 2.5 mg/dL (1.6-2.4); Phosphorus, Blood 3.2 mg/dL (2.5-4.9); Potassium, Blood 4.6 mmol/L (3.5-5.5); Sodium, Blood 140 mmol/L (136-145); Troponin I <0.015 ng/mL (0.000-0.040)
[2019-01-15 05:26] LABS: PCO2 Arterial 62.6 mmHg (35-45); pH Blood Arterial 7.39 (7.35-7.45)
--- NOTE | 2019-01-15 06:10 | NUR ---
PT RESTS QUIETLY THROUGHOUT SHIFT, IS ABLE TO TURN SELF WELL HOWEVER HAS REQUIRED VERBAL DIRECTION FOR POSITION CHANGES. HAS TOLERATED BIPAP WELL THIS SHIFT WITH ONLY BRIEF BREAKS FOR ORAL CARE AND/OR PO FLUIDS AND MEDICATIONS, FIO2 WAS DECREASED PER RT TO 30%, PT MAINTAINING SATS WELL, LUNGS CONTINUE DIMINISHED THROUGHOUT. HRR, CONTINUES SINUS, PRESSURE MAINTAINING. ABD SOFT, NONTENDER, ACTIVE BOWEL TONES, NO BM THIS SHIFT, CONTINUES TO DENY N/V. VOID X 1 THIS SHIFT, 200 ML CLEAR YELLOW URINE. PT DOES COMPLAIN OF BACK PAIN 10/26 THIS AM, ROXICODONE ADMIN WILL MONITOR.
--- NOTE | 2019-01-15 06:55 | NUR ---
REPORT FROM PETER QUIROS. ASSUMED PT CARE. PT RESTING AT THIS TIME.
--- NOTE | 2019-01-15 07:20 | NUR ---
RESP THERAPY TO ROOM FOR TX AND EVAL OF BIPAP.
--- NOTE | 2019-01-15 07:40 | NUR ---
VSS. PT ASSISTED IN SITTING UP FOR BREAKFAST. ASSESSMENT CHARTED. BREAKFAST TRAY PROVIDED. PT STATES HE SLEPT WELL LAST NIGHT. MINIMAL COMPLAINTS. STATES BACK PAIN AND LEG PAIN ARE STILL 7/10. PLAN TO ADDRESS PAIN MANAGEMENT TODAY WITH PROVIDER.
--- NOTE | 2019-01-15 08:20 | NUR ---
PT MEDICATED WITH SCHEDULED MEDS PER EMAR. PT ATE 100% CLEAR LIQUID BREAKFAST. PT STATES HE CANT TOLERATE HIS PAIN ANYMORE. WILL DISCUSS MEDS WITH PROVIDER.
--- NOTE | 2019-01-15 09:05 | NUR ---
PT MEDICATED WITH 0900 DOSE OF OXY DESPITE NOC RN GIVING DOSE AT 0500.
--- NOTE | 2019-01-15 10:11 | NUR ---
PT STATES PAIN MUCH IMPROVED. BIPAP REAPPLIED. LIGHTS DIMMED, DOOR CLOSED.
--- NOTE | 2019-01-15 11:00 | NUR ---
BED BATH COMPLETE AT THIS TIME. LINENS CHANGED, NEW GOWN PROVIDED. LOTION APPLIED TO PTS LEGS, ARMS, TORSO AND BACK.
--- NOTE | 2019-01-15 11:54 | NUR ---
LUNCH TRAY PROVIDED. PT ON 4L O2 PER NC.
--- NOTE | 2019-01-15 13:15 | NUR ---
PT SITTING UP IN BED, SEEMS COMFORTABLE AT THIS TIME. NADN. PT ON 4L NC, SATS 98%.
--- NOTE | 2019-01-15 14:55 | NUR ---
DR ROBERTS TO ROOM. PLAN TO ADJUST PAIN MEDICATIONS, ADJUST NEB TX AND SOLUMEDROL AND POTENTIALLY LOOK INTO BED STATUS AT [facility] FOR DC [facility].
--- NOTE | 2019-01-15 16:11 | NUR ---
BIPAP PLACED PER PT REQUEST. PAIN MANAGED. LIGHTS DIMMED.
--- NOTE | 2019-01-15 18:52 | NUR ---
ASSISTED PT TO TOILET FOR POTENTIAL BOWEL MOVEMENT.
[2019-01-16 04:07] LABS: BASOPHILS ABSOLUTE AUTO 0.01 K/mm3 (0.00-0.23); BASOPHILS PERCENT AUTO 0 % (0-2); EOSINOPHILS PERCENT AUTO 0 % (0-6); Hematocrit 30.1 % (37.0-53.0); Hemoglobin 9.4 g/dL (13.5-17.5); IMMATURE GRAN ABSOLUTE AUTO 0.07 K/mm3 (0.00-0.10); IMMATURE GRAN PERCENT AUTO 1 % (0-1); LYMPHOCYTES ABSOLUTE AUTO 0.92 K/mm3 (0.84-5.20); LYMPHOCYTES PERCENT AUTO 7 % (21-46); MONOCYTES ABSOLUTE AUTO 0.26 K/mm3 (0.16-1.47); MONOCYTES PERCENT AUTO 2 % (4-13); Mean Corpuscular HGB 30.1 pg (26.0-34.0); Mean Corpuscular HGB Conc 31.2 g/dL (31.5-36.5); Mean Corpuscular Volume 97 fL (80-100); Mean Platelet Volume 11.1 fL (9.1-12.4); NEUTROPHILS PERCENT AUTO 90 % (41-73); Platelet Count 243 K/mm3 (150-400); RDW Coefficient Variation 13.6 % (11.7-14.2); RDW Standard Deviation 47.8 fL (35.1-46.3); Red Blood Cell Count 3.12 M/mm3 (4.30-5.90); White Blood Cell Count 13.06 K/mm3 (4.00-11.30)
[2019-01-16 04:24] LABS: Albumin, Blood 2.4 g/dL (3.4-5.0); Anion Gap 4 mmol/L (6-16); Blood Urea Nitrogen 33 mg/dL (8-24); Bun/Creatinine Ratio 25.6 (12.0-20.0); CO2, Blood 34 mmol/L (21-32); Calcium, Blood 8.9 mg/dL (8.5-10.1); Chloride, Blood 103 mmol/L (98-108); Creatinine, Blood 1.29 mg/dL (0.60-1.20); Glomerular Filtration Rate 59 (60-); Glucose, Blood 131 mg/dL (70-99); Phosphorus, Blood 2.7 mg/dL (2.5-4.9); Potassium, Blood 4.3 mmol/L (3.5-5.5); Sodium, Blood 141 mmol/L (136-145)
--- NOTE | 2019-01-16 06:06 | NUR ---
PT RESTS QUIETLY THROUGHOUT SHIFT, TOLERATES BIPAP WELL, MEDICATED X 1 WITH ROXICODONE FOR PAIN, PT RATED PAIN WELL CONTROLLED FOLLOWING ROXICODONE ADMINISTRATION BY DAY SHIFT RN JUST PRIOR TO SHIFT CHANGE. LUNG SOUNDS IMPROVED THROUGHOUT SHIFT HOWEVER PT WAS NOTED TO HAVE SATS DECREASE TO 85-86% WITH SLEEP THIS AM AT 30% FIO2 AND WAS INCREASED TO 40% FIO2 WITH GOOD IMPROVEMENT IN OXYGEN SATURATION NOTED. OTHERWISE NO ACUTE CHANGES.
--- NOTE | 2019-01-16 07:30 | NUR ---
Recieved report from Melida QUIROS. Patient in bed supine with HOB at 30 degrees. He has BIPAP in place 30/09 with rate 12 back up and FiO2 35% and sats low 90%'s. He is able to communicate his needs, he is oriented to self but not sure date and time. He repositions self in bed for comfort.
--- NOTE | 2019-01-16 09:30 | NUR ---
Physical therapy working with patient and tolerated well. He is asking for pain medication and will give about hour earlier to help with lower back and leg pain. He is slightly hypertensive systolic 170's. He tolerated meds with water. He has 18ga IV in RFA dressing intact and sire WNL's flushed and SL's after meds. He is starting Cl Liq breakfast and is on 4L O2 via NC.
--- NOTE | 2019-01-16 11:30 | NUR ---
Patient has been using urinal appropriately. He was up to bathroom with SBA and dangled at bedside. He remains hypertensive 170's systolic. He remains on 4L O2 via NC and sats low to mid 90%'s. Denies any current pain that needs intervention.
--- NOTE | 2019-01-16 13:30 | NUR ---
Patientr has been resting on 4L O2 and sats low to mid 90%"s. No significant changes with patient.
[2019-01-17 04:58] LABS: PCO2 Arterial 55.7 mmHg (35-45); pH Blood Arterial 7.42 (7.35-7.45)
--- NOTE | 2019-01-17 06:45 | NUR ---
PT RESTS QUIETLY THIS SHIFT, SLEEP STUDY COMPLETED. PT WAS AWAKE AND CALLED FOR PAIN MEDICATION AT 0140 THIS MORNING AND AGAIN AT 0600. AT 0600 HE EXPRESSES FRUSTRATION WITH PAIN CONTROL SINCE ADMISSION TO [facility] AND STATES THAT HIS PAIN HAS NOT BEEN CONTROLLED AND HE HAS NOT SLEPT. DISCUSSED HIS PAIN SCORE REPORTS EARLIER THIS SHIFT WELL STATEMENTS THAT HIS PAIN WAS WELL CONTROLLED AND HE RESPONDS "I JUST TOLD YOU THAT BECAUSE I DIDN'T WANT TO BOTHER YOU" DISCUSSED NECESSITY OF HONEST ANSWERS REGARDING PAIN CONTROL. REINFORCED THAT PT IS NOT A BOTHER AND THAT IT IS EXTREMELY NECESSARY TO PROVIDE ACCURATE POST PAIN SCORES OTHERWISE STAFF CANNOT KNOW THAT PT HAS HIGH PAIN LEVELS AND CONTINUED NEEDS FOR IMPROVED PAIN CONTROL. OTHERWISE NO ACUTE CHANGES THIS SHIFT.
--- NOTE | 2019-01-17 07:26 | NUR ---
Recieved report from Melida QUIROS. Patient is sitting up in bed with HOB at 30 degrees. He is getting updraft and is on 2L O2 via NC and sats 92%. He is c/o pain in lower back and mostly legs, will medicate per MAR. Patient has 20ga IV RFA dressing intact and site WNL's flushed and SL'd. He is up with SBA to bathroom. He denies any other needs except pain medication for 8/10 pain.
--- NOTE | 2019-01-17 10:05 | NUR ---
Patient stated that he would like to talk with SS and stated he wants to change DR's. He states has had a problem with EFM keeping his pain under control. SS came to visit and states she will communicate with EFM.He states pain currenly well relieved
[2019-01-17] MEDS ORDERED: META800 PO (13:07)
[2019-01-17] MEDS ORDERED: ALBU2.5V5 INH (13:08)
[2019-01-17] MEDS ORDERED: OMEPRAZOLE20 MG PO (13:08)
[2019-01-17] MEDS ORDERED: PRED10 PO (13:10)
--- NOTE | 2019-01-17 13:59 | NUR ---
Patient discharging back to [facility]. BIPAP to be delivered. Called report to Zandra QUIROS and faxed med list as well. Medicated patient for back and leg pain. Patient will be picked up at 1500
--- NOTE | 2019-01-17 15:39 | NUR ---
[facility] at 1530 by wheelchair and on 3L O2 via NC.
== END 2019-01-17 15:30 | DRG 189 ==
LOC: ER 00:41 → ICUW 04:28 → ICUE 04:35
PROVIDERS: Emergency Medicine; Family Medicine; Internal Medicine Gastroenterology; ADMIT Internal Medicine
PROC: 5A09357 Assistance with Respiratory Ventilation, Less than 24 Consecutive Hours, Continuous Positive Airway Pressure (ICD-10-PCS; principal; 2019-01-14)
DX: J96.21 Acute and chronic respiratory failure with hypoxia (principal); G92 Toxic encephalopathy; F11.20 Opioid dependence, uncomplicated; E87.2 Acidosis; I13.0 Hypertensive heart and chronic kidney disease with heart failure and stage 1 through stage 4 chronic kidney disease, or unspecified chronic kidney disease; I50.42 Chronic combined systolic (congestive) and diastolic (congestive) heart failure; N17.9 Acute kidney failure, unspecified; Z79.82 Long term (current) use of aspirin; J96.22 Acute and chronic respiratory failure with hypercapnia; Z99.81 Dependence on supplemental oxygen; G47.33 Obstructive sleep apnea (adult) (pediatric); I71.4 Abdominal aortic aneurysm, without rupture; Z87.891 Personal history of nicotine dependence; Z66 Do not resuscitate; F03.90 Unspecified dementia, unspecified severity, without behavioral disturbance, psychotic disturbance, mood disturbance, and anxiety; E86.9 Volume depletion, unspecified; J43.9 Emphysema, unspecified; J45.909 Unspecified asthma, uncomplicated; N18.9 Chronic kidney disease, unspecified
CPT/HCPCS: 36415; 36600; 71045; 80053; 80069; 82803; 83605; 83735; 83880; 84145; 84484; 85025; 87040; 93005; 93010; 94640; 94644; 94660; 94762; 96365; 96366; 96375; 97110; 97162; 97530; 99285-25; A9270; J0456; J0696; J1650; J2920; J2930; J3475; J7050

== ENCOUNTER → 2019-05-19 | Outpatient (CLI) | payer MEDICARE, OTHER ==
[~2019-05-19] MED LIST changes: +ACET325 PO; +ALBU2.5V5 INH; +BISA10S PR; +METO25ER PO; +OMEPRAZOLE20 MG PO; +OXYC10TA19 PO; +TIZA4 PO; +Tizanidine HCl2 MG PO
[2019-05-19 18:26] LABS: Protein, Urine Quantitative 16.1 mg/dL (0.0-11.9)
[2019-05-19 18:29] LABS: Microalbumin, Urine Quant. 19.8 mg/L (0.000-20.000)
== END | disposition home or self-care (01) ==
LOC: EDSTATUS 13:01 → LAB RH 16:00
PROVIDERS: Internal Medicine
DX: I12.9 Hypertensive chronic kidney disease with stage 1 through stage 4 chronic kidney disease, or unspecified chronic kidney disease (principal); N18.3 Chronic kidney disease, stage 3 (moderate)
CPT/HCPCS: 81050; 82043; 84156; 84300

== ENCOUNTER → 2019-07-06 | Outpatient (CLI) | payer MEDICARE, OTHER ==
[2019-07-06 09:25] LABS: BASOPHILS ABSOLUTE AUTO 0.07 K/mm3 (0.00-0.23); BASOPHILS PERCENT AUTO 1 % (0-2); EOSINOPHILS PERCENT AUTO 5 % (0-6); Hematocrit 42.5 % (37.0-53.0); Hemoglobin 12.3 g/dL (13.5-17.5); IMMATURE GRAN ABSOLUTE AUTO 0.03 K/mm3 (0.00-0.10); IMMATURE GRAN PERCENT AUTO 0 % (0-1); LYMPHOCYTES ABSOLUTE AUTO 1.77 K/mm3 (0.84-5.20); LYMPHOCYTES PERCENT AUTO 21 % (21-46); MONOCYTES ABSOLUTE AUTO 0.79 K/mm3 (0.16-1.47); MONOCYTES PERCENT AUTO 9 % (4-13); Mean Corpuscular HGB 30.4 pg (26.0-34.0); Mean Corpuscular HGB Conc 28.9 g/dL (31.5-36.5); Mean Corpuscular Volume 105 fL (80-100); Mean Platelet Volume 10.7 fL (9.1-12.4); NEUTROPHILS ABSOLUTE AUTO 5.37 K/mm3 (1.96-9.15); NEUTROPHILS PERCENT AUTO 64 % (41-73); Platelet Count 210 K/mm3 (150-400); RDW Coefficient Variation 13.2 % (11.7-14.2); Red Blood Cell Count 4.04 M/mm3 (4.30-5.90); White Blood Cell Count 8.43 K/mm3 (4.00-11.30)
[2019-07-06 09:38] LABS: Albumin, Blood 3.2 g/dL (3.4-5.0); Albumin/Globulin Ratio 0.9 (0.8-1.8); Bilirubin, Total 0.7 mg/dL (0.1-1.0); Bun/Creatinine Ratio 18.3 (12.0-20.0); Calcium, Blood 9.1 mg/dL (8.5-10.1); Creatinine, Blood 1.69 mg/dL (0.60-1.20); Globulin, Blood 3.4 g/dL (2.2-4.0); Potassium, Blood 4.1 mmol/L (3.5-5.5); Total Protein, Blood 6.6 g/dL (6.4-8.2)
== END | disposition home or self-care (01) ==
LOC: LAB RH 06:05 → EDSTATUS 11:10 → LAB RH 11:11
PROVIDERS: Internal Medicine
DX: N18.3 Chronic kidney disease, stage 3 (moderate) (principal)
CPT/HCPCS: 36415; 80053; 85025

== ENCOUNTER → 2019-07-28 | Outpatient (CLI) | payer MEDICARE, OTHER ==
[2019-07-28 13:32] LABS: BASOPHILS ABSOLUTE AUTO 0.04 K/mm3 (0.00-0.23); BASOPHILS PERCENT AUTO 1 % (0-2); EOSINOPHILS ABSOLUTE AUTO 0.14 K/mm3 (0.00-0.68); EOSINOPHILS PERCENT AUTO 2 % (0-6); Hematocrit 45.2 % (37.0-53.0); Hemoglobin 13.3 g/dL (13.5-17.5); IMMATURE GRAN ABSOLUTE AUTO 0.02 K/mm3 (0.00-0.10); IMMATURE GRAN PERCENT AUTO 0 % (0-1); LYMPHOCYTES ABSOLUTE AUTO 0.61 K/mm3 (0.84-5.20); LYMPHOCYTES PERCENT AUTO 7 % (21-46); MONOCYTES ABSOLUTE AUTO 0.41 K/mm3 (0.16-1.47); MONOCYTES PERCENT AUTO 5 % (4-13); Mean Corpuscular HGB 30.6 pg (26.0-34.0); Mean Corpuscular HGB Conc 29.4 g/dL (31.5-36.5); Mean Corpuscular Volume 104 fL (80-100); Mean Platelet Volume 11.1 fL (9.1-12.4); NEUTROPHILS ABSOLUTE AUTO 7.45 K/mm3 (1.96-9.15); NEUTROPHILS PERCENT AUTO 86 % (41-73); Platelet Count 205 K/mm3 (150-400); RDW Coefficient Variation 13.1 % (11.7-14.2); RDW Standard Deviation 49.7 fL (35.1-46.3); Red Blood Cell Count 4.34 M/mm3 (4.30-5.90); White Blood Cell Count 8.67 K/mm3 (4.00-11.30)
[2019-07-28 15:56] LABS: Albumin, Blood 3.3 g/dL (3.4-5.0); Bilirubin, Total 0.4 mg/dL (0.1-1.0); Calcium, Blood 9.6 mg/dL (8.5-10.1); Creatinine, Blood 1.87 mg/dL (0.60-1.20); Globulin, Blood 3.3 g/dL (2.2-4.0); Potassium, Blood 4.7 mmol/L (3.5-5.5); Total Protein, Blood 6.6 g/dL (6.4-8.2)
[2019-07-28 16:06] LABS: Bilirubin, Urine Neg (Neg); Blood, Urine Neg (Neg); Glucose Qualitative, Urine Neg (Neg); Ketones, Urine Neg (Neg); Leukocyte Esterase, Urine 1+ (Neg); Nitrite, Urine Neg (Neg); Protein, Urine Neg (Neg); Urobilinogen, Urine NORM (Normal)
[2019-07-28 16:15] LABS: Appearance, Urine Clear (Clear); Color, Urine Yellow (P-Yellow)
[2019-07-28 16:17] LABS: Bacteria Mod /hpf; Hyaline Casts 0-2 /lpf (0-2); Red Blood Cells, Urine 0-2 /hpf (0-2); Squamous Epithelial Cells Not Seen /hpf (Few)
== END | disposition home or self-care (01) ==
LOC: EDSTATUS 11:41 → LAB RH 12:36
PROVIDERS: Internal Medicine
DX: Z13.0 Encounter for screening for diseases of the blood and blood-forming organs and certain disorders involving the immune mechanism (principal); N39.0 Urinary tract infection, site not specified
CPT/HCPCS: 80053; 81001; 85025; 87086

== ENCOUNTER → 2019-07-31 | Outpatient (CLI) | payer MEDICARE, OTHER ==
[2019-07-31 17:55] LABS: Albumin, Blood 3.2 g/dL (3.4-5.0); Anion Gap 2 mmol/L (6-16); Blood Urea Nitrogen 29 mg/dL (8-24); Bun/Creatinine Ratio 14.7 (12.0-20.0); CO2, Blood 41 mmol/L (21-32); Calcium, Blood 9.1 mg/dL (8.5-10.1); Chloride, Blood 98 mmol/L (98-108); Creatinine, Blood 1.97 mg/dL (0.60-1.20); Glomerular Filtration Rate 36 (60-); Glucose, Blood 173 mg/dL (70-99); Phosphorus, Blood 2.9 mg/dL (2.5-4.9); Potassium, Blood 4.7 mmol/L (3.5-5.5); Sodium, Blood 141 mmol/L (136-145)
== END | disposition home or self-care (01) ==
LOC: LAB RH 10:15 → EDSTATUS 12:33
PROVIDERS: Internal Medicine Nephrology
DX: I12.9 Hypertensive chronic kidney disease with stage 1 through stage 4 chronic kidney disease, or unspecified chronic kidney disease (principal); N18.3 Chronic kidney disease, stage 3 (moderate); R94.4 Abnormal results of kidney function studies
CPT/HCPCS: 80069

== ENCOUNTER → 2019-08-07 | Outpatient (CLI) | payer MEDICARE, OTHER ==
[2019-08-07 11:49] LABS: Albumin, Blood 3.4 g/dL (3.4-5.0); Anion Gap 1 mmol/L (6-16); Blood Urea Nitrogen 29 mg/dL (8-24); Bun/Creatinine Ratio 17.2 (12.0-20.0); CO2, Blood 42 mmol/L (21-32); Calcium, Blood 9.2 mg/dL (8.5-10.1); Chloride, Blood 101 mmol/L (98-108); Creatinine, Blood 1.69 mg/dL (0.60-1.20); Glomerular Filtration Rate 43 (60-); Glucose, Blood 163 mg/dL (70-99); Phosphorus, Blood 3.1 mg/dL (2.5-4.9); Potassium, Blood 4.5 mmol/L (3.5-5.5); Sodium, Blood 144 mmol/L (136-145)
== END | disposition home or self-care (01) ==
LOC: LAB RH 10:17 → EDSTATUS 13:14
PROVIDERS: Internal Medicine Nephrology
DX: N18.3 Chronic kidney disease, stage 3 (moderate) (principal); D63.1 Anemia in chronic kidney disease
CPT/HCPCS: 80069; 85018

== ENCOUNTER → 2019-08-17 | Outpatient (CLI) | payer MEDICARE, OTHER ==
[2019-08-17 10:56] LABS: Albumin, Blood 3.5 g/dL (3.4-5.0); Anion Gap 4 mmol/L (6-16); Blood Urea Nitrogen 34 mg/dL (8-24); Bun/Creatinine Ratio 17.6 (12.0-20.0); CO2, Blood 40 mmol/L (21-32); Calcium, Blood 9.4 mg/dL (8.5-10.1); Chloride, Blood 98 mmol/L (98-108); Creatinine, Blood 1.93 mg/dL (0.60-1.20); Glomerular Filtration Rate 37 (60-); Glucose, Blood 124 mg/dL (70-99); Phosphorus, Blood 3.4 mg/dL (2.5-4.9); Sodium, Blood 142 mmol/L (136-145)
== END | disposition home or self-care (01) ==
LOC: LAB SHORT 09:19 → LAB 09:19
PROVIDERS: Internal Medicine Nephrology
DX: N18.3 Chronic kidney disease, stage 3 (moderate) (principal); D63.1 Anemia in chronic kidney disease
CPT/HCPCS: 80069; 85018

== ENCOUNTER → 2019-09-06 | Outpatient (CLI) | payer MEDICARE, OTHER ==
[2019-09-06 17:00] LABS: BASOPHILS ABSOLUTE AUTO 0.03 K/mm3 (0.00-0.23); BASOPHILS PERCENT AUTO 0 % (0-2); EOSINOPHILS ABSOLUTE AUTO 0.09 K/mm3 (0.00-0.68); EOSINOPHILS PERCENT AUTO 1 % (0-6); Hematocrit 39.6 % (37.0-53.0); Hemoglobin 11.6 g/dL (13.5-17.5); IMMATURE GRAN ABSOLUTE AUTO 0.07 K/mm3 (0.00-0.10); IMMATURE GRAN PERCENT AUTO 1 % (0-1); LYMPHOCYTES ABSOLUTE AUTO 0.74 K/mm3 (0.84-5.20); LYMPHOCYTES PERCENT AUTO 7 % (21-46); MONOCYTES ABSOLUTE AUTO 0.34 K/mm3 (0.16-1.47); MONOCYTES PERCENT AUTO 3 % (4-13); Mean Corpuscular HGB 29.8 pg (26.0-34.0); Mean Corpuscular HGB Conc 29.3 g/dL (31.5-36.5); Mean Corpuscular Volume 102 fL (80-100); Mean Platelet Volume 11.7 fL (9.1-12.4); NEUTROPHILS ABSOLUTE AUTO 9.44 K/mm3 (1.96-9.15); NEUTROPHILS PERCENT AUTO 88 % (41-73); Platelet Count 189 K/mm3 (150-400); RDW Standard Deviation 47.9 fL (35.1-46.3); Red Blood Cell Count 3.89 M/mm3 (4.30-5.90); White Blood Cell Count 10.71 K/mm3 (4.00-11.30)
[2019-09-06 17:16] LABS: International Normalized Ratio 0.91; Prothrombin Time Results 9.8 Sec (9.7-11.5)
[2019-09-06 17:27] LABS: Albumin, Blood 3.6 g/dL (3.4-5.0); Bilirubin, Total 0.3 mg/dL (0.1-1.0); Bun/Creatinine Ratio 16.7 (12.0-20.0); Calcium, Blood 9.5 mg/dL (8.5-10.1); Creatinine, Blood 1.86 mg/dL (0.60-1.20); Globulin, Blood 3.5 g/dL (2.2-4.0); Potassium, Blood 4.9 mmol/L (3.5-5.5); Total Protein, Blood 7.1 g/dL (6.4-8.2)
== END | disposition home or self-care (01) ==
LOC: EDSTATUS 11:47 → LAB RH 16:52
PROVIDERS: Internal Medicine
DX: I12.9 Hypertensive chronic kidney disease with stage 1 through stage 4 chronic kidney disease, or unspecified chronic kidney disease (principal); N18.9 Chronic kidney disease, unspecified; I71.4 Abdominal aortic aneurysm, without rupture
CPT/HCPCS: 80053; 82105; 85025; 85610

== ENCOUNTER → 2019-11-30 | Outpatient (CLI) | payer MEDICARE, OTHER ==
[2019-11-30 09:53] LABS: Albumin, Blood 3.6 g/dL (3.4-5.0); Anion Gap 3 mmol/L (6-16); Blood Urea Nitrogen 33 mg/dL (8-24); CO2, Blood 41 mmol/L (21-32); Calcium, Blood 9.6 mg/dL (8.5-10.1); Chloride, Blood 100 mmol/L (98-108); Creatinine, Blood 1.65 mg/dL (0.60-1.20); Glomerular Filtration Rate 44 (60-); Glucose, Blood 125 mg/dL (70-99); Phosphorus, Blood 3.4 mg/dL (2.5-4.9); Sodium, Blood 144 mmol/L (136-145)
== END | disposition home or self-care (01) ==
LOC: LAB RH 08:15 → EDSTATUS 15:21
PROVIDERS: Internal Medicine Nephrology
DX: N18.3 Chronic kidney disease, stage 3 (moderate) (principal); D63.1 Anemia in chronic kidney disease
CPT/HCPCS: 80069; 85018

== ENCOUNTER 2020-01-17 22:31 | Emergency (ER) | payer MEDICARE, OTHER | END 2020-01-18 00:37 | disposition home or self-care (01) | LOC: ER 22:31 | DX: N39.0 Urinary tract infection, site not specified (principal); R41.0 Disorientation, unspecified; J44.9 Chronic obstructive pulmonary disease, unspecified; F41.9 Anxiety disorder, unspecified; F32.9 Major depressive disorder, single episode, unspecified; I12.9 Hypertensive chronic kidney disease with stage 1 through stage 4 chronic kidney disease, or unspecified chronic kidney disease; N18.9 Chronic kidney disease, unspecified; Z79.82 Long term (current) use of aspirin; Z79.52 Long term (current) use of systemic steroids; Z79.899 Other long term (current) drug therapy ==

== ENCOUNTER → 2020-02-16 | Outpatient (CLI) | payer MEDICARE, OTHER ==
[~2020-02-16] MED LIST changes: +Keflex500 MG PO
[2020-02-16 09:34] LABS: BASOPHILS ABSOLUTE AUTO 0.04 K/mm3 (0.00-0.23); BASOPHILS PERCENT AUTO 0 % (0-2); EOSINOPHILS ABSOLUTE AUTO 0.46 K/mm3 (0.00-0.68); EOSINOPHILS PERCENT AUTO 5 % (0-6); Hematocrit 37.9 % (37.0-53.0); Hemoglobin 11.1 g/dL (13.5-17.5); IMMATURE GRAN ABSOLUTE AUTO 0.09 K/mm3 (0.00-0.10); IMMATURE GRAN PERCENT AUTO 1 % (0-1); LYMPHOCYTES ABSOLUTE AUTO 2.12 K/mm3 (0.84-5.20); LYMPHOCYTES PERCENT AUTO 21 % (21-46); MONOCYTES ABSOLUTE AUTO 0.77 K/mm3 (0.16-1.47); MONOCYTES PERCENT AUTO 8 % (4-13); Mean Corpuscular HGB 30.7 pg (26.0-34.0); Mean Corpuscular HGB Conc 29.3 g/dL (31.5-36.5); Mean Corpuscular Volume 105 fL (80-100); Mean Platelet Volume 10.8 fL (9.1-12.4); NEUTROPHILS PERCENT AUTO 66 % (41-73); Platelet Count 195 K/mm3 (150-400); RDW Coefficient Variation 13.2 % (11.7-14.2); RDW Standard Deviation 50.5 fL (35.1-46.3); Red Blood Cell Count 3.62 M/mm3 (4.30-5.90); White Blood Cell Count 10.28 K/mm3 (4.00-11.30)
[2020-02-16 10:18] LABS: Albumin, Blood 3.2 g/dL (3.4-5.0); Blood Urea Nitrogen 31 mg/dL (8-24); Bun/Creatinine Ratio 17.3 (12.0-20.0); Calcium, Blood 9.9 mg/dL (8.5-10.1); Chloride, Blood 102 mmol/L (98-108); Creatinine, Blood 1.79 mg/dL (0.60-1.20); Glomerular Filtration Rate 40 (60-); Glucose, Blood 108 mg/dL (70-99); Phosphorus, Blood 3.5 mg/dL (2.5-4.9); Potassium, Blood 4.2 mmol/L (3.5-5.5); Sodium, Blood 147 mmol/L (136-145)
[2020-02-16 10:40] LABS: CO2, Blood >45 mmol/L (21-32)
[2020-02-16 10:41] LABS: Anion Gap Unable to Calculate mmol/L (6-16)
== END | disposition home or self-care (01) ==
LOC: LAB RH 07:46 → EDSTATUS 14:00
PROVIDERS: Internal Medicine
DX: R73.09 Other abnormal glucose (principal); N18.32 Chronic kidney disease, stage 3b
CPT/HCPCS: 80069; 83036; 85025

== ENCOUNTER → 2020-03-29 | Outpatient (CLI) | payer MEDICARE, OTHER ==
[~2020-03-29] MED LIST changes: +ATROVENT HFA12.9 GM INH; +Amlodipine Bes2.5 MG PO; +BUME1 PO; +CENTRUM SILVER1 EAC2 PO; +GABA100 PO; +MIRALAX17 G3 PO; +MIRT15 PO; +RAYALDEE30 MCG PO; +VISBIOME 112.51 EACH PO
[2020-03-29 16:11] LABS: Albumin, Blood 3.2 g/dL (3.4-5.0); Anion Gap 5 mmol/L (6-16); Blood Urea Nitrogen 26 mg/dL (8-24); Bun/Creatinine Ratio 15.4 (12.0-20.0); CO2, Blood 40 mmol/L (21-32); Calcium, Blood 9.4 mg/dL (8.5-10.1); Chloride, Blood 97 mmol/L (98-108); Creatinine, Blood 1.69 mg/dL (0.60-1.20); Glomerular Filtration Rate 43 (60-); Glucose, Blood 123 mg/dL (70-99); Sodium, Blood 142 mmol/L (136-145)
== END ==
LOC: LAB 13:39
PROVIDERS: Internal Medicine Nephrology
DX: N18.31 Chronic kidney disease, stage 3a (principal); D63.1 Anemia in chronic kidney disease; E55.9 Vitamin D deficiency, unspecified; E78.00 Pure hypercholesterolemia, unspecified; R76.9 Abnormal immunological finding in serum, unspecified; R94.5 Abnormal results of liver function studies; R94.6 Abnormal results of thyroid function studies; N25.81 Secondary hyperparathyroidism of renal origin
CPT/HCPCS: 80069; 85018

== ENCOUNTER → 2020-04-22 | Outpatient (CLI) | payer MEDICARE, OTHER | LOC: LAB RH 07:57 | DX: K74.60 Unspecified cirrhosis of liver (principal) | CPT/HCPCS: 82140 ==

== ENCOUNTER → 2020-07-22 | Outpatient (CLI) | payer MEDICARE, OTHER ==
[2020-07-22 15:03] LABS: Albumin, Blood 3.4 g/dL (3.4-5.0); Anion Gap 1 mmol/L (6-16); Blood Urea Nitrogen 26 mg/dL (8-24); Bun/Creatinine Ratio 14.6 (12.0-20.0); CO2, Blood 41 mmol/L (21-32); Calcium, Blood 9.6 mg/dL (8.5-10.1); Chloride, Blood 102 mmol/L (98-108); Creatinine, Blood 1.78 mg/dL (0.60-1.20); Glomerular Filtration Rate 40 (60-); Glucose, Blood 156 mg/dL (70-99); Phosphorus, Blood 3.1 mg/dL (2.5-4.9); Potassium, Blood 4.4 mmol/L (3.5-5.5); Sodium, Blood 144 mmol/L (136-145)
== END | disposition home or self-care (01) ==
LOC: EDSTATUS 09:53 → LAB RH 10:52
PROVIDERS: Internal Medicine
DX: E78.00 Pure hypercholesterolemia, unspecified (principal); E55.9 Vitamin D deficiency, unspecified; N18.30 Chronic kidney disease, stage 3 unspecified
CPT/HCPCS: 80069; 85014; 85018

== ENCOUNTER → 2020-07-24 | Outpatient (CLI) | payer MEDICARE, OTHER ==
[2020-07-24 12:27] LABS: BASOPHILS ABSOLUTE AUTO 0.07 K/mm3 (0.00-0.23); BASOPHILS PERCENT AUTO 1 % (0-2); EOSINOPHILS ABSOLUTE AUTO 0.38 K/mm3 (0.00-0.68); EOSINOPHILS PERCENT AUTO 5 % (0-6); Hematocrit 38.2 % (37.0-53.0); IMMATURE GRAN ABSOLUTE AUTO 0.02 K/mm3 (0.00-0.10); IMMATURE GRAN PERCENT AUTO 0 % (0-1); LYMPHOCYTES PERCENT AUTO 21 % (21-46); MONOCYTES ABSOLUTE AUTO 0.62 K/mm3 (0.16-1.47); MONOCYTES PERCENT AUTO 7 % (4-13); Mean Corpuscular HGB 29.8 pg (26.0-34.0); Mean Corpuscular HGB Conc 28.8 g/dL (31.5-36.5); Mean Corpuscular Volume 104 fL (80-100); Mean Platelet Volume 11.2 fL (9.1-12.4); NEUTROPHILS ABSOLUTE AUTO 5.53 K/mm3 (1.96-9.15); NEUTROPHILS PERCENT AUTO 66 % (41-73); Platelet Count 205 K/mm3 (150-400); RDW Coefficient Variation 13.5 % (11.7-14.2); RDW Standard Deviation 51.3 fL (35.1-46.3); Red Blood Cell Count 3.69 M/mm3 (4.30-5.90); White Blood Cell Count 8.42 K/mm3 (4.00-11.30)
[2020-07-24 13:26] LABS: Albumin, Blood 2.9 g/dL (3.4-5.0); Albumin/Globulin Ratio 0.9 (0.8-1.8); Bilirubin, Total 0.5 mg/dL (0.1-1.0); Bun/Creatinine Ratio 15.7 (12.0-20.0); Creatinine, Blood 1.78 mg/dL (0.60-1.20); Globulin, Blood 3.1 g/dL (2.2-4.0); Potassium, Blood 4.1 mmol/L (3.5-5.5)
[2020-07-24 13:31] LABS: Albumin, Blood 2.8 g/dL (3.4-5.0); Anion Gap 4 mmol/L (6-16); Blood Urea Nitrogen 27 mg/dL (8-24); Bun/Creatinine Ratio 15.3 (12.0-20.0); CO2, Blood 41 mmol/L (21-32); Calcium, Blood 8.8 mg/dL (8.5-10.1); Chloride, Blood 102 mmol/L (98-108); Creatinine, Blood 1.77 mg/dL (0.60-1.20); Glomerular Filtration Rate 40 (60-); Glucose, Blood 110 mg/dL (70-99); Potassium, Blood 4.1 mmol/L (3.5-5.5); Sodium, Blood 147 mmol/L (136-145)
[2020-07-24 15:24] LABS: International Normalized Ratio 0.93
== END | disposition home or self-care (01) ==
LOC: EDSTATUS 09:54 → LAB RH 10:14
PROVIDERS: Internal Medicine; Internal Medicine Nephrology
DX: I12.9 Hypertensive chronic kidney disease with stage 1 through stage 4 chronic kidney disease, or unspecified chronic kidney disease (principal); N18.30 Chronic kidney disease, stage 3 unspecified; D63.1 Anemia in chronic kidney disease; N25.81 Secondary hyperparathyroidism of renal origin; I71.4 Abdominal aortic aneurysm, without rupture; J96.11 Chronic respiratory failure with hypoxia; E55.9 Vitamin D deficiency, unspecified; E78.00 Pure hypercholesterolemia, unspecified; R76.9 Abnormal immunological finding in serum, unspecified; R94.5 Abnormal results of liver function studies
CPT/HCPCS: 80053; 80069; 83970; 84100; 85018; 85025; 85610

== ENCOUNTER → 2020-07-30 | Outpatient (CLI) | payer MEDICARE, OTHER ==
[2020-07-30 11:09] LABS: Albumin, Blood 3.3 g/dL (3.4-5.0); Anion Gap 1 mmol/L (6-16); Blood Urea Nitrogen 26 mg/dL (8-24); CO2, Blood 42 mmol/L (21-32); Calcium, Blood 9.5 mg/dL (8.5-10.1); Chloride, Blood 103 mmol/L (98-108); Creatinine, Blood 1.73 mg/dL (0.60-1.20); Glomerular Filtration Rate 42 (60-); Glucose, Blood 186 mg/dL (70-99); Phosphorus, Blood 2.8 mg/dL (2.5-4.9); Sodium, Blood 146 mmol/L (136-145)
== END | disposition home or self-care (01) ==
LOC: EDSTATUS 09:55 → LAB RH 10:44
PROVIDERS: Internal Medicine Nephrology
DX: N25.81 Secondary hyperparathyroidism of renal origin (principal); N18.30 Chronic kidney disease, stage 3 unspecified; E78.00 Pure hypercholesterolemia, unspecified
CPT/HCPCS: 80069; 85014

== ENCOUNTER → 2020-08-06 | Outpatient (CLI) | payer MEDICARE, OTHER ==
[2020-08-06 14:12] LABS: Hematocrit 44.1 % (37.0-53.0); Hemoglobin 12.6 g/dL (13.5-17.5)
[2020-08-06 14:31] LABS: Albumin, Blood 3.6 g/dL (3.4-5.0); Blood Urea Nitrogen 26 mg/dL (8-24); Bun/Creatinine Ratio 13.2 (12.0-20.0); Calcium, Blood 9.7 mg/dL (8.5-10.1); Chloride, Blood 101 mmol/L (98-108); Creatinine, Blood 1.97 mg/dL (0.60-1.20); Glomerular Filtration Rate 36 (60-); Glucose, Blood 125 mg/dL (70-99); Phosphorus, Blood 3.3 mg/dL (2.5-4.9); Potassium, Blood 4.9 mmol/L (3.5-5.5); Sodium, Blood 147 mmol/L (136-145)
[2020-08-06 14:44] LABS: Anion Gap 4 mmol/L (6-16); CO2, Blood 42 mmol/L (21-32)
== END | disposition home or self-care (01) ==
LOC: EDSTATUS 09:56 → LAB RH 13:58
PROVIDERS: Internal Medicine Nephrology
DX: N18.30 Chronic kidney disease, stage 3 unspecified (principal); D63.1 Anemia in chronic kidney disease; N25.81 Secondary hyperparathyroidism of renal origin; E55.9 Vitamin D deficiency, unspecified; E78.00 Pure hypercholesterolemia, unspecified; R76.9 Abnormal immunological finding in serum, unspecified; R94.5 Abnormal results of liver function studies
CPT/HCPCS: 80069; 85014; 85018

== ENCOUNTER → 2020-09-19 | Outpatient (CLI) | payer MEDICARE, OTHER ==
[2020-09-19 14:38] LABS: Anion Gap 1 mmol/L (6-16); Blood Urea Nitrogen 24 mg/dL (8-24); Bun/Creatinine Ratio 14.4 (12.0-20.0); CO2, Blood 41 mmol/L (21-32); Calcium, Blood 9.4 mg/dL (8.5-10.1); Chloride, Blood 102 mmol/L (98-108); Creatinine, Blood 1.67 mg/dL (0.60-1.20); Glomerular Filtration Rate 43 (60-); Glucose, Blood 196 mg/dL (70-99); Phosphorus, Blood 3.1 mg/dL (2.5-4.9); Potassium, Blood 4.2 mmol/L (3.5-5.5); Sodium, Blood 144 mmol/L (136-145)
== END ==
LOC: EDSTATUS 09:52 → LAB RH 12:09
PROVIDERS: Internal Medicine
DX: I12.9 Hypertensive chronic kidney disease with stage 1 through stage 4 chronic kidney disease, or unspecified chronic kidney disease (principal); N18.2 Chronic kidney disease, stage 2 (mild); D63.1 Anemia in chronic kidney disease; Z79.82 Long term (current) use of aspirin
CPT/HCPCS: 80069; 85018

== ENCOUNTER 2020-10-16 04:03 | Inpatient (IN) | payer MEDICARE, OTHER ==
[~2020-10-16] VITALS: Ht 172.7 cm; Wt 76.5 kg
[~2020-10-16 04:03] MED LIST changes: -ATROVENT HFA12.9 GM INH; -Amlodipine Bes2.5 MG PO; -BUME1 PO; -CENTRUM SILVER1 EAC2 PO; -GABA100 PO; -MIRALAX17 G3 PO; -MIRT15 PO; -RAYALDEE30 MCG PO; -VISBIOME 112.51 EACH PO
[2020-10-16 04:30] LABS: BASOPHILS ABSOLUTE AUTO 0.06 K/mm3 (0.00-0.23); BASOPHILS PERCENT AUTO 1 % (0-2); EOSINOPHILS ABSOLUTE AUTO 0.41 K/mm3 (0.00-0.68); EOSINOPHILS PERCENT AUTO 3 % (0-6); Hematocrit 29.2 % (37.0-53.0); Hemoglobin 8.9 g/dL (13.5-17.5); IMMATURE GRAN ABSOLUTE AUTO 0.08 K/mm3 (0.00-0.10); IMMATURE GRAN PERCENT AUTO 1 % (0-1); LYMPHOCYTES ABSOLUTE AUTO 3.16 K/mm3 (0.84-5.20); LYMPHOCYTES PERCENT AUTO 26 % (21-46); MONOCYTES ABSOLUTE AUTO 1.03 K/mm3 (0.16-1.47); MONOCYTES PERCENT AUTO 8 % (4-13); Mean Corpuscular HGB 31.2 pg (26.0-34.0); Mean Corpuscular HGB Conc 30.5 g/dL (31.5-36.5); Mean Corpuscular Volume 103 fL (80-100); Mean Platelet Volume 10.7 fL (9.1-12.4); NEUTROPHILS ABSOLUTE AUTO 7.62 K/mm3 (1.96-9.15); NEUTROPHILS PERCENT AUTO 62 % (41-73); Platelet Count 166 K/mm3 (150-400); RDW Coefficient Variation 12.3 % (11.7-14.2); RDW Standard Deviation 45.7 fL (35.1-46.3); Red Blood Cell Count 2.85 M/mm3 (4.30-5.90); White Blood Cell Count 12.36 K/mm3 (4.00-11.30)
[2020-10-16 04:54] LABS: Albumin, Blood 2.8 g/dL (3.4-5.0); Bilirubin, Total 0.2 mg/dL (0.1-1.0); Bun/Creatinine Ratio 21.9 (12.0-20.0); Calcium, Blood 8.6 mg/dL (8.5-10.1); Creatinine, Blood 1.69 mg/dL (0.60-1.20); Globulin, Blood 2.8 g/dL (2.2-4.0); Magnesium, Blood 2.1 mg/dL (1.6-2.4); Potassium, Blood 4.1 mmol/L (3.5-5.5); Total Protein, Blood 5.6 g/dL (6.4-8.2)
[2020-10-16] MEDS ORDERED: Amlodipine Bes2.5 MG PO (05:03)
[2020-10-16] MEDS ORDERED: BUME1 PO (05:04)
[2020-10-16 05:05] LABS: International Normalized Ratio 0.97; Prothrombin Time Results 10.5 Sec (9.7-11.5)
[2020-10-16] MEDS ORDERED: CENTRUM SILVER1 EAC2 PO (05:05)
[2020-10-16] MEDS ORDERED: MIRT15 PO (05:06)
[2020-10-16] MEDS ORDERED: RAYALDEE30 MCG PO (05:08)
[2020-10-16] MEDS ORDERED: GABA100 PO (05:09)
[2020-10-16] MEDS ORDERED: TIZA4 PO (05:11)
[2020-10-16] MEDS ORDERED: ATROVENT HFA12.9 GM INH (05:13)
--- NOTE | 2020-10-16 10:57 | NUR ---
Pt arrived from ER and he is a/o x 4 and very pleasant. Pt reports that he was living in his home until recently when he started staying at [facility]. He is on 2.5 L continuously r/t his COPD. He gets SOB with movement and reports that as his baseline. AM care was done upon arrival. He reports his last BM was on his arrival to the ER and it was "bright red". Pt is able to make his needs known and has a urinal at the bedside. His call light is in reach and he verbalizes an understanding of its use.
[2020-10-16 11:00] LABS: SARS-Cov-2 (COVID-19) PCR, MMC NEGATIVE (NEGATIVE)
[2020-10-16 11:20] LABS: Hematocrit 26.5 % (37.0-53.0); Hemoglobin 8.1 g/dL (13.5-17.5)
--- NOTE | 2020-10-16 14:10 | NUR ---
Pt was transported to day surgery by Rn for scheduled colonoscopy.
--- NOTE | 2020-10-16 14:20 | NUR ---
INTO SDS VIA GURNEY FROM PCU ROOM. History, Chart, Medications and Allergies reviewed before start of procedure.Patient confirms NPO status and agrees with scheduled surgery.2 TAP WATER ENEMAS PER FLOOR RN PT NOT CLEAR. FLOOR RN NOTIFIED DR. WALTER WHO WISHES TO CONTINUE WITH PROCEDURE. O2 3L NC. DIMINISHED LUNG SOUNDS T/O
--- NOTE | 2020-10-16 14:31 | NUR ---
10/16/20 1431 Nicole Briggs History, Chart, Medications and Allergies reviewed before start of procedure.Patient confirms NPO status and agrees with scheduled PROCEDURE. MONITOR INTACT WITH CONTINUOUS PULSE OXIMETRY AND INTERMITTENT BP.O2 VIA N/C INTACT THROUGHOUT SEDATION/PROCEDURE. See Anesthesia record.
--- NOTE | 2020-10-16 15:12 | NUR ---
pt returned from day surgery. per report there is no active bleeding and dr saab believes that pt has diverticulitis. pt is a/o at baseline.
[2020-10-16 16:58] LABS: Hematocrit 23.9 % (37.0-53.0); Hemoglobin 7.4 g/dL (13.5-17.5)
[2020-10-16 17:40] LABS: Campylobacter Sp Not Detected (NOT DETECT)
[2020-10-16 17:41] LABS: Adenovirus F 40/41 Not Detected (NOT DETECT); Astrovirus Not Detected (NOT DETECT); Cryptosporidium Not Detected (NOT DETECT); Cyclospora Cayetanensis Not Detected (NOT DETECT); E. Coli O157 Not Detected (NOT DETECT); Entamoeba Histolytica Not Detected (NOT DETECT); Enteroaggregative E. coli-EAEC Not Detected (NOT DETECT); Enteropathogenic E. coli-EPEC Not Detected (NOT DETECT); Enterotoxigenic E. coli-ETEC Not Detected (NOT DETECT); Giardia Lamblia Not Detected (NOT DETECT); Norovirus GI/GII Not Detected (NOT DETECT); Plesiomonas Shigelloides Not Detected (NOT DETECT); Rotavirus A Not Detected (NOT DETECT); Salmonella Sp Not Detected (NOT DETECT); Sapovirus Not Detected (NOT DETECT); Shiga Toxin-prod E. coli-STEC Not Detected (NOT DETECT); Shigella/Enteroin E. coli-EIEC Not Detected (NOT DETECT); Vibrio Cholerae Not Detected (NOT DETECT); Vibrio Sp Not Detected (NOT DETECT); Yersinia Enterocolitica Not Detected (NOT DETECT)
--- NOTE | 2020-10-16 18:09 | NUR ---
Shift Summary Pt is A/oX 4 but with more time spent with him he does need time to remember certain details. He is very pleasant and was anxious about the GIB but after Dr Burch reported that he had no active bleeding he reported feeling much better. After his 1630 labs, his HGB was within the range for the order from Dr Zapata to infuse 1 unit of RBCs, blood bank has been notified. vss. pT remains on 3 lpm via nc and O2 Sats are in the high 90's. Dr Zapata called back this davie for an update on the pt and ordered labs for tonight and PT/OT eval. Pt is resting in bed eating dinner. He calls appropriately and uses the bedside commode for toileting.
[2020-10-16 22:29] LABS: Hematocrit 25.7 % (37.0-53.0); Hemoglobin 8.1 g/dL (13.5-17.5)
--- NOTE | 2020-10-17 05:37 | NUR ---
SHIFT SUMMARY PATIENT IS ALERT AND ORIENTED X SELF, AND FOLLOWING DIRECTIONS. PATIENT UNAWARE OF THE YEAR OR WHERE EXACTLY HE IS. FORGETFULL AND NEEDS CONSTANT REORIENTING. Q2 HOURS REPOSITIONING. 02 SATS 96% ON 3L VIA NC. MEDICATED FOR LOWER BACK PAIN PER EMAR. 1 UNIT PRBCs TRANSFUSED AT BEGINNING OF SHIFT DUE TO Hgb <8. VSS, NO ACUTE CHANGES. CALL LIGHT IN REACH. BED ALARM ON.
--- NOTE | 2020-10-17 10:42 | NUR ---
PHYSICIAN NOTIFIED PHYSICIAN NOTIFIED OF NO AM LAB WORK. ORDERS PUT IN PER PHYSICIAN, SEE EHR.
[2020-10-17 11:13] LABS: BASOPHILS ABSOLUTE AUTO 0.07 K/mm3 (0.00-0.23); BASOPHILS PERCENT AUTO 1 % (0-2); EOSINOPHILS ABSOLUTE AUTO 0.37 K/mm3 (0.00-0.68); EOSINOPHILS PERCENT AUTO 4 % (0-6); Hematocrit 29.4 % (37.0-53.0); Hemoglobin 9.2 g/dL (13.5-17.5); IMMATURE GRAN ABSOLUTE AUTO 0.09 K/mm3 (0.00-0.10); IMMATURE GRAN PERCENT AUTO 1 % (0-1); LYMPHOCYTES ABSOLUTE AUTO 1.63 K/mm3 (0.84-5.20); LYMPHOCYTES PERCENT AUTO 16 % (21-46); MONOCYTES ABSOLUTE AUTO 0.91 K/mm3 (0.16-1.47); MONOCYTES PERCENT AUTO 9 % (4-13); Mean Corpuscular HGB 31.6 pg (26.0-34.0); Mean Corpuscular HGB Conc 31.3 g/dL (31.5-36.5); Mean Corpuscular Volume 101 fL (80-100); Mean Platelet Volume 10.5 fL (9.1-12.4); NEUTROPHILS ABSOLUTE AUTO 7.05 K/mm3 (1.96-9.15); NEUTROPHILS PERCENT AUTO 70 % (41-73); Platelet Count 164 K/mm3 (150-400); RDW Coefficient Variation 13.6 % (11.7-14.2); RDW Standard Deviation 49.9 fL (35.1-46.3); Red Blood Cell Count 2.91 M/mm3 (4.30-5.90); White Blood Cell Count 10.12 K/mm3 (4.00-11.30)
[2020-10-17 11:32] LABS: Albumin, Blood 2.8 g/dL (3.4-5.0); Bilirubin, Total 0.3 mg/dL (0.1-1.0); Calcium, Blood 8.5 mg/dL (8.5-10.1); Creatinine, Blood 1.47 mg/dL (0.60-1.20); Globulin, Blood 2.8 g/dL (2.2-4.0); Potassium, Blood 3.9 mmol/L (3.5-5.5); Total Protein, Blood 5.6 g/dL (6.4-8.2)
--- NOTE | 2020-10-17 12:03 | NUR ---
STATUS CHANGE PHYSICIAN ORDER TO HAVE PT MEDICAL STATUS NO TELE
--- NOTE | 2020-10-17 13:47 | NUR ---
REPORT GIVEN REPORT GIVEN TO ROOM 343 NURSE. PT TO BE TRANSPORTED BY WHEELCHAIR BY [employer] WITH BELONGINGS AND CHART.
--- NOTE | 2020-10-17 17:35 | NUR ---
Update 10/17/20: Visited pt. and sister this afternoon. He is requesting [facility] for wound care once discharged. I advised him that I would pass that information on to Dr. Zapata and we can arrange for [facility]. He has multiple INRs ordered to complete over the next week prior to biopsy. Pt. will need transportation via wheelchair van at time of discharge as well.
--- NOTE | 2020-10-17 17:41 | NUR ---
PT TX FROM PCU 16- ARRIVED AT 1400 VIA WC- SBA TO BSC TO VOID THAN TO BED. ALERT TO SELF, PLACE AND CIRCUMSTANCE. ORIENTED TO ROOM SET UP, CALL LIGHT AND SAFETY.
--- NOTE | 2020-10-17 19:15 | NUR ---
ASSUMED CARE RECEIVED REPORT FROM ISHAAN DELUCA. PT RESTING, IN NAD. NO ACUTE NEEDS ASSESSED AT THIS TIME. CALL LIGHT, POSSESSIONS IN REACH, BED IN LOW AND LOCKED POSITION WITH ALARMS ON.
--- NOTE | 2020-10-17 19:20 | NUR ---
SUMMARY- PT A/O X3, DECREASED STM, FREQ CALL LIGHT ABOUT THE SAME ISSUES, CANT REMEMBER WHAT STAFF HAVE TOLD HIM. USES CALL LIGHT FOR ASSIST TO BSC TO VOID. ON ONE OCCASION DESATTED TO 80% DURING ACTIVITY. USES O2 AT 2L. TOLERATING REG DIET AND FLUIDS. NO STOOL TODAY.
--- NOTE | 2020-10-18 03:30 | NUR ---
THIS NURSE NOTIFIED BY TIRE MAINTENANCE TECHNICIAN OF PT'S HR CONVERTING INTO AFIB, AVERAGING IN THE 80'S. PT ASLEEP, IN NAD. WILL CONTINUE TO MONITOR.
[2020-10-18 07:13] LABS: HBSAG SCREEN Negative (Negative); HEP B CORE AB, TOT Negative (Negative); HEP C VIRUS AB <0.1 (0.0-0.9)
--- NOTE | 2020-10-18 07:36 | NUR ---
MAINFRAME SYSTEMS ADMINISTRATOR SUMMARY PT ASLEEP, IN NAD. VS REVIEWED,WNL. AFEBRILE THIS AM, LOW GRADE TEMPS IN THE EVENING. PT CONTINUES TO BE IN AFIB, HR HAS BEEN AVERAGING IN THE 110'S. PT ASYMPTOMATIC. NO OTHER ACUTE CHANGES TO REPORT OVERNIGHT. HAS BEEN SLEEPING T/O. SBA TO BSC. PAIN MANAGED WITH MEDS PER EMAR. NO ACUTE NEEDS ASSESSED AT THIS TIME. DENIES NEEDS. CALL LIGHT, POSSESSIONS IN REACH, BED IN LOW AND LOCKED POSITION WITH ALARMS ON. REPORT GIVEN TO CHHAYA Phipps RN.
--- NOTE | 2020-10-18 11:01 | NUR ---
TELE EVENTS THIS RN RECEIVED REPORT THAT PT TELE WAS RUNNING AFIB IN THE 150S, THEN SUSTAINING 130-140S. THIS RN CHECKED ON PT WHO DENIED SYMPTOMS. THIS RN NOTIFIED DR. WISEMAN OF EVENT DURING ROUNDS. AFTER AM MEDICATIONS, PT TELE IS NOW NS 92. THIS RN WILL CONTINUE TO MONITOR PT STATUS.
[2020-10-18 11:31] LABS: BASOPHILS ABSOLUTE AUTO 0.04 K/mm3 (0.00-0.23); BASOPHILS PERCENT AUTO 1 % (0-2); EOSINOPHILS ABSOLUTE AUTO 0.33 K/mm3 (0.00-0.68); EOSINOPHILS PERCENT AUTO 4 % (0-6); Hematocrit 29.2 % (37.0-53.0); Hemoglobin 9.1 g/dL (13.5-17.5); IMMATURE GRAN ABSOLUTE AUTO 0.05 K/mm3 (0.00-0.10); IMMATURE GRAN PERCENT AUTO 1 % (0-1); LYMPHOCYTES PERCENT AUTO 16 % (21-46); MONOCYTES ABSOLUTE AUTO 0.69 K/mm3 (0.16-1.47); MONOCYTES PERCENT AUTO 9 % (4-13); Mean Corpuscular HGB 31.5 pg (26.0-34.0); Mean Corpuscular HGB Conc 31.2 g/dL (31.5-36.5); Mean Corpuscular Volume 101 fL (80-100); Mean Platelet Volume 10.5 fL (9.1-12.4); NEUTROPHILS ABSOLUTE AUTO 5.53 K/mm3 (1.96-9.15); NEUTROPHILS PERCENT AUTO 70 % (41-73); Platelet Count 163 K/mm3 (150-400); RDW Coefficient Variation 13.2 % (11.7-14.2); RDW Standard Deviation 47.9 fL (35.1-46.3); Red Blood Cell Count 2.89 M/mm3 (4.30-5.90); White Blood Cell Count 7.94 K/mm3 (4.00-11.30)
--- NOTE | 2020-10-18 11:48 | NUR ---
10/18/20- pt to be d/c on Wednesday back to [facility] where he lives. Spoke with Mireya at [facility] and pt had elevated temp in the last 24 hrs, so he will not be able to go until Wednesday. Dr. Zapata and floor nurse have been notified. -ritchiew
--- NOTE | 2020-10-18 12:54 | NUR ---
RECEIVED CALL FROM PROCUREMENT ASSISTANT, PT IN 140S-150S AFIB. PT IS ON BSC STRAINING TO HAVE BM, SLIGHTLY DIZZY. DR WISEMAN CALLED AND INFORMED. [facility] FOR NOW
--- NOTE | 2020-10-18 17:08 | NUR ---
SHIFT SUMMARY PT IS AOX2-3. PT MEDICATED FOR PAIN X1. PT HAD X2 AFIB WITH HR IN THE 150S PER GROUND HAND-SEE NOTES. PT AM AFIB EPISODE RESOLVED WITH AM MEDS. AFIB IN THE JAIRO WAS CHECKED WITH APICAL PULSE FOUND TO BE 97. PT IS SBA IN ROOM. PT APPETITE IS GOOD. PT DID NOT HAVE ANY PROCEDURES DONE TODAY. PT DID NOT HAVE VISITORS THIS SHIFT. PLAN IS FOR PT TO POTENTIALLY DC TOMORROW. PT IS IN CHAIR, CALL LIGHT IN REACH, BED IN LOW POSITION.
--- NOTE | 2020-10-18 19:15 | NUR ---
ASSUMED CARE. AOX2-3, VERY FORGETFUL AT TIMES. WENT OFF ABOUT PAIN MEDICATION AND HOW THEY DON'T WORK FOR HIM, STATES HE HAS BEEN ON ALMOST EVERYTHING AND NOTHING IS WORKING ANY MORE. DISCUSSED HOW PEOPLE BUILD TOLERANCE. REPORTED HAVING SOB AND DIFFICULTY BREATHING, STATES HE CAN NOT CATCH HIS BREATH. CALLED RT FOR BREATHING TREATMENT. LUNG SOUNDS ARE VERY TIGHT AND DIMINISHED, NO COUGH OR CONGESTION NOTED. SATS 98% ON 2 LITERS. HR IN THE 70'S. MILD EDEMA IN THE LEGS. DENIES ANY CONCERNS AT THIS TIME, CALL LIGHT IN REACH.
--- NOTE | 2020-10-18 19:50 | NUR ---
PATIENT REPORTS CONTINUED DIFFICULTY IN BREATHING, "I FEEL I CAN'T BREATH" RESPIRATIONS WERE SLIGHTLY FAST AT 24. ASSISTED HIM TO BSC AND BACK TO BED. BY THAT TIME RT ARRIVED TO GIVE BREATHING TREATMENT. BED ALARM PLACED BACK ON, CALL LIGHT GIVEN.
--- NOTE | 2020-10-18 20:25 | NUR ---
REPORTS BREATHING A LOT BETTER. DOES NOT FEEL LIKE HE CAN'T BREATH THAT HAS RESOLVED. LUNG HAVE OPENED UP MORE. MEDICATED WITH PM MEDICATIONS. GAVE LEMONAIDE. NO OTHER CONCERNS TO NOTE. FALL PROTOCOL IN PLACE.
--- NOTE | 2020-10-18 22:00 | NUR ---
BILL IS RESTING IN UP RIGHT POSITION, RESP ARE EVEN AND UNLABORED. WILL CONTINUE TO MONITOR.
[2020-10-19 05:31] LABS: BASOPHILS ABSOLUTE AUTO 0.05 K/mm3 (0.00-0.23); BASOPHILS PERCENT AUTO 1 % (0-2); EOSINOPHILS ABSOLUTE AUTO 0.38 K/mm3 (0.00-0.68); EOSINOPHILS PERCENT AUTO 4 % (0-6); Hematocrit 27.9 % (37.0-53.0); Hemoglobin 8.5 g/dL (13.5-17.5); IMMATURE GRAN ABSOLUTE AUTO 0.05 K/mm3 (0.00-0.10); IMMATURE GRAN PERCENT AUTO 1 % (0-1); LYMPHOCYTES PERCENT AUTO 19 % (21-46); MONOCYTES ABSOLUTE AUTO 0.82 K/mm3 (0.16-1.47); MONOCYTES PERCENT AUTO 10 % (4-13); Mean Corpuscular HGB 31.1 pg (26.0-34.0); Mean Corpuscular HGB Conc 30.5 g/dL (31.5-36.5); Mean Corpuscular Volume 102 fL (80-100); Mean Platelet Volume 10.8 fL (9.1-12.4); NEUTROPHILS ABSOLUTE AUTO 5.69 K/mm3 (1.96-9.15); NEUTROPHILS PERCENT AUTO 66 % (41-73); Platelet Count 174 K/mm3 (150-400); RDW Coefficient Variation 13.2 % (11.7-14.2); RDW Standard Deviation 48.8 fL (35.1-46.3); Red Blood Cell Count 2.73 M/mm3 (4.30-5.90); White Blood Cell Count 8.59 K/mm3 (4.00-11.30)
--- NOTE | 2020-10-19 07:26 | NUR ---
SHIFT SUMMARY: AOX3, FORGETFUL AT TIMES. HISTORY OF DEMENTIA. LUNG SOUNDS TIGHT AND DIMINISHED. COUGH OCCATIONAL. GOT A COUPLE OF BREATHING TREATMENTS THAT CLEARED IT RIGHT UP. NO PAIN OR DISCOMFORT NOTED. ABLE TO GET UP WITH 1 ASSIST. EDEMA TO BLE. NO BM LAST NIGHT. SINUS ON TELE. SLEPT WELL T/O THE NIGHT. VS WITH SLIGHT ELEVATION OF BP THIS AM, HE HAS DONE THIS THE PAST FEW DAYS BUT WHEN RECHECKED THEY ARE NORMAL. DENIED ANY CHEST DISCOMFORT OR CARDIAC SYMPTOMS. DENIED ANY OTHER NEEDS OR CONCERNS. CALL LIGHT IS IN REACH. BED ALARM IS ON.
--- NOTE | 2020-10-19 13:07 | NUR ---
PT TO DC TO [facility] TODAY PER PHYSICIAN.
--- NOTE | 2020-10-19 13:57 | NUR ---
[facility] REPORTS NO BEDS ARE AVAILABLE TODAY; PT WILL HAVE TO DC TOMORROW.
--- NOTE | 2020-10-19 16:26 | NUR ---
SHIFT SUMMARY PT HAS BEEN ALERT, ORIENTED X3; FORGETFUL/CONFUSED AT TIMES; BED ALARM ON. PT C/O PAIN, WHICH HE HAS BEEN MEDICATED WITH OXYCODONE FOR. PT IS USING SBA UP TO BSC THIS SHIFT. TELE IN PLACE. USING 2L O2 TO MAINTAIN O2 SAT. PLAN WAS FOR PT TO DC TO [facility] TODAY, HOWEVER [facility] DOES NOT HAVE ANY BEDS AVAILABLE. PLAN TO DC TOMORROW.
[2020-10-19] MEDS ORDERED: MIRALAX17 G3 PO (16:33)
[2020-10-19] MEDS ORDERED: VISBIOME 112.51 EACH PO (16:34)
--- NOTE | 2020-10-20 05:00 | NUR ---
SHIFT SUMMARY PT HAS RESTED MOST OF THE NIGHT, MEDICATED FOR PAIN X1. PT HAS DENIED NEEDS MOST OF THE NIGHT. A/OX4, BUT LABILE. CAN BE PLESANT BUT CAN EASILY BECOME IRRITABLE. PT REMOVED OXYGEN WHILE HE WAS SLEEPING, SATS DROPPED TO 44% PER MANAGER INFORMATION TARAN REPORT. WITH OXYGEN PLACED, PT QUICKLY RECOVERED WITH HIS SATS GREATER THAN 90%. NO RESPIRATORY DISTRESSED NOTED. INCREASED O2 TO 4.5 INITAILLY TO GET SATS UP, AFTER A SHORT PERIOD PT WAS ABLE TO RETURN TO 3L O2. PT HAD LOW GRADE FEVER THIS AM, BLANKETS REMOVED AND TEMPERATURE LOWERED IN ROOM. TEMP IS WNL AT THIS TIME, NO OTHER CHANGES TO REPORT THIS SHIFT. BED IN LOWEST POSITION, CALL LIGHT WITHIN REACH.
--- NOTE | 2020-10-20 11:15 | NUR ---
Pt is alert, oriented. He is tearful at times. He reports moderate pain level and requested mediation. Pt reports that he doesn't feel well and he is frustrated, as he believed he would feel better this morning. No other concerns at this time. Care plan reviewed with pt.
--- NOTE | 2020-10-20 18:42 | NUR ---
Shift Summary: Pt slept a lot of the shift today, states he did not sleep well at all last night. Medicated for pain X1 with 10mg oxycodone - can have every 6 hours as needed. Pt slightly anxious when awake. No concerns this shift. Pt on 2 L O2, as baseline at home.
--- NOTE | 2020-10-21 03:56 | NUR ---
SHIFT SUMMARY NO ACUTE CHANGES TO REPORT THIS SHIFT. PT HAS RESTED MOST OF THE NIGHT, LOW GRADE FEVER AGAIN THIS SHIFT. PT WAS COVERED IN BLANKETS AND TEMP IN ROOM WAS INCREASED, WHICH MORE THAN LIKELY CONTRIBUTED TO TEMPERATURE READING. TEMPERATURE LOWERED AND EXTRA BLANKETS REMOVED. PT A/OX3 BUT FORGETUL AND EASILY AGITATED DOES NOT LIKE TO BE DISTURBED. VITALS ARE STABLE, PLAN IS STILL DC BACK TO [facility] WITHIN THE NEXT FEW DAYS. BED IN LOWEST POSITON, CALL LIGHT WITHIN REACH.
[2020-10-21 05:34] LABS: BASOPHILS ABSOLUTE AUTO 0.05 K/mm3 (0.00-0.23); BASOPHILS PERCENT AUTO 1 % (0-2); EOSINOPHILS ABSOLUTE AUTO 0.39 K/mm3 (0.00-0.68); EOSINOPHILS PERCENT AUTO 4 % (0-6); Hematocrit 27.8 % (37.0-53.0); Hemoglobin 8.4 g/dL (13.5-17.5); IMMATURE GRAN ABSOLUTE AUTO 0.04 K/mm3 (0.00-0.10); IMMATURE GRAN PERCENT AUTO 0 % (0-1); LYMPHOCYTES PERCENT AUTO 15 % (21-46); MONOCYTES ABSOLUTE AUTO 1.16 K/mm3 (0.16-1.47); MONOCYTES PERCENT AUTO 13 % (4-13); Mean Corpuscular HGB 31.2 pg (26.0-34.0); Mean Corpuscular HGB Conc 30.2 g/dL (31.5-36.5); Mean Corpuscular Volume 103 fL (80-100); Mean Platelet Volume 10.7 fL (9.1-12.4); NEUTROPHILS ABSOLUTE AUTO 6.08 K/mm3 (1.96-9.15); NEUTROPHILS PERCENT AUTO 67 % (41-73); Platelet Count 201 K/mm3 (150-400); RDW Coefficient Variation 12.9 % (11.7-14.2); RDW Standard Deviation 47.4 fL (35.1-46.3); Red Blood Cell Count 2.69 M/mm3 (4.30-5.90); White Blood Cell Count 9.12 K/mm3 (4.00-11.30)
[2020-10-21 06:01] LABS: Bun/Creatinine Ratio 11.3 (12.0-20.0); Calcium, Blood 8.8 mg/dL (8.5-10.1); Creatinine, Blood 1.86 mg/dL (0.60-1.20); Potassium, Blood 4.3 mmol/L (3.5-5.5)
--- NOTE | 2020-10-21 08:44 | NUR ---
Pt is alert, oriented. Pt accepted Miralax and oxycodone this morning, but refused the rest of his AM medications. Reviewed with Dr. Zapata: verbal order for mag citrate X1. Pt discharging back to facility today.
--- NOTE | 2020-10-21 13:22 | NUR ---
Call placed to [facility], per Dr. Zapata request. [facility] staff reports that the matter is being under review and processed. Staff explains that the issue is that pts are required to quarentine in a private room after being outside the facility: This patient has a roommate; they are trying to re-room the roomate to accomodate the resident back to the facility. [facility]. Of cares: Administered mag citrate, per one time order.
--- NOTE | 2020-10-21 14:48 | NUR ---
Called report to [facility]. Pt already being discharged by staff.
== END 2020-10-21 14:16 | DRG 871 ==
LOC: ER 04:03 → PCU 05:28 → ERHOLD 05:28 → PCU 10:32 → MEDS 10-17 13:50 → ENPENDDIS 10-19 13:50 → MEDS 10-21 14:16
PROVIDERS: Emergency Medicine; Internal Medicine; Internal Medicine Gastroenterology; ADMIT Family Medicine
PROC: 0DJD8ZZ Inspection of Lower Intestinal Tract, Via Natural or Artificial Opening Endoscopic (ICD-10-PCS; 2020-10-16)
PROC: 30233N1 Transfusion of Nonautologous Red Blood Cells into Peripheral Vein, Percutaneous Approach (ICD-10-PCS; principal; 2020-10-17)
DX: A41.9 Sepsis, unspecified organism (principal); K57.31 Diverticulosis of large intestine without perforation or abscess with bleeding; D62 Acute posthemorrhagic anemia; J96.11 Chronic respiratory failure with hypoxia; Z20.822 Contact with and (suspected) exposure to COVID-19; J44.9 Chronic obstructive pulmonary disease, unspecified; G47.33 Obstructive sleep apnea (adult) (pediatric); M54.5 Low back pain; I48.0 Paroxysmal atrial fibrillation; G89.29 Other chronic pain; F10.10 Alcohol abuse, uncomplicated; N18.30 Chronic kidney disease, stage 3 unspecified; R19.7 Diarrhea, unspecified; R62.7 Adult failure to thrive; F41.8 Other specified anxiety disorders; I12.9 Hypertensive chronic kidney disease with stage 1 through stage 4 chronic kidney disease, or unspecified chronic kidney disease; I71.4 Abdominal aortic aneurysm, without rupture; F03.90 Unspecified dementia, unspecified severity, without behavioral disturbance, psychotic disturbance, mood disturbance, and anxiety; Z68.28 Body mass index [BMI] 28.0-28.9, adult; Z99.81 Dependence on supplemental oxygen; Z90.49 Acquired absence of other specified parts of digestive tract; Z98.890 Other specified postprocedural states; Z87.891 Personal history of nicotine dependence; Z79.82 Long term (current) use of aspirin; Z79.899 Other long term (current) drug therapy
CPT/HCPCS: 0097U; 36415; 36430; 74176; 80048; 80053; 82105; 83605; 83690; 83735; 83880; 84145; 85014; 85018; 85025; 85610; 85730; 86317; 86704; 86708; 86803; 86850; 86900; 86901; 86923; 87340; 93005; 93010; 94640; 94760; 94762; 96365; 96375; 97110; 97162; 97165; 97530; 99285-25; A9270; J0744; J1170; J2704; J7030; J7050; J7120; P9016; U0004

== ENCOUNTER 2020-10-26 22:10 | Emergency (ER) | payer MEDICARE, OTHER ==
[~2020-10-26] VITALS: Ht 167.6 cm; Wt 81.7 kg
[~2020-10-26 22:10] MED LIST changes: +ATROVENT HFA12.9 GM INH; +Amlodipine Bes2.5 MG PO; +BUME1 PO; +CENTRUM SILVER1 EAC2 PO; +GABA100 PO; +MIRALAX17 G3 PO; +MIRT15 PO; +RAYALDEE30 MCG PO; +VISBIOME 112.51 EACH PO
[2020-10-26 22:34] LABS: BASOPHILS ABSOLUTE AUTO 0.04 K/mm3 (0.00-0.23); BASOPHILS PERCENT AUTO 1 % (0-2); EOSINOPHILS ABSOLUTE AUTO 0.43 K/mm3 (0.00-0.68); EOSINOPHILS PERCENT AUTO 6 % (0-6); Hematocrit 29.6 % (37.0-53.0); Hemoglobin 8.7 g/dL (13.5-17.5); IMMATURE GRAN ABSOLUTE AUTO 0.03 K/mm3 (0.00-0.10); IMMATURE GRAN PERCENT AUTO 0 % (0-1); LYMPHOCYTES ABSOLUTE AUTO 1.03 K/mm3 (0.84-5.20); LYMPHOCYTES PERCENT AUTO 15 % (21-46); MONOCYTES ABSOLUTE AUTO 0.49 K/mm3 (0.16-1.47); MONOCYTES PERCENT AUTO 7 % (4-13); Mean Corpuscular HGB 30.9 pg (26.0-34.0); Mean Corpuscular HGB Conc 29.4 g/dL (31.5-36.5); Mean Corpuscular Volume 105 fL (80-100); Mean Platelet Volume 9.5 fL (9.1-12.4); NEUTROPHILS ABSOLUTE AUTO 4.94 K/mm3 (1.96-9.15); NEUTROPHILS PERCENT AUTO 71 % (41-73); Platelet Count 289 K/mm3 (150-400); RDW Coefficient Variation 12.5 % (11.7-14.2); RDW Standard Deviation 47.7 fL (35.1-46.3); Red Blood Cell Count 2.82 M/mm3 (4.30-5.90); White Blood Cell Count 6.96 K/mm3 (4.00-11.30)
[2020-10-26 22:55] LABS: Alanine Aminotransfer (ALT/SGP 24 U/L (12-78); Albumin, Blood 2.9 g/dL (3.4-5.0); Albumin/Globulin Ratio 0.8 (0.8-1.8); Alk Phos 127 U/L (50-136); Aspartate Aminotrans (AST/SGOT 24 U/L (12-37); Bilirubin, Total 0.3 mg/dL (0.1-1.0); Blood Urea Nitrogen 22 mg/dL (8-24); Bun/Creatinine Ratio 12.4 (12.0-20.0); Calcium, Blood 9.3 mg/dL (8.5-10.1); Chloride, Blood 100 mmol/L (98-108); Creatinine, Blood 1.77 mg/dL (0.60-1.20); Globulin, Blood 3.6 g/dL (2.2-4.0); Glomerular Filtration Rate 38 (60-); Glucose, Blood 136 mg/dL (70-99); Potassium, Blood 4.3 mmol/L (3.5-5.5); Sodium, Blood 143 mmol/L (136-145); Total Protein, Blood 6.5 g/dL (6.4-8.2); Troponin I <0.015 ng/mL (0.000-0.040)
[2020-10-26 22:56] LABS: Anion Gap Unable to Calculate mmol/L (6-16)
[2020-10-26 22:57] LABS: CO2, Blood >45 mmol/L (21-32)
[2020-10-26 23:44] LABS: PO2 Arterial 52.7 mmHg (80-100); pH Blood Arterial 7.37 (7.35-7.45)
[2020-10-27] MEDS ORDERED: Prednisone20 MG PO (00:23)
== END 2020-10-27 01:31 | disposition home or self-care (01) ==
LOC: ER 22:10
PROVIDERS: Emergency Medicine
DX: J44.9 Chronic obstructive pulmonary disease, unspecified (principal); I12.9 Hypertensive chronic kidney disease with stage 1 through stage 4 chronic kidney disease, or unspecified chronic kidney disease; N18.4 Chronic kidney disease, stage 4 (severe); Z79.899 Other long term (current) drug therapy; Z79.82 Long term (current) use of aspirin; Z87.891 Personal history of nicotine dependence
CPT/HCPCS: 36600; 71045; 80053; 82803; 83880; 84484; 85025; 93005; 93010; 94640; 96374; 99285-25; J2930

== ENCOUNTER 2020-10-27 19:59 | Emergency (ER) | payer MEDICARE, OTHER ==
[~2020-10-27] VITALS: Ht 165.1 cm; Wt 68.0 kg
[2020-10-27 20:26] LABS: BASOPHILS ABSOLUTE AUTO 0.01 K/mm3 (0.00-0.23); BASOPHILS PERCENT AUTO 0 % (0-2); EOSINOPHILS PERCENT AUTO 0 % (0-6); Hematocrit 28.9 % (37.0-53.0); Hemoglobin 8.9 g/dL (13.5-17.5); IMMATURE GRAN ABSOLUTE AUTO 0.03 K/mm3 (0.00-0.10); IMMATURE GRAN PERCENT AUTO 0 % (0-1); LYMPHOCYTES ABSOLUTE AUTO 1.09 K/mm3 (0.84-5.20); LYMPHOCYTES PERCENT AUTO 12 % (21-46); MONOCYTES ABSOLUTE AUTO 0.76 K/mm3 (0.16-1.47); MONOCYTES PERCENT AUTO 9 % (4-13); Mean Corpuscular HGB 30.7 pg (26.0-34.0); Mean Corpuscular HGB Conc 30.8 g/dL (31.5-36.5); Mean Platelet Volume 10.2 fL (9.1-12.4); NEUTROPHILS ABSOLUTE AUTO 6.91 K/mm3 (1.96-9.15); NEUTROPHILS PERCENT AUTO 79 % (41-73); Platelet Count 356 K/mm3 (150-400); RDW Coefficient Variation 12.7 % (11.7-14.2); RDW Standard Deviation 46.1 fL (35.1-46.3)
[2020-10-27 20:27] LABS: Mean Corpuscular Volume 100 fL (80-100)
[2020-10-27 20:45] LABS: Alanine Aminotransfer (ALT/SGP 31 U/L (12-78); Albumin/Globulin Ratio 0.8 (0.8-1.8); Alk Phos 130 U/L (50-136); Anion Gap 3 mmol/L (6-16); Aspartate Aminotrans (AST/SGOT 37 U/L (12-37); Bilirubin, Total 0.4 mg/dL (0.1-1.0); Blood Urea Nitrogen 26 mg/dL (8-24); Bun/Creatinine Ratio 13.2 (12.0-20.0); CO2, Blood 42 mmol/L (21-32); Calcium, Blood 9.5 mg/dL (8.5-10.1); Chloride, Blood 98 mmol/L (98-108); Creatinine, Blood 1.97 mg/dL (0.60-1.20); Globulin, Blood 3.8 g/dL (2.2-4.0); Glomerular Filtration Rate 34 (60-); Glucose, Blood 114 mg/dL (70-99); Potassium, Blood 4.4 mmol/L (3.5-5.5); Sodium, Blood 143 mmol/L (136-145); Total Protein, Blood 6.8 g/dL (6.4-8.2); Troponin I <0.015 ng/mL (0.000-0.040)
[2020-10-27 21:39] LABS: PCO2 Venous 68.1 mmHg (38-42); pH Blood Venous 7.43 (7.34-7.37)
[2020-10-27 21:40] LABS: Base Excess Venous 21.1 mmol/L; Bicarbonate Venous 42.8 mmol/L (24.0-30.0); PO2 Venous 185 mmHg (38-42)
== END 2020-10-28 00:10 | disposition home or self-care (01) ==
LOC: ER 19:59
PROVIDERS: Emergency Medicine
DX: J44.9 Chronic obstructive pulmonary disease, unspecified (principal); N18.4 Chronic kidney disease, stage 4 (severe); F03.90 Unspecified dementia, unspecified severity, without behavioral disturbance, psychotic disturbance, mood disturbance, and anxiety; Z99.81 Dependence on supplemental oxygen; Z87.891 Personal history of nicotine dependence; Z79.899 Other long term (current) drug therapy
CPT/HCPCS: 71045; 71260; 80053; 82803; 83880; 84145; 84484; 85025; 85379; 93005; 93010; 94640; 99285-25; J7120; Q9967

== ENCOUNTER 2020-11-18 15:58 | Emergency (ER) | payer MEDICARE, OTHER ==
[~2020-11-18] VITALS: Ht 177.8 cm; Wt 81.7 kg
[2020-11-18 17:54] LABS: BASOPHILS ABSOLUTE AUTO 0.05 K/mm3 (0.00-0.23); BASOPHILS PERCENT AUTO 1 % (0-2); EOSINOPHILS ABSOLUTE AUTO 0.22 K/mm3 (0.00-0.68); EOSINOPHILS PERCENT AUTO 4 % (0-6); Hematocrit 34.6 % (37.0-53.0); Hemoglobin 10.3 g/dL (13.5-17.5); IMMATURE GRAN ABSOLUTE AUTO 0.03 K/mm3 (0.00-0.10); IMMATURE GRAN PERCENT AUTO 1 % (0-1); LYMPHOCYTES ABSOLUTE AUTO 0.94 K/mm3 (0.84-5.20); LYMPHOCYTES PERCENT AUTO 16 % (21-46); MONOCYTES ABSOLUTE AUTO 0.68 K/mm3 (0.16-1.47); MONOCYTES PERCENT AUTO 12 % (4-13); Mean Corpuscular HGB 30.1 pg (26.0-34.0); Mean Corpuscular HGB Conc 29.8 g/dL (31.5-36.5); Mean Corpuscular Volume 101 fL (80-100); Mean Platelet Volume 10.6 fL (9.1-12.4); NEUTROPHILS ABSOLUTE AUTO 3.94 K/mm3 (1.96-9.15); NEUTROPHILS PERCENT AUTO 67 % (41-73); Platelet Count 218 K/mm3 (150-400); RDW Coefficient Variation 12.8 % (11.7-14.2); Red Blood Cell Count 3.42 M/mm3 (4.30-5.90); White Blood Cell Count 5.86 K/mm3 (4.00-11.30)
[2020-11-18 18:13] LABS: Alanine Aminotransfer (ALT/SGP 19 U/L (12-78); Albumin, Blood 2.9 g/dL (3.4-5.0); Albumin/Globulin Ratio 0.8 (0.8-1.8); Alk Phos 149 U/L (50-136); Anion Gap 0 mmol/L (6-16); Aspartate Aminotrans (AST/SGOT 18 U/L (12-37); Bilirubin, Total 0.5 mg/dL (0.1-1.0); Blood Urea Nitrogen 28 mg/dL (8-24); CO2, Blood 42 mmol/L (21-32); Calcium, Blood 9.6 mg/dL (8.5-10.1); Chloride, Blood 100 mmol/L (98-108); Creatinine, Blood 2.33 mg/dL (0.60-1.20); Globulin, Blood 3.6 g/dL (2.2-4.0); Glomerular Filtration Rate 28 (60-); Glucose, Blood 114 mg/dL (70-99); Potassium, Blood 4.3 mmol/L (3.5-5.5); Sodium, Blood 142 mmol/L (136-145); Total Protein, Blood 6.5 g/dL (6.4-8.2); Troponin I <0.015 ng/mL (0.000-0.040)
[2020-11-18 19:03] LABS: SARS-Cov-2 (COVID-19) PCR, MMC NEGATIVE (NEGATIVE)
[2020-11-18] MEDS ORDERED: LEVO750 PO (19:16)
== END 2020-11-18 21:57 | disposition home or self-care (01) ==
LOC: ER 15:58
PROVIDERS: Student in an Organized Health Care Education/Training Program
DX: J18.9 Pneumonia, unspecified organism (principal); R09.02 Hypoxemia; N17.9 Acute kidney failure, unspecified; J44.9 Chronic obstructive pulmonary disease, unspecified; G47.33 Obstructive sleep apnea (adult) (pediatric); I12.9 Hypertensive chronic kidney disease with stage 1 through stage 4 chronic kidney disease, or unspecified chronic kidney disease; N18.4 Chronic kidney disease, stage 4 (severe); F03.90 Unspecified dementia, unspecified severity, without behavioral disturbance, psychotic disturbance, mood disturbance, and anxiety; G89.29 Other chronic pain; Z20.822 Contact with and (suspected) exposure to COVID-19; Z79.82 Long term (current) use of aspirin; Z79.899 Other long term (current) drug therapy; Z99.81 Dependence on supplemental oxygen; Z87.891 Personal history of nicotine dependence
CPT/HCPCS: 36415; 71045; 80053; 83605; 83880; 84484; 85025; 87040; 93005; 93010; 96365; 99285-25; J1956; J7120; U0004